=== PATIENT | male | born 1980 | race Two or more races ===

== ENCOUNTER 2021-09-04 07:37 | Outpatient (CLI) | payer OTHER, SELFPAY ==
--- NOTE | 2021-09-23 13:04 | WPDSLEEPSTUD ---
Sleep Study Date of Study: 09/04/21 <Radha Sparrow, DO - Last Filed: 09/23/21 13:40> Ordering Provider: Kieran Barth APRN <Radha Sparrow, DO - Last Filed: 09/23/21 13:40> Interpreting Physician: Radha Sparrow DO <Radha Sparrow, DO - Last Filed: 09/23/21 13:40> Sleep Study Type: Polysomnogram <Radha Sparrow DO - Last Filed: 09/23/21 13:40> Height: 1.78 m <Radha Sparrow DO - Last Filed: 09/23/21 13:40> Weight: 96.162 kg <Radha Sparrow DO - Last Filed: 09/23/21 13:40> Body Mass Index: 30.4 <Radha Sparrow DO - Last Filed: 09/23/21 13:40> Neck Circumference (inches): 16 <Radha Sparrow DO - Last Filed: 09/23/21 13:40> [place]: 22 <Radha Sparrow DO - Last Filed: 09/23/21 13:40> Reason for Sleep Study Hypersomnia, Unrefreshing sleep, <Radha Sparrow, DO - Last Filed: 09/23/21 13:40> Sleep History The patient is a 41-year-old male with anxiety/depression that had a PSG and MSLT he ordered by the pulmonology group for daytime hypersomnia. 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 He is currently on fluoxetine 20 mg daily. 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 The patient states that he occasionally awakens from sleep short of breath. He occasionally awakens at night with heartburn, belching or cough. He rarely snores and is never loud enough that others complain. He rarely has trouble sleeping when he has a cold. He denies waking up gasping for air throughout the night. He denies having breathing problems at night observed by others. He denies sweating excessively at night. He denies heart palpitation or irregular heartbeats throughout the night. He constantly falls asleep during the day and while driving. He denies sleep paralysis, cataplexy and hypnagogic/ hypnopompic hallucinations.. He constantly has trouble at work due to sleepiness. He denies having nightmares. He occasionally has thoughts racing through his mind. He denies feeling sad or depressed but occasionally has anxiety. He denies noticing parts of his body jerk. He denies kicking throughout the night. He rarely experiences crawling and aching feelings in his legs. He rarely has leg pain during the night. He rarely grinds his teeth during sleep and rarely awakens with jaw pain in the morning. He is rarely bothered by pain during the day and is rarely awakened by pain during the night. He occasionally wakes up feeling stiff in the morning with sore and achy muscles. When the patient is working the day shift, he will go to bed at midnight on both weekdays and weekends. 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 on both the weekdays and weekends. It takes him 20 minutes to fall asleep. He will wake up 4-5 times throughout the night. When he awakens, he will roll over and go back to sleep. When he is working on the day shift, he will awaken at 5:00 a.m. on the weekdays and weekends. 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 He typically gets 5 hours of sleep per night. He will stay in bed for 5 minutes after awakening in the morning. He currently lives with his and children. He denies consuming caffeinated beverages within 2 hours of bedtime. He does not engage in physical exercise before bedtime. He does not read or watch television before falling asleep. He will take naps in the afternoon or evening but they are not refreshing. <Radha Sparrow DO - Last Filed: 09/23/21 13:40> [facility] Past Medical History Medical History: Medical History Anxiety Depression <Radha Sparrow DO - Last Filed: 09/23/21 13:40> Family History Family Histor
[2021-09-23 13:20] VITALS: BMI 30.4
--- NOTE | 2021-09-23 13:44 | WPDSLEEPSTUD ---
Sleep Study Date of Study: 09/04/21 <Radha Sparrow, DO - Last Filed: 09/23/21 14:39> Ordering Provider: Kieran Barth APRN <Radha Sparrow DO - Last Filed: 09/23/21 14:39> Interpreting Physician: Radha Sparrow DO <Radha Sparrow DO - Last Filed: 09/23/21 14:39> Sleep Study Type: Polysomnogram <Radha Sparrow DO - Last Filed: 09/23/21 14:39> Height: 1.78 m <Radha Sparrow DO - Last Filed: 09/23/21 14:39> Weight: 96.162 kg <Radha Sparrow DO - Last Filed: 09/23/21 14:39> Body Mass Index: 30.4 <Radha Sparrow DO - Last Filed: 09/23/21 14:39> Neck Circumference (inches): 16 <Radha Sparrow DO - Last Filed: 09/23/21 14:39> [place]: 22 <Radha Sparrow DO - Last Filed: 09/23/21 14:39> Reason for Sleep Study Excessive daytime sleepiness without significant sleep disordered breathing <Radha Sparrow DO - Last Filed: 09/23/21 14:39> Sleep History The patient is a 41-year-old male with anxiety/depression that had a PSG and MSLT he ordered by the pulmonology group for daytime hypersomnia. 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 He is currently on fluoxetine 20 mg daily. 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 The patient states that he occasionally awakens from sleep short of breath. He occasionally awakens at night with heartburn, belching or cough. He rarely snores and is never loud enough that others complain. He rarely has trouble sleeping when he has a cold. He denies waking up gasping for air throughout the night. He denies having breathing problems at night observed by others. He denies sweating excessively at night. He denies heart palpitation or irregular heartbeats throughout the night. He constantly falls asleep during the day and while driving. He denies sleep paralysis, cataplexy and hypnagogic/ hypnopompic hallucinations.. He constantly has trouble at work due to sleepiness. He denies having nightmares. He occasionally has thoughts racing through his mind. He denies feeling sad or depressed but occasionally has anxiety. He denies noticing parts of his body jerk. He denies kicking throughout the night. He rarely experiences crawling and aching feelings in his legs. He rarely has leg pain during the night. He rarely grinds his teeth during sleep and rarely awakens with jaw pain in the morning. He is rarely bothered by pain during the day and is rarely awakened by pain during the night. He occasionally wakes up feeling stiff in the morning with sore and achy muscles. When the patient is working the day shift, he will go to bed at midnight on both weekdays and weekends. 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 on both the weekdays and weekends. It takes him 20 minutes to fall asleep. He will wake up 4-5 times throughout the night. When he awakens, he will roll over and go back to sleep. When he is working on the day shift, he will awaken at 5:00 a.m. on the weekdays and weekends. 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 He typically gets 5 hours of sleep per night. He will stay in bed for 5 minutes after awakening in the morning. He currently lives with his and children. He denies consuming caffeinated beverages within 2 hours of bedtime. He does not engage in physical exercise before bedtime. He does not read or watch television before falling asleep. He will take naps in the afternoon or evening but they are not refreshing. <Radha Sparrow DO - Last Filed: 09/23/21 14:39> [facility] Past Medical History Medical History: Medical History Anxiety Depression <Radha Sparrow DO - Last Filed:
[2021-09-23 13:48] VITALS: BMI 30.4
== END 2021-09-05 16:02 | disposition home or self-care (01) ==
PROVIDERS: PCP Family Medicine; Visit Provider Nurse Practitioner Family
DX: G47.10 Hypersomnia, unspecified (principal)
CPT/HCPCS: 95805; 95810

== ENCOUNTER 2021-09-27 13:39 | Outpatient (CLI) | payer OTHER, SELFPAY ==
[2021-09-27 14:07] LABS: Iron 81 ug/dL (49-181)
[2021-09-27 14:16] LABS: Percent Iron Saturation 24 % (20-50)
[2021-09-27 14:25] LABS: Free T4 Free Thyroxine 0.98 ng/mL (0.78-2.19)
[2021-09-27 15:14] LABS: Folic Acid 6.6 ng/mL (2.76->20)
== END 2021-09-27 13:40 | disposition home or self-care (01) ==
LOC: ANHLAB 13:41
PROVIDERS: PCP Family Medicine; Visit Provider Nurse Practitioner Family
DX: R53.83 Other fatigue (principal)
CPT/HCPCS: 36415; 82607; 82746; 83540; 83550; 84439; 84443

== ENCOUNTER 2022-03-14 15:25 | Emergency (ER) | payer OTHER, SELFPAY ==
--- NOTE | ~2022-03-14 | CT_ITS ---
EXAMINATION: CT abdomen pelvis w con DATE: 03/14/2022 16:51 INDICATION: Sudden onset of left lower quadrant abdominal pain TECHNIQUE: Computed tomography (CT) of the abdomen and pelvis was performed with 100 CC Omnipaque 300 intravenous contrast. Automated exposure control and iterative reconstruction technique were employe d. Exam dose: 662.63 mGy-cm total exam DLP. COMPARISON: None. FINDINGS: Bilateral gynecomastia. Minimal bilateral lower lobe dependent atelectasis or less likely s carring. No infiltrate or consolidation at the lung bases. Normal heart size. No pericardial or pleural effusion. There are multiple very small scattered hepatic hypodensities, likely small hepatic cysts and/or jeff ngiomas. The gallbladder is present. No gallbladder wall thickening or pericholecystic fluid or fat stranding. No bile duct or pancreatic duct dilatation. No pancreatic mass lesion or calcification. Normal splen ic size. Normal morphology of the adrenal glands. There is a 3 x 4.5 mm calculus at the left ureterovesical junction with mild left hydroureteronephros is. There is a punctate upper pole nonobstructing left renal calculus 2 mm 4 mm nonobstructing lower pole left renal calculi are noted. Pinpoint nonobstructing upper pole and approximately 2 1.7 mm mid nonobstructing right renal calculi. No right ureteral calculus or hydroureteronephrosis. Moderate diffuse thickening of the urinary bladder wall. Mild sigmoid colon diverticulosis; no CT evidence of diverticulitis. There is prominent of fecal mate rial within the colon but no bowel obstruction. No evidence of appendicitis. Normal caliber of the abdominal aorta. No intraperitoneal or retroperitoneal or pelvic mass lesion or adenopathy or ascites. No suspicious osteolytic or osteoblastic lesions. . IMPRESSION: 3 x 4.5 mm left ureterovesical junction calculus with mild left hydroureteronephrosis Mild bilateral nonobstructive nephrolithiasis Minimal sigmoid colon diverticulosis; no CT evidence of diverticulitis Hepatic small cysts and/or hemangiomas Reviewed, dictated and finalized at [facility] Reviewed, dictated and finalized at [facility]. RY
[2022-03-14 15:29] VITALS: BP 120/96; PULSE 66; RESP 16; TEMP 36.3; O2SAT 100
[2022-03-14 16:16] LABS: Basophils Percent Auto 0.8 % (0.2-1.2); Eosinophils Absolute Auto 0.2 K/mm3 (0-0.3); Eosinophils Percent Auto 3.8 % (0-4.4); Hematocrit 47.8 % (42.0-52.0); Hemoglobin 16.1 g/dL (14.0-18.0); Immature Granulocyte Absolute 0.01 K/mm3 (0.00-0.031); Immature Granulocyte Percent A 0.2 % (0-0.5); Lymphocytes Absolute Auto 1.48 K/mm3 (0.9-3.2); Lymphocytes Percent Auto 27.8 % (18.3-44.2); Mean Corpuscular HGB Conc 33.7 g/dl (32-36); Mean Corpuscular Hemoglobin 29.9 pg (26-34); Mean Corpuscular Volume 88.7 fl (80-100); Mean Platelet Volume 11.6 fl (7.4-10.4); Monocytes Absolute Auto 0.7 K/mm3 (0.1-0.6); Monocytes Percent Auto 12.2 % (2.6-8.5); Neutrophils Percent Auto 55.2 % (45.5-73.1); Platelet Count Result 211 k/mm3 (150-375); Red Blood Count 5.39 M/mm3 (4.6-6.20); Red Cell Distribution Width 14.4 % (11.5-14.5); White Blood Count 5.3 K/mm3 (4.5-10.0)
--- NOTE | 2022-03-14 16:21 | ED.ABDPAIN ---
HPI - Abdominal Pain General Chief Complaint: Abdominal Pain Stated Complaint: LUQ abdominal pain Time Seen by Provider: 03/14/22 15:53 Source: RN notes reviewed History of Present Illness HPI narrative: Patient presents emergency room from home for abdominal pain. Patient states symptoms began this morning pain developed on the left side of the abdomen described as sharp and stabbing with radiation to the back states he tried to have a bowel movement with minimal relief of the pain states he not taking pain medication the pain at home denies any fevers or chills, nausea vomiting diarrhea or any other symptoms Related Data Allergies Allergy/AdvReac Type Severity Reaction Status Date / Time No Known Allergies Allergy Unverified 03/14/22 16:21 Review of Systems Review of Systems: Gen.: Denies fevers or chills ENT: Denies congestion Respiratory: Denies shortness of breath or cough CV: Denies chest pain or palpitations GI: See HPI denies burning, urgency, frequency or hematuria Musculoskeletal: Denies back pain or muscle pain Neuro: Denies numbness, tingling, weakness or focal weakness Skin: Denies rash Except as documented, all other systems reviewed and negative [facility] Past Medical History Medical History Anxiety Depression Family History Family History Mother Diabetes mellitus Grandparent Cancer Grandparent Cancer Social History Social History Smoking end date: 11/09/12 Alcohol intake: current Drinks per week: 1 Alcohol use details: 1 deshawn a week Substance use: unknown Exam Narrative: APPEARANCE: No acute distress, nontoxic, resting in bed HEENT: Normocephalic, atraumatic, OMM RESPIRATORY: No respiratory distress, clear to auscultation bilaterally with no rhonchi wheezing or rales CARDIOVASCULAR: RRR s murmur ABDOMINAL: Soft nondistended tender palpation left lower quadrant left lower quadrant no tenderness right upper quadrant right lower quadrant no rebound or guarding MUSCULOSKELETAl: Moves all extremities. No clubbing, cyanosis or edema. NEURO: Awake and alert. Following commands, speech normal, no focal deficits SKIN:: Warm, dry. Normal Color PSYCHIATRIC: Normal affect/mood Course Course Emergency Course: Patient states that they are feeling much better at this time. States abdominal pain has improved. Repeat abdominal exam shows the patient's abdomen to be soft with no surgical abdomen present discussed with patient results of workup and diagnosis. Discussed need for follow-up with primary care physician, reasons to return to the emergency department in proper use of medication. Patient understands and agrees to current treatment plan Vital Signs Vital signs: Vital Signs Temperature 97.4 F L 03/14/22 15:29 Pulse Rate 66 03/14/22 15:29 Respiratory Rate 16 03/14/22 15:29 Blood Pressure 120/96 H 03/14/22 15:29 Pulse Oximetry 100 03/14/22 15:29 Temperature 97.4 F L 03/14/22 15:29 Pulse Rate 66 03/14/22 15:29 Respiratory Rate 16 03/14/22 15:29 Blood Pressure 120/96 H 03/14/22 15:29 Pulse Oximetry 100 03/14/22 15:29 MDM - Abdominal Pain MDM Narrative Medical decision making narrative: Patient's abdomen is soft without significant pain or signs of surgical abdomen on serial exams. Lab and x-ray evaluations are reviewed and patient is felt to be a reasonable candidate for outpatient management. Patient was instructed as to limitations of x-ray and laboratory evaluation and encouraged to return to ED or primary physician for repeat exam in 12 hours if continued or worsening pain Lab Data Result diagrams: 03/14/22 16:09 03/14/22 16:09 Labs: Lab Results 03/14/22 03/14/22 03/14/22 Range/Units 16:09 16:09 16:17 WBC 5.3 (4.5-10.0) K/mm3 RBC 5.3
[2022-03-14 16:27] LABS: Appearance Urine Slightly Cloudy (Clear); Bilirubin Urine Negative (Negative); Blood Urine 3+ (Negative); Glucose Urine UA Negative (Negative); Ketones Urine Negative (Negative); Leukocyte Esterase Ur Negative LEU/UL (Negative); Nitrate Urine Negative (Negative); Protein Urine 1+ mg/dL (Negative); Specific Grav Ur 1.015 (1.001-1.035)
[2022-03-14 16:28] LABS: Add Urine Microscopic? YES; Color Urine Dark Yellow (Yellow)
[2022-03-14 16:31] LABS: Alanine Aminotransferase 104 U/L (4-50); Albumin Level 4.3 g/dL (3.5-5.1); Alkaline Phosphatase 85 U/L (38-126); Anion Gap 5 mmol/L (8-16); Aspartate Amino Transferase 61 U/L (17-59); Blood Urea Nitrogen 11 mg/dL (9-20); Calcium 8.7 mg/dL (8.4-10.2); Carbon Dioxide 25 mmol/L (22-30); Chloride 106 mmol/L (98-107); Estimated CRCL calculation 101 ml/min; Estimated Glomerular Filt Rate > 60; Glucose 97 mg/dL (65-110); Lipase 105 U/L (23-300); Potassium 4.2 mmol/L (3.4-5.0); Sodium 136 mmol/L (137-145)
[2022-03-14 16:33] LABS: Mucus Urine Rare /lpf; RBC Urine >75 /hpf (0-2); WBC Urine 0-3 /hpf
[2022-03-14] MEDS: SODIUM CHLORIDE 0.9% IV 1,000 ML 999 ML IV CONT (16:37)
[2022-03-14] MEDS: KETOROLAC 30 MG/ML VIAL (*BKC) IV PUSH (16:38)
[2022-03-14] MEDS: TAMSULOSIN HCL 0.4 MG CAPSULE PO (17:24)
== END 2022-03-14 17:30 | disposition home or self-care (01) ==
PROVIDERS: Emergency Provider Emergency Medicine; PCP Family Medicine
DX: N13.2 Hydronephrosis with renal and ureteral calculous obstruction (principal); F41.9 Anxiety disorder, unspecified; F32.A Depression, unspecified
CPT/HCPCS: 36415; 74177; 80053; 81001; 83690; 85025; 96361; 96374; 99284; A9270; J1885; J7030; Q9967

== ENCOUNTER 2022-11-04 09:53 | Emergency (ER) | payer OTHER, SELFPAY ==
--- NOTE | ~2022-11-04 | XR_ITS ---
Lumbosacral Spine: AP, oblique, and lateral views Clinical History: Pain Findings: The normal lordotic curve is maintained. The vertebral bodies and posterior elements are i ntact. The intervertebral disc spaces are preserved. The sacroiliac joints are normally outlined. Impression: No significant abnormality. Reviewed, dictated and finalized at [facility]. FILER Impression: No significant abnormality.
[2022-11-04 10:14] VITALS: BP 125/79; PULSE 72; RESP 20; TEMP 36.6; O2SAT 98
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
[2022-11-04 11:19] VITALS: BP 122/83; PULSE 84; RESP 15; O2SAT 99
== END 2022-11-04 11:20 | disposition home or self-care (01) ==
LOC: ANHED 11:12
PROVIDERS: Emergency Provider Physician Assistant; PCP Nurse Practitioner
DX: S39.012A Strain of muscle, fascia and tendon of lower back, initial encounter (principal); V89.2XXA Person injured in unspecified motor-vehicle accident, traffic, initial encounter; F41.9 Anxiety disorder, unspecified; F32.9 Major depressive disorder, single episode, unspecified
CPT/HCPCS: 72110; 99283

== ENCOUNTER 2023-10-19 14:43 | Emergency (ER) | payer OTHER, SELFPAY ==
--- NOTE | ~2023-10-19 | XR_ITS ---
EXAMINATION: XR elbow LT min 3V DATE: 10/19/2023 15:05 INDICATION: Left elbow pain TECHNIQUE: Anteroposterior, two oblique and lateral views of the left elbow were obtained. COMPARISON: None. FINDINGS: Alignment is normal. No fracture or joint effusion. 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 Soft tissues are unremarkable. IMPRESSION: 1. No acute osseous abnormality. Reviewed, dictated and finalized at [facility]. [facility]
--- NOTE | ~2023-10-19 | CT_ITS ---
EXAMINATION: CT brain wo con INDICATION: Headache COMPARISON: None TECHNIQUE: Standard unenhanced head CT. The dose-length product (DLP) was 605.33 mGy-cm. The mA was a djusted according to patient size. Iterative reconstruction technique was employed. FINDINGS: No intracranial hemorrhage, acute infarction, or abnormal mass lesion. The ventricles are n ormal. No abnormal mass effect or midline shift. The worthy-white matter differentiation is normal. The basal cisterns are patent. The orbits are normal. There is mild mucosal thickening of the paranasal sinuses. IMPRESSION: 1. No acute intracranial abnormality. Reviewed, dictated and finalized at [facility]. REPORTER
[2023-10-19 14:54] VITALS: BP 136/90; PULSE 89; RESP 18; TEMP 36.6; O2SAT 100
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
== END 2023-10-19 16:34 | disposition home or self-care (01) ==
PROVIDERS: Emergency Provider Physician Assistant; PCP Internal Medicine Critical Care Medicine
DX: M25.522 Pain in left elbow (principal); S09.90XA Unspecified injury of head, initial encounter; Z87.891 Personal history of nicotine dependence; V89.2XXA Person injured in unspecified motor-vehicle accident, traffic, initial encounter; Y92.481 Parking lot as the place of occurrence of the external cause
CPT/HCPCS: 70450; 73080; 99284

== ENCOUNTER 2025-04-05 07:19 | Inpatient (IN) | payer BC, OTHER, SELFPAY ==
[2025-04-05] VITALS (23 sets, daily range): BP systolic 107–136; BP diastolic 74–98; PULSE 82–96; RESP 14–36; TEMP 36.8–36.9; O2SAT 96–99
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
--- OUTSIDE RECORDS SUMMARY | 2025-04-05 07:22 | XMS_ITS | Clinical Summary ---
Author Organization [facility] Address [address] [place] [address] Care Team Providers Care Planner Scheduler Name Role Phone Unavailable Primary Care Provider Unavailabl e Source Comments [facility],non-owned Affiliates and Associated Physician Practices is amultiple site organization consisting of ambulatory clinics and hospital sitesin [place], [place], [place] and [place]. This disclosure is being madepursuant to the Care Everywhere program and may not contain all information available regarding this patient. Last updated 18.[facility] Medications * Be aware that medications may not be up to date on this document. Alwaysverify current medications with the patient. ketoconazole (NIZORAL) 2 % shampoo 120 mL 5 04/27/2017 Active Active Problems Problem Noted Date Diagnosed Date Neoplasm of uncertain behavior of skin 7 Other seborrheic dermatitis 04/28/2017 Immunizations Immunization Administration Dates Next Due INFLUENZA VACCINE, QUADR. (F LUZONE; FLULAVAL; FLUARIX; AFLURIA QUADRIVALENT; 6MO+), 0.5 ML (IIV4) 09/23/2018 Family History Medical History Relation Name Comments CVA Neg Hx Cancer - Breast Neg Hx Cancer - Skin, Melanoma Neg Hx Cancer - Skin, Non Melanoma Neg Hx Eczema Neg Hx Hemophilia Neg Hx Psoriasis Neg Hx Social History Tobacco Use Types Packs/Day Years Used Date Smoking Tobacco: Never Smokeless Tobacco: Never Alcohol Use Standard Drinks/Week Comments No 0 (1 standard drink = 0.6 oz pur e alcohol) Sex and Gender Information Value Date Recorded Sex Assigned at Not on file Legal Sex Male 5:35 PM [employer] Gender Identity Not on file Sexual Orientation Not on file Plan of Treatment Health Maintenance Due Date Last Done Comments LIPID TESTING 1981 HIV SCREENING 1996 HEPATITIS C SCREENING 09/16/1999 DTAP/TDAP/TD VACCINES (1 - Tdap) 2000 HEPATITIS B VACCINE (1 of 3 - 19+ 3-dose series) 2000 COVID-19 VACCINE (1 - 2023- season) 2024 DEPRESSION SCREENING 11/09/2024 INFLUENZA VACCINE (Season Ended) 2025 09/23/2018, 09/01/2016, 07/28/2015, Additional history exists ZOSTER VACCINE (1 of 2) 2031 HIB VACCINE Aged Out No longer eligi ble based on patient's age to complete this topic HPV VACCINE Aged Out No longer eligi ble based on patient's age to complete this topic MENINGOCOCCAL (Group B) VACCINE SHARED DECISION-MAKING Aged Out No longer eligible based on patient's age to complete this topic MENINGOCOCCAL GROUPS A/C/Y/W VACCINE Aged Out No longer eligible based on patient's age to complete this topic PNEUMOCOCCAL VACCINE Aged Out No long er eligible based on patient's age to complete this topic Insurance AMBER
--- OUTSIDE RECORDS SUMMARY | 2025-04-05 07:22 | XMS_ITS | Encounter Summary ---
Author Name [facility] ([place]) Organization [facility] of [facility] ([place]) Address [address] [place] [address] Care Team Providers Care Reformatory Attendant Name Role Phone DOMINIQUE MCGUIRE Primary Care Provider Unavailabl e Selected Encounter This section includes the information on record at [place] for the Encounter. Date/Time Encounter Type Encounter Description Reason Provider Source March 29, 2025 02:00 PM OFFICE O/P EST MOD 30 MIN PRIMARY CARE/MEDICINE ICD-10-CM R06.00 Dyspnea, unspecified DOMINIQUE MCGUIRE IHE Encounter Template Text not used by [place] Assessments - Encounter Diagnoses This section includes the primary and secondary diagnoses documented for the Encounter. 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 This section includes future appointments and future orders which are active, pending or scheduled. Future Appointments This section includes appointments that were scheduled to occur 6 months from the date of the Encounter, up to a maximum of 20 appointments. The data comes from all [place] treatment facilities. Appointment Date/Time Appointment Type Appointme nt Facility Name April 07, 2025 01:30 PM AMBULATORY - MEDICINE [facility] Active, Pending, and Scheduled Orders This section includes a listing of several types of active, pending, and scheduled orders, including clinic medications orders, diagnostic test orders, procedure orders and consult orders; where the start date of the order is 45 days before the date of the Encounter or 45 days after the date of theEncounter. The data comes from all [facility]. Test Date/Time Test Type Test Details Facility Name March 30, 2025 09:08 AM Procedure Order CP TTE ECH OCARDIOGRAM ANTELMO CP TTE ECHOCARDIOGRAM STL Proc Compliance Technician's Choice [facility] Lab Results: +/- 30 days of the encounter This section includes the Chemistry and Hematology Lab Results on record with [place] for the patient. Radiology Reports and Pathology Reports are provided separately, in subsequent sections. Lab Results This section contains the Chemistry/Hematology Results that were resulted 30 days before or 30 daysafter the date of the Encounter. Date/Time Source Result Type Result - Unit Interpretation Reference Range Specimen Type Comment March 29, 2025 03:09 PM [facility] URINALYSIS (STL-PB) URINE Specimen Type: URINE No comment entered. Ordering Provider: DOMINIQUE MCGUIRE Report Released Date/Time: March 29, 2025 02:38 PM Reporting Lab: [facility] [phone] Performing Lab: [facility] [id number] URINE COLOR Yellow Yellow U.BILIRUBIN Negative mg/dL Negative U.PH 6.0 5.0-8.0 APPEARANCE Clear Clear U.NITRITE Negative mg/dL Negative URN.GLUCOSE 500 mg/dL H Negative URN.PROTEIN 10 mg/dL H URN.UROBILINOGEN Normal mg/dL Normal URN.BLOOD Negative mg/dL Negative-Trace URN.KETONES Negative mg/dL Negative-Trac e URN.LEUK.EST. Negative mg/dL Negative-Tr tom URN.SPECIFIC GRAVITY 1.018 March 29, 2025 03:09 PM [facility] URINE DRUG SCREEN (STL) URINE Specimen Type: URINE Comment: The cut-off value for Fentanyl was laboratory developed and its performance characteristics confirmed by the [facility] laboratory thru method comparison with reference laboratory and medication chart review. The laboratory is regulated under CLIA as qualified to perform high-complexity testing. Fentanyl is used for clinical purposes in conjunction with other laboratory tests. Ordering Provider: DOMINIQUE MCGUIRE Report Released Date/Time: March 29, 2025 02:38 PM Reporting Lab: [facility] [place] [address] Performing Lab: [facility] [place] [address] ETHANOL <10.0 mg/dL 0-9 AMPHET/METHAMPHETAMINE Negative ng/mL COCAINE METABOLITES Negative ng/mL BENZODIAZEPINES (STL) Negative ng/mL CANNABINOIDS Negative ng/mL METHADONE Negative ng/mL OPIATES Negative ng/mL CREATININE URINE/OTHERS 69.5 mg/dL 63.0- 166.0 OXYCODONE (GMWPC-RAI-DU) Negative ng/mL BUPRENORPHINE (STL-PB-MA) Negative ng/mL FENTANYL (STL) Negative ng/mL March 29, 2025 03:05 PM [facility] COMPREHENSIVE METABOLIC PANEL PLASMA Specimen Type: PLASMA Comment: No hemolysis noted. Ordering Provider: DOMINIQUE MCGUIRE Report Released Date/Time: March 29, 2025 02:38 PM Reporting Lab: [facility] [place] [address] Performing Lab: [facility] [place] [phone] CREATININE 1.31 mg/dL H 0.70-1.30 UREA NITROGEN 11.4 mg/dL 9.0-25.0 GLUCOSE 67 mg/dL L 72-99 SODIUM 138 meq/L 136-145 POTASSIUM 4.0 meq/L 3.5-5.0 CHLORIDE 104 meq/L 98-107 CARBON DIOXIDE 25 meq/L 22-31 CALCIUM 9.5 mg/dL 8.4-10.4 PROTEIN 7.7 g/dL 6.0-8.6 ALBUMIN 4.1 g/dL 3.4-5.0 TOTAL BILIRUBIN 2.3 mg/dL H 0.2-1.2 ALKALINE PHOSPHATASE 94 U/L 40-150 AST/SGOT 26 U/L 5-34 ALT/SGPT 32 U/L 8-40 EGFR (CKD-EPI 2020) 69.26 >60 March 29, 2025 03:05 PM [facility] LIPID PANEL (STL) PLASMA Specimen Type: PLASM A Comment: No hemolysis noted. Ordering Provider: DOMINIQUE MCGUIRE Report Released Date/Time: March 29, 2025 02:38 PM Reporting Lab: [facility] [place] [address] Performing Lab: [facility] [place] [address] CHOLESTEROL 152 mg/dL 0-200 TRIGLYCERIDE 48 mg/dL 0-150 CALCULATED LDL 82 mg/dL See Interp HDL(New) 60 mg/dL > 40 March 29, 2025 03:05 PM [facility] CBC BLOOD Specimen Type: BLOOD Comment: SCAN OF SLIDE AGREES WITH AUTOMATED DIFF. Ordering Provider: DOMINIQUE MCGUIRE Report Released Date/Time: March 29, 2025 02:38 PM Reporting Lab: [facility] [place] [phone] Performing Lab: [facility] [place] [phone] WBC 8.4 10*3/uL 3.6-11.2 RBC 5.32 10*6/uL 4.10-5.70 HGB 15.5 g/dL 13.1-16.8 HCT 45.6 38.2-48.4 MCV 85.7 fL 80.0-100.0 MCH 29.1 pg 27.0-34.0 MCHC 34.0 g/dL 33.0-36.0 PLT 219 10*3/uL 150-400 MPV 11.1 fL 7.5-11.2 PLT. (SMEAR EST.) ADEQUATE ADEQUATE RDW 13.9 11.8-15.1 LYMPHOCYTES, AUTO % 11 MONOCYTES, AUTO % 12 NEUTROPHILS, AUTO % 73 EOSINOPHILS, AUTO % 3 BASOPHILS, AUTO % 1 LYMPHOCYTES, ABSOLUTE 0.94 10*3/uL 0.77- 4.50 MONOCYTES, ABSOLUTE 1.02 10*3/uL H 0.19-0. 80 NEUTROPHILS, ABSOLUTE 6.08 10*3/uL 2.10- 8.00 EOSINOPHILS, ABSOLUTE 0.25 10*3/uL 0.00- 0.60 BASOPHILS, ABSOLUTE 0.05 10*3/uL 0.00-0. 20 IMMATURE PLT FRACTION 4.3 1.0-7.0 NRBC% 0 NORMRBC YES SCRNPERF YES March 29, 2025 03:05 PM [facility] HGA1C BLOOD Specimen Type: BLOOD No comment entered. Ordering Provider: DOMINIQUE MCGUIRE Report Released Date/Time: March 29, 2025 02:38 PM Reporting Lab: [facility] [phone] Performing Lab: [facility] [phone] HGA1C 5.1 4.0-6.0 March 29, 2025 03:05 PM [facility] HEP C Ab HCV Ab (STL) SERUM Specimen Type: SE RUM No comment entered. Ordering Provider: DOMINIQUE MCGUIRE Report Released Date/Time: March 29, 2025 02:38 PM Reporting Lab: [facility] [address] [facility] [phone] Performing Lab: [facility] [address] [place] [phone] HEP C Ab HCV Ab (STL) Nonreactive Nonrea ctive March 29, 2025 03:05 PM [facility] HEP B CORE IgM AB. ([id number]) SERUM Spe cimen Type: SERUM No comment entered. Ordering Provider: DOMINIQUE MCGUIRE Report Released Date/Time: March 29, 2025 02:38 PM Reporting Lab: [facility] [address] [place] [place] [address] Performing Lab: [facility] [address] [phone] HEP B CORE IgM AB. ([id number]) Nonreactive Nonreactive March 29, 2025 03:05 PM [facility] FREE T4 (STL) PLASMA Specimen Type: PLASM A No comment entered. Ordering Provider: DOMINIQUE MCGUIRE Report Released Date/Time: March 29, 2025 02:38 PM Reporting Lab: [facility] [place] [address] Performing Lab: [facility] [place] [address] FREE T4 (STL) 1.30 ng/mL 0.70-1.48 March 29, 2025 03:05 PM [facility] TSH W/ REFLEX FT4 (STL) PLASMA Specimen Type: PLASMA No comment entered. Ordering Provider: DOMINIQUE MCGUIRE Report Released Date/Time: March 29, 2025 02:38 PM Reporting Lab: [facility] [place] [address] Performing Lab: [facility] [place] [address] TSH 1.250 u[IU]/mL 0.470-5.000 March 29, 2025 03:05 PM [facility] VITAMIN D, 25-HYDROXY SERUM Specimen Type: SE RUM No comment entered. Ordering Provider: DOMINIQUE MCGUIRE Report Released Date/Time: March 29, 2025 02:38 PM Reporting Lab: [facility] [place] [address] Performing Lab: [facility] [facility] [phone] VITAMIN D, 25-HYDROXY 11.1 ng/mL L 30-96 Vital Signs: All taken on the encounter date This section contains inpatient and outpatient Vital Signs collected on the date of the Encounter. Date/Time Temperature Pulse Blood Pressure Respiratory Rate SP02 Pain Height Weight Body Mass Index Source March 29, 2025 02:19 PM 98.2 83 110/73 18 99 0 186.4 27 [facility] Social History: Smoking Status (Most current) and Tobacco Use (All prior to encounter date) This section includes the most current, and the historical, smoking and tobacco- related health factors from the [place] facility where the Encounter took place. Current Smoking Status This section includes the most current smoking, or tobacco-related health factor, from the [place] facility where the Encounter took place. Date/Time Current Smoking Status Comment Facil ity Jun 13, 2024 02:00 PM [facility] NEVER USED [facility] Radiology Reports: +/- 30 days of the encounter Radiology Reports For cases when an order for radiology services may have been completed prior to the date of the Encounter, the report list includes the Radiology Reports that were completed up to 30 days before dateof the Encounter. For cases when an order for radiology services may have been completed after the date of the Encounter, the report list also includes the Radiology Reports that were completed up to30 days after date of the Encounter. The data comes from all [place] treatment facilities. Date/Time Radiology Report Provider Source March 29, 2025 02:58 PM CHEST X-RAY, 2 VIE WS: JESÚS RIOS I [id number] [phone] [id number] Exm Date: MARCH 29, 2025@14:58 Req Phys: DOMINIQUE MCGUIRE Pat Loc: [facility] PCP (Meena'g Loc) Img Loc: [facility]OLOGY Service: [facility], [facility] [address] [place], [place] [id number] (Case [id number] COMPLETE) CHEST X-RAY, 2 VIEWS (RAD Detailed) CPT:80670 Reason for Study: dyspnea x 1.5 mths Clinical History: Report Status: Verified Date Reported: MARCH 30, 2025 Date Verified: MARCH 30, 2025 Manager Track E-Sig:/ES/JACKIE HYMAN Report: CASE #: [id number] EXAMINATION: CHEST X-RAY, 2 VIEWS HISTORY: dyspnea x 1.5 mths COMPARISON: No prior study is available for comparison. FINDINGS: There is no focal consolidation, pleural effusion, or pneumothorax. Linear atelectasis in the left lower lung. The cardiomediastinal silhouette is normal, although the heart size projects at the upper limits of normal. The bony thorax is intact. Impression: No acute pulmonary process. Borderline cardiac enlargement. Dictated by Naomy Kaufman MD I, Jackie Hyman, have reviewed the images and report and concur with these findings. Primary Interpreting Staff: JACKIE HYMAN, Diagnostic Radiologist (Manager Track) Primary Interpreting Resident: NAOMY KAUFMAN M.D., RESIDENT PHYSICIAN PGY 3 [facility] /JACKIE HAWKINS [facility] Encounter Notes: All associated encounter notes This section contains the clinical notes associated to the Encounter. Date/Time Encounter Note(s) Provider Source March 30, 2025 08:42 AM PHYSICIAN LETTERS: LOCAL TITLE: TEST RESULT GENERAL LETTER STL STANDARD TITLE: PHYSICIAN LETTERS DATE OF NOTE: MARCH 30, 2025@08:42 ENTRY DATE: MARCH 30, 2025@08:42:10 AUTHOR: DOMINIQUE MCGUIRE EXP COSIGNER: URGENCY: STATUS: COMPLETED [facility] [address] [place] [address] MARCH 30, 2025 JESÚS RIOS [address] [place], [place] [address] Dear Jesús Rios, I would like to update you on your recent test results. LIPID PROFILE - High cholesterol and triglycerides (lipids) are risk factors for heart disease. Your cholesterol should fall between 140 and 200, and your triglycerides levels should be less than or equal to 150. HDL is the good cholesterol and should ideally be greater than 40. LDL is the bad cholesterol and optimal levels should be less than 100 (near optimal is between 100 and 129). TRIGLYCERIDE 48 mg/dL 03/29/2025 15:05 CHOLESTEROL 152 mg/dL 03/29/2025 15:05 HDL(New) 60 mg/dL 03/29/2025 15:05 CALCULATED LDL 82 mg/dL 03/29/2025 15:05 No DIRECT LDL EO data found These readings are within normal limits. HEMOGLOBIN A1C - Gives us information about your diabetes (sugar or glucose) control over the past 3 months. Your target is to keep your A1C below 0 %. HGA1C 5.1 % 03/29/2025 15:05 These readings are within normal limits. CBC - A complete blood count (CBC) gives important information about the kinds and numbers of cells in the blood, especially red blood cells, white blood cells, and platelets. HGB 15.5 g/dL 03/29/2025 15:05 HEMATOCRIT 45.6 % (03/29/25 15:05) PLT 219 10*3/uL 03/29/2025 15:05 WHITE BLOOD COUNT 8.4 10*3/uL (03/29/25 15:05) These readings are within normal limits. CHEM 7 - This is important information about the current status of your kidneys, liver, and electrolyte and acid/base balance as well as of your blood sugar and blood proteins. SODIUM 138 mEq/L 03/29/2025 15:05 POTASSIUM 4.0 mEq/L 03/29/2025 15:05 CHLORIDE 104 mEq/L 03/29/2025 15:05 UREA NITROGEN 11.4 mg/dL 03/29/2025 15:05 CREATININE 1.31 H mg/dL 03/29/2025 15:05 CALCIUM 9.5 mg/dL 03/29/2025 15:05 CARBON DIOXIDE 25 mEq/L 03/29/2025 15:05 GLUCOSE 67 L mg/dL 03/29/2025 15:05 EGFR (CKD-EPI 2020) 69.26 03/29/2025 15:05 These readings are within normal limits. except has high creatanine levels ,would advise not to take ibuprofen or aleve ,keep yourself hydrated ,avoid taking creatine powder if doing it ,will darryl on next appt Hep C - This is important information about your exposure to infectious disease. Infection with hepatitis C can lead to liver damage. Hepatitis C has effective treatment. [place] [facility] Hep C tests in last five years. HEP C Ab HCV Ab ([facility]) Nonreactive S/CO (03/29/25 15:05) The reading for Hep C was negative . LIVER FUNCTION PANEL - These are tests for liver function: PROTEIN 7.7 g/dL 03/29/2025 15:05 ALBUMIN 4.1 g/dL 03/29/2025 15:05 TOTAL BILIRUBIN 2.3 H mg/dL 03/29/2025 15:05 ALKALINE PHOSPHATASE 94 U/L 03/29/2025 15:05 AST/SGOT 26 U/L 03/29/2025 15:05 ALT/SGPT 32 U/L 03/29/2025 15:05 These readings are within normal limits. except elevated total bilirubin will darryl on next appt TSH - Thyroid-stimulating hormone (also known as TSH or thyrotropin) is a peptide hormone synthesized and secreted by thyrotrope cells in the anterior pituitary gland, which regulates the endocrine function of the thyroid gland. TSH TSH 1.250 uIU/mL 03/29/2025 15:05 These readings are within normal limits. VITAMIN D - Helps promote the proper utilization of calcium and phosphorus, thereby producing proper bone maintenance. VITAMIN D, 25-HYDROXY 11.1 L ng/mL 03/29/2025 15:05 These results are abnormal. so will start on high dose of vitamin D2 calledergcalciferol 1250mcg once wkly and along with that start taking over the counter vitamin D3 50mcg daily and iwll darryl the levels on next appt URINALYSIS - A urinalysis (or UA) is an array of tests performed on urine and one of the most common methods of medical diagnosis. URINALYSIS URINE COLOR Yellow 03/29/2025 15:09 APPEARANCE Clear 03/29/2025 15:09 U.PH 6.0 03/29/2025 15:09 U.BILIRUBIN Negative mg/dL 03/29/2025 15:09 U.NITRITE Negative mg/dL 03/29/2025 15:09 These readings are within normal limits. except high levels of glucose in it so will darryl before the next appt Chest xrays showed FINDINGS: There is no focal consolidation, pleural effusion, or pneumothorax. Linear atelectasis in the left lower lung. The cardiomediastinal silhouette is normal, although the heart size projects at the upper limits of normal. The bony thorax is intact. Impression: No acute pulmonary process. Borderline cardiac enlargement. left lower lung is not fully expanding so would advise you to do breathing excercises ie take 10 deep breaths every hour while awake which will help in full expansion of the lungs . Have ordered for echocardiogram due to heart size on upper limit . if needed might have to refer to cardiology or lung specialist pls keep appt for venous dopplers ordered PLS HAVE YOUR LABS DONE FEW DAYS BEFORE YOUR NEXT APPT WITH ME IN 12/2025 FUTURE APPOINTMENTS: 01/03/2026 11:30 [facility] PCP Sincerely, Dominique Mcguire MD STAFF PHYSICIAN JESÚS RIOS III, [facility] March 29, 2025 02:27 PM PRIMARY CARE NOTE: LOCAL TITLE: PRIMARY CARE PROVIDER ESTABLISHED VISIT ST[facility] STANDARD TITLE: PRIMARY CARE NOTE DATE OF NOTE: MARCH 29, 2025@14:27 ENTRY DATE: MARCH 29, 2025@14:27:46 AUTHOR: DOMINIQUE MCGUIRE EXP COSIGNER: URGENCY: STATUS: COMPLETED Patient is 44 and BLACK OR Self Identified Gender - NONE FOUND Reason for visit:Scheduled follow-up Chief Complaint: for routine f/u and sob since 1.5 mths History of Present Illness: 44 yo aam with pmh of PTSD/depression/anxiety,hyper somnolence( with a documented mean sleep latency of a little over 5 minutes) ,seborrohic dermatitis ,kidney stone has come for routine f/u and sob since 1.5 mths . C/o sob/cant catch his breath since 1.5 mths ,has dry cough since 3 mths ,traveled to [place] in early 02/2024 ,denies cp,pain/edema of legs ,fc,recent uri, orthopnea /pnd ,nocturia ,dizziness,black/bloody stools ,excessive wt loss or appetite loss ,+palptiationss ,does not smoke ,used to smoke cigars x 6 mths quit [id number].+ FH of cad mother and father both Per pt was dx with ch ptsd in 2020,has not lost interest in the things he enjoys like playing [email or web address] game ,pickle ball ,concentration and energy level is good with adderall,libido is fine ,denies SI/HI,denies night ochoa/flash backs but has bad anger oubursts and the whole deal may last for more than a wk but better since been on adderall ,prior to it was on modafanil , trying to work on his anger and no outbursts .Has hypersomnolence for yrs ,denies guilt feeling ,excessive wt gain/loss Has had sleep study in [employer] and was dx with hypersomnolence without sleep apnea ,was on modafanil but switched to adderall getting from his sleep dr from [facility] in [place] . He works 6 am to 6 pm for 16 weeks, switches to 6 pm to 6 am for 16 weeks. 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 He tries to have a regular schedule as much as possible. Shift work contributes to his excessive sleepiness while he is working. as dw the pt his Excessive daytime sleepiness may improve also if he can get off rotating shifts and stay on a consistent schedule for day and night but he cannot get off rotating shifts due to his line of work. SOCILAL HISTORY Marital status:single living with his gf since 12/2023 . 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 Alcohol:2shots of whiskey daily Excercise: pickle ball 4-5x/wk Diet:regular Sexual History:active with his gf of 6 mths IMMUNIZATIONS/HEALTH MAINTENANCE Tetanus:in 2021 Influenza:09/2023 Pneumococcal: SARS-COV-2 (COVID-19) Pfizer July 25, 2021 SARS-COV-2 (COVID-19) Pfizer August 15, 2021 COLONSCOPY:never PAST MEDICAL HISTORY/SURGICAL HISTORY PTSD/depression/anxiety,hyper somnolence with a documented mean sleep latency of a little over 5 minutes ,seborrohic dermatitis ,kidney stone surgeries :vasectomy FAMILY HISTORY Father:alive 63 yo ,has cad Mother:alive 63,is healthy Siblings:2 sisters are healthy Children: 4 sons all healthy REVIEW OF SYSTEMS ON ROS General: No fevers/chills,no recent change in wt. HEENT: No ABAD, auditory changes; no rhinorrhea, no sore throat.no blurry vision. Cardiovascular:+SOB/palpitati ons , No chest pain . Respiratory:+SOB, dry cough GI: No diarrhea or constipation,no nausea and vomiting,no BRBPR.no gerd Muscle/Skeletal:denies myalgias/arthralgias Neuro: No TIA or stroke symptoms.no memory loss. :+h/o kidney stones No changes in urinary frequency/urgency; no dysuria or blood in urine Endocrine:no DM,no thyroid problem. Skin:+SD,no rashes,no skin other problems Psych:+PTSD/depression/anxiet y,hypersomnolence( with a documented mean sleep latency of a little over 5 minutes). Problem List: 1) Urethritis * (ICD-9-CM 597.80) 2) Posttraumatic stress disorder 3) Depression 4) Irritability and anger 5) Narcolepsy 6) Nephrolithiasis 7) Seborrhoeic dermatitis 8) Exposure to potentially hazardous substance ([facility] [id number]) Medication Review: The essential med list for review which includes the patient's active VA prescriptions and if applicable, remote VA prescriptions, non-VA prescriptions, and discontinued VA prescriptions within the last 90 days and known allergies including local and remote allergies have been reviewed. Allergies:Patient has answered NKA Active and Recently Outpatient Medications (excluding Supplies): Active Non-VA Medications Status 1) Non-VA AMPHETAMINE/DEXTROAMPH RESIN 25MG SA CAP 25MG BY ACTIVE MOUTH EVERY MORNING Indication: FOR NARCOLEPSY 2) Non-VA AMPHETAMINE/DEXTROAMPHETAMINE 10MG TAB 10MG BY MOUTH ACTIVE AT NOON Indication: FOR NARCOLEPSY Physical Exam VITALS (most recent, as listed in the electronic record): B/P: 110/73 (03/29/2025 14:19) Pulse: 83 (03/29/2025 14:19) Temperature: 98.2 F [36.8 C] (03/29/2025 14:19) Weight: 186.4 lb [84.55 kg] (03/29/2025 14:19) Height: 70 in [177.8 cm] (01/16/2025 14:41) BMI: 26.8 Pain: 0 (03/29/2025 14:19) (0-10 scale) PHYSICAL EXAM GENERAL:Healthy looking male found to be in no acute distress. SKIN:nml HEENT:ATNC,EOMI,PERRLA,Throat is clear NECK:no lymphadenopathy and thyroid not enlarged. CVS:S1/S2 NSR,with no murmur or gallop,JVD not elevated,no carotid bruit. RESP:CTA and percussion. ABDOMEN:soft ntnd,+ bowel sounds,no mass/organomegaly palpable. EXTREMITIES:no edema/clubbing/cyanosis no calf tenderness ,negative inga sign bl MUSCULOSKELETAL SYSTEM: NEURO:Alert ,orientated x 3,with no focal neurological deficet. ASSESSMENT AND PLAN 1.Dyspnea since 1.5 mths(since long drive) -exam was benign today -ck cxrays ,cbc ,venous dopplers -EKG today showed :NSR,non specific T wave ab,QTcB>480msedc -advised to go to the er if sxs get worse -cxrays showed upper nl limit cardiac size,will ck TTE -refer to cardiology after above eval -strong FH of cad (parents) 2. PTSD/depression/anxiety /anger outbursts: -stble and better ,not on lamictal anymore ,[facility] -pt declined MH referral ,was referred to [facility] but failed to schedule -denies SI/HI,aware of crisis line #s in case of emergency 3.narcolepsy/hypersomnolence/ excessive daytime sleeepiness (EDS) -on adderall xr 25 mg daily am and adderall 10 mg in the afternoon from his sleep doctor from [facility] in [place] tel # [phone], - pt again requested to bring in his sleep study and after will refer to pul - sleep hygiene dw the pt 4.tinnitus /hearing loss : -pt had hearing test yesterday on 03/28/2025 for C&P ,pt had the report with him stating pt has positions tinnitus ,high frequency condujctive component (rt 300-4000Hz,left 3000Hz)and hypercompliant tympanograms and they recommended to be referred to ent so will refer to ent /audiology 5.seborrhic dermatitis : -much better since got exemption of 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 -was using ketoconazole shampoo which helped 6.h/o kidney stones in 2021: -advised to drink plenty of water and cut back on salt intake 7.bl elbow pain : -stable on otc apap and f/u with PT 6.HM: -ck annual screening labs today including lipids and aic -crc screen at age 45 -AAA screen at age 65 -immunizations Tetanus:in 2021 Influenza:09/2023 Pneumococcal: SARS-COV-2 (COVID-19) Pfizer July 25, 2021 SARS-COV-2 (COVID-19) Pfizer August 15, 2021 .The plan of treatment were d/w including expected therapeutic benefits and potential side effects of prescribed medication and treatments.Medication reviewed and reconciled with the patient.Veteram verbalizes understaning and is in agreement with the plan of care.Pt instructed to keep all appointments and contact nurse coordinator for any additional problems.Discussed role of er,urgent care and walk in policies.Patient acknowledges understanding of these instructions. RTC:8 mths CLINICAL REMINDERS COMPLETED COVID-19 Immunization-L,N,P,PH,U: Refused Moderna Monovalent COVID-19 vaccine Immunization: COVID-19 (MODERNA), MRNA, LNP-S, PF, 50 MCG/0.5 ML (AGES 12+ YEARS) Refusal Reason: PATIENT DECISION Patient refuses all immunization(s) in the COVID-19 group Date Documented: 03/29/25 14:40 Influenza Immunization - L,N,P,PH,U: The patient has received the seasonal influenza vaccine for the current season at another location. Documented: INFLUENZA, UNSPECIFIED FORMULATION Historical Date Administered: Aug 2024 Exact date unknown Information Source: FROM PATIENT'S RECALL Tdap Immunization - L,N,P,PH,U: The patient declines to receive the recommended dose of Tdap vaccine. Immunization: TDAP Refusal Reason: PATIENT DECISION Patient refuses all immunization(s) in the TDAP group Comment: might have had in 2021 Date Documented: 03/29/25 14:52 /freddie/ Dominique Mcguire MD STAFF PHYSICIAN Signed: 03/30/2025 08:42 DOMINIQUE MCGUIRE [facility] March 29, 2025 02:22 PM NURSING NOTE: LOCAL TITLE: V15 PACT FACE TO FACE NOTE ST STANDARD TITLE: NURSING NOTE DATE OF NOTE: MARCH 29, 2025@14:22 ENTRY DATE: MARCH 29, 2025@14:22:33 AUTHOR: LUIS ASKEW EXP COSIGNER: URGENCY: STATUS: COMPLETED Provider Visit: Patient Identifiers : Full Name Date of Reason for visit: Established Follow-Up Mode of Arrival: Ambulatory Allergy Review: ALLERGIES/ADVERSE REACTIONS - NONE FOUND Allergy list reviewed and remains current. Recent Vital Signs: Temperature: 98.2 F [36.8 C] (03/29/2025 14:19) Pulse: 83 (03/29/2025 14:19) Respiration: 18 (03/29/2025 14:19) B/P: 110/73 (03/29/2025 14:19) Pain: 0 (03/29/2025 14:19) Wt: 186.4 lb [84.55 kg] (03/29/2025 14:19) Ht: 70 in [177.8 cm] (01/16/2025 14:41) BMI: 26.8 POX: 99% (03/29/2025 14:19) Would you like to discuss any personal problem, family problem, alcohol use, drug use, or a mental or emotional illness? No Contact provided Primary Care phone number and encouraged to call if any questions or concerns. Review that after hours nurse line [phone] and emergency room are available 01/06 for patient use. Contact verbalized good understanding. [facility] - PHP MAP: PERSONAL HEALTH PLAN INVENTORY & MAP 's Response: Megan /freddie/ LUIS ASKEW LICENSED PRACTICAL NURSE Signed: 03/29/2025 14:23 LUIS ASKEW [facility]
--- OUTSIDE RECORDS SUMMARY | 2025-04-05 07:23 | XMS_ITS | Clinical Summary ---
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
--- OUTSIDE RECORDS SUMMARY | 2025-04-05 07:23 | XMS_ITS | Continuity of Care Document ---
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 It does not include entries that were removed or entered in error. Problem Status Onset Date Problem Type Date of Resolution Comments Source Occupational disorder Active Condition 8320R-932D [facility] Prehypertension Active Condition 8320R 932D [facility] Conductive hearing loss Active Condition [facility] Depression Active Condition [facility] Exposure to potentially hazardous substance ([facility] [id number]) Active Condition Jun 15 4 Entered By: LOLI TOBIAS Comment: Entered automatically through ARGENIS Problem List documentation program LISA [facility] Irritability and anger Active Condition [facility] Narcolepsy Active Condition [facility] Nephrolithiasis Active Condition [facility] Posttraumatic stress disorder Active Condition [facility] Seborrhoeic dermatitis Active Condition [facility] Tinnitus Active Condition [facility] Urethritis * (ICD-9-CM 597.80) Active Condition [facility] ASSESSMENT OF PATIENT CONDITION WORK STATUS Active Condition DoD CELLULITIS Inactive Condition RT.NECK, OPEN WOUND, CONFIRMED MRSA. [facility] ASSESS PATIENT CONDITION WORK-RELATED OCCUPATIONAL DISEASE Active Condition [facility] Patient Education - Injury Prevention Active Condition [facility] visit for: ears / hearing exam Inactive Condition [facility] PREHYPERTENSION Active Condition [facility] visit for: services physical Inactive Condition [facility] Diagnosis: ICD-10-CM R06.00 Dyspnea, unspecified Active Diagnosis [facility] Diagnosis: ICD-10-CM Z77.29 Contact with and exposure to other hazardous substances Active Diagnosis [facility] Diagnosis: ICD-10-CM F43.10 Post-traumatic stress disorder, unspecified Active Diagnosis [facility] Medications Combined list of outpatient medications from Department of Defense and Veterans Affairs facilities.Medications provided include 1) outpatient medications from the last 15 months, and 2) patient-reported medications. Medication Details Route Status Patient Instructions Prescription Expires Prescription Number Last Dispense Date Ordering Provider Order Date Order Qty Source AMPHETAMINE /DEXTROAMPH ETAMINE 10MG TAB TAKE ONE TABLET BY MOUTH AT NOON ORAL ACTIVE MAYNOR,Micheal AHIDA [address] [facility] AMPHETAMINE /DEXTROAMPH ETAMINE RESIN COMPLEX 25MG CAP,SA TAKE 1 CAPSULE BY MOUTH EVERY MORNING ORAL ACTIVE MAYNOR,Z AHIDA [address] [facility] busPIRone 7.5 mg oral tablet 60 EA, 0 Refill(s ), TAKE 1 TABLET BY MOUTH TWICE DAILY, 0 total refill(s ), Soft Stop Ordered 2022 8320R-9 32D [facility] CHOLECALCIF DEVIN 50MCG (2,000UNIT) TAB TAKE ONE TABLET BY MOUTH ONCE A DAY ORAL ACTIVE MAYNOR,Micheal AHIDA [address] [facility] clonazePAM 0.5 mg oral tablet 30 EA, 0 Refill(s ), TAKE 1 TABLET BY MOUTH ONCE DAILY NEEDED FOR 30 DAYS, 0 total refill(s ), Soft Stop Ordered 2022 8320R-9 32D [facility] dextroamphe tamine-amph etamine 10 mg oral tablet 30 EA, 0 Refill(s ), TAKE 1 TABLET BY MOUTH ONCE DAILY, 0 total refill(s ), Soft Stop Ordered 2022 8320R-9 32D [facility] dextroamphe tamine-amph etamine 20 mg oral capsule, extended release 30 EA, 0 Refill(s ), TAKE 1 CAPSULE BY MOUTH ONCE DAILY IN THE MORNING, 0 total refill(s ), Soft Stop Ordered 2022 8320R-9 32D [facility] ERGOCALCIFE ROL 1,250MCG (50,000UNIT ) CAP TAKE ONE CAPSULE BY MOUTH EVERY WEEK FOR VITAMIN D DEFICIEN CY ORAL ACTIVE 06/28/2025 [id number] MAYNOR,Z AHIDA [address] [facility] lamoTRIgine 25 mg oral tablet 60 EA, 0 Refill(s ), TAKE 2 TABLETS BY MOUTH ONCE DAILY, 0 total refill(s ), Soft Stop Ordered 2022 8320R-9 32D [facility] modafinil 200 mg oral tablet 45 EA, 0 Refill(s ), TAKE 1 TABLET BY MOUTH IN THE MORNING AND TAKE 1/2 OF TABLET AT 2 PM, 0 total refill(s ), Soft Stop Ordered 2022 8320R-9 32D [facility] Allergies, Adverse Reactions, Alerts Combined list of allergies from Department of Defense and Veterans Affairs facilities. It does not include entries that were removed or entered in error. Substance Category Reaction Severity Reaction type Status Date Reported Comments Source No Known Allergies Drug allergy (disorder) active 04/04/2008 [facility] Immunizations Combined list of available immunizations from the Department of Defense and Veterans Affairs facilities. Immunization Series Date Given Administered By Site Reaction Lot Number CVX Code Drug Technician Helper Instrument Status Comments Source INFLUENZA, UNSPECIFIED FORMULATION 2023 88 complet ed HISTORICA L INFORMATI ON - FROM PATIENT'S RECALL, [facility] INFLUENZA, UNSPECIFIED FORMULATION 2022 88 complet ed HISTORICA L INFORMATI ON - FROM PATIENT'S RECALL, [facility] influenza, injectable, quadrivalent- pf 2021 [id number] 150 GlaxoSmithKli ne complet ed influenza , injectabl e, quadrival ent-pf 09/14/22 Given Ambulat ory Pharmac y influenza, injectable, quadrivalent- pf 2021 [id number] 150 GlaxoSmithKli ne complet ed influenza , injectabl e, quadrival ent-pf 09/14/22 Given Ambulat ory Pharmac y Influenza, injectable, quadrivalent, preservative free 0 2021 [id number] 150 SmithKline (SKB) complet ed Influenza , injectabl e, quadrival ent, preservat sierra free DoD influenza, injectable, quadrivalent- pf 2020 [id number] 150 GlaxoSmithKli ne complet ed influenza , injectabl e, quadrival ent-pf 09/14/21 Given Ambulat ory Pharmac y influenza, injectable, quadrivalent- pf 2020 [id number] 150 GlaxoSmithKli ne complet ed influenza , injectabl e, quadrival ent-pf 09/14/21 Given Ambulat ory Pharmac y Influenza, injectable, quadrivalent, preservative free 0 2020 [id number] 150 [facility] (SKB) complet ed Influenza , injectabl e, quadrival ent, preservat sierra free DoD COVID Vaccine Pfizer 2020 TRANSCR IBED 208 PFIZER complet ed COVID Vaccine Pfizer 08/15/21 Given Ambulat ory Pharmac y COVID Vaccine Pfizer 2020 TRANSCR IBED 208 PFIZER complet ed COVID Vaccine Pfizer 08/15/21 Given Ambulat ory Pharmac y SARS-COV-2 (COVID-19) vaccine, mRNA, spike protein, LNP, preservative free, 30 mcg/0.3mL dose 2 2020 208 Pfizer, Inc (PFR) complet ed SARS-COV- 2 (COVID-19 ) vaccine, mRNA, spike protein, LNP, preservat sierra free, 30 mcg/0.3mL dose DoD COVID Vaccine Pfizer 2020 TRANSCR IBED 208 PFIZER complet ed COVID Vaccine Pfizer 07/25/21 Given Ambulat ory Pharmac y COVID-19 (PFIZER), MRNA, LNP-S, PF, FABIAN-SUCROSE, 30 MCG/0.3 ML (AGES 12+ YEARS) 2020 309 complet ed HISTORICA L INFORMATI ON - FROM PATIENT'S WRITTEN RECORD, [facility] SARS-COV-2 (COVID-19) vaccine, mRNA, spike protein, LNP, preservative free, 30 mcg/0.3mL dose 1 2020 208 Pfizer, Inc (PFR) complet ed SARS-COV- 2 (COVID-19 ) vaccine, mRNA, spike protein, LNP, preservat sierra free, 30 mcg/0.3mL dose DoD influenza, injectable, quadrivalent- pf 2019 [id number] 150 Seqirus complet ed influenza , injectabl e, quadrival ent-pf 09/22/20 Given Ambulat ory Pharmac y influenza, injectable, quadrivalent- pf 2019 [id number] 082 150 Se[employer] complet ed influenza , injectabl e, quadrival ent-pf 09/22/20 Given Ambulat ory Pharmac y Influenza, injectable, quadrivalent, preservative free 0 2019 [id number] 082 150 Seqirus (SEQ) complet ed Influenza , injectabl e, quadrival ent, preservat sierra free DoD influenza, injectable, quadrivalent- pf 2018 [id number] 594 150 Se[employer] complet ed influenza , injectabl e, quadrival ent-pf 09/24/19 Given Ambulat ory Pharmac y influenza, injectable, quadrivalent- pf 2018 [id number] 594 150 [employer] complet ed influenza , injectabl e, quadrival ent-pf 09/24/19 Given Ambulat ory Pharmac y Influenza, injectable, quadrivalent, preservative free 0 2018 [id number] 594 150 Se[employer]irus (SEQ) complet ed Influenza , injectabl e, quadrival ent, preservat sierra free DoD influenza, injectable, quadrivalent- pf 2017 [id number] 150 Se[employer]irus complet ed influenza , injectabl e, quadrival ent-pf 08/21/18 Given Ambulat ory Pharmac y influenza, injectable, quadrivalent- pf 2017 [id number] 150 Se[employer]irus complet ed influenza , injectabl e, quadrival ent-pf 08/21/18 Given Ambulat ory Pharmac y Influenza, injectable, quadrivalent, preservative free 0 2017 [id number] 150 Seqirus (SEQ) comple t ed Influenza , injectabl e, quadrival ent, preservat sierra free DoD measles/mumps /rubella virus vaccine 2017 [id number] 03 Merck & Company Inc complet ed measles/m umps/rube lla virus vaccine 01/09/18 Given Ambulat ory Pharmac y measles/mumps /rubella virus vaccine 2017 [id number] 03 Merck & Company Inc complet ed measles/m umps/rube lla virus vaccine 01/09/18 Given Ambulat ory Pharmac y measles, mumps and rubella virus vaccine 2 2017 [id number] 03 Merck (MSD) complet ed measles, mumps and rubella virus vaccine DoD influenza, injectable, quadrivalent 2016 [id number] 158 GlaxoSmithKli ne complet ed influenza , injectabl e, quadrival ent 09/12/17 Given Ambulat ory Pharmac y influenza, injectable, quadrivalent 2016 [id number] 158 GlaxoSmithKli ne complet ed influenza , injectabl e, quadrival ent 09/12/17 Given Ambulat ory Pharmac y influenza, injectable, quadrivalent, contains preservative 0 2016 [id number] 158 SmithKline (SKB) complet ed influenza , injectabl e, quadrival ent, contains preservat sierra DoD hepatitis B vaccine, unspecified formulation 0 2016 45 () Not Given hepatitis B vaccine, unspecifi ed formulati on DoD influenza, injectable, quadrivalent 2015 zzRig ht Arm [id number] 158 GlaxoSmithKli ne complet ed influenza , injectabl e, quadrival ent 09/01/16 Given Ambulat ory Pharmac y influenza, injectable, quadrivalent 2015 [id number] 158 GlaxoSmithKli ne complet ed influenza , injectabl e, quadrival ent 09/01/16 Given Ambulat ory Pharmac y influenza, injectable, quadrivalent, contains preservative 1 2015 MARY DEO E [id number] 158 SmithKline (SKB) complet ed influenza , injectabl e, quadrival ent, contains preservat sierra DoD tuberculin purified protein derivative 2015 [id number] 96 sanofi pasteur complet ed tuberculi n purified protein derivativ e 06/14/16 Given Ambulat ory Pharmac y varicella virus vaccine 2015 [id number] 21 Merck & Company Inc complet ed varicella virus vaccine 11/17/15 Given Ambulat ory Pharmac y tuberculin purified protein derivative 2015 [id number] 96 sanofi pasteur complet ed tuberculi n purified protein derivativ e 11/17/15 Given Ambulat ory Pharmac y varicella virus vaccine 2015 [id number] 21 Merck & Company Inc complet ed varicella virus vaccine 11/17/15 Given Ambulat ory Pharmac y varicella virus vaccine 1 2015 [id number] 21 Merck (MSD) complet ed varicella virus vaccine DoD varicella virus vaccine 2014 [id number] 21 Merck & Company Inc complet ed varicella virus vaccine 10/13/15 Given Ambulat ory Pharmac y tuberculin purified protein derivative 2014 [id number] 96 sanofi pasteur complet ed tuberculi n purified protein derivativ e 10/13/15 Given Ambulat ory Pharmac y varicella virus vaccine 2014 [id number] 21 Merck & Company Inc complet ed varicella virus vaccine 10/13/15 Given Ambulat ory Pharmac y varicella virus vaccine 1 2014 [id number] 21 Merck (MSD) complet ed varicella virus vaccine DoD influenza, seasonal, injectable-pf 2014 [id number] 140 [employer] complet ed influenza , seasonal, injectabl e-pf 07/28/15 Given Ambulat ory Pharmac y influenza, seasonal, injectable-pf 2014 [id number] 140 [employer] complet ed influenza , seasonal, injectabl e-pf 07/28/15 Given Ambulat ory Pharmac y Influenza, seasonal, injectable, preservative free 1 2014 [id number] 140 [employer] ([facility]) complet ed Influenza , seasonal, injectabl e, preservat sierra free DoD influenza, seasonal, injectable-pf 2011 [id number] 140 [employer] complet ed influenza , seasonal, injectabl e-pf 08/29/12 Given Ambulat ory Pharmac y tetanus, diphtheria, acellular pertu is 2011 [id number] 115 sanofi pasteur complet ed tetanus, diphtheri a, acellular pertussis 08/29/12 Given Ambulat ory Pharmac y tetanus, diphtheria, acellular pertu is 2011 [id number] 115 sanofi pasteur complet ed tetanus, diphtheri a, acellular pertussis 08/29/12 Given Ambulat ory Pharmac y influenza, seasonal, injectable-pf 2011 [id number] 140 [employer] complet ed influenza , seasonal, injectabl e-pf 08/29/12 Given Ambulat ory Pharmac y tetanus toxoid, reduced diphtheria toxoid, and acellular pertu is vaccine, adsorbed 1 2011 [id number] 115 Sanofi Pasteur ([facility]) complet ed tetanus toxoid, reduced diphtheri a toxoid, and acellular pertussis vaccine, adsorbed DoD Influenza, seasonal, injectable, preservative free 1 2011 [id number] 140 [employer] ([facility]) complet ed Influenza , seasonal, injectabl e, preservat sierra free DoD influenza, seasonal, injectable-pf 2010 [id number] 140 sanofi pasteur complet ed influenza , seasonal, injectabl e-pf 08/31/11 Given Ambulat ory Pharmac y influenza, seasonal, injectable-pf 2010 [id number] 140 sanofi pasteur complet ed influenza , seasonal, injectabl e-pf 08/31/11 Given Ambulat ory Pharmac y Influenza, seasonal, injectable, preservative free 1 2010 [id number] 140 Sanofi Pasteur ([facility]) complet ed Influenza , seasonal, injectabl e, preservat sierra free DoD influenza virus vaccine,split 2010 [id number] 15 [employer] complet ed influenza virus vaccine,s plit 12/07/10 Given Ambulat ory Pharmac y influenza virus vaccine,split 2010 [id number] 15 [employer] complet ed influenza virus vaccine,s plit 12/07/10 Given Ambulat ory Pharmac y influenza virus vaccine, split virus (incl. purified surface antigen)-reti red CODE 1 2010 [id number] 15 [facility] [employer] ([facility]) complet ed influenza virus vaccine, split virus (incl. purified surface antigen)- retired CODE DoD influenza virus vaccine,split 2008 [id number] 15 [employer] complet ed influenza virus vaccine,s plit 07/28/09 Given Ambulat ory Pharmac y influenza virus vaccine,split 2008 [id number] 1A 15 [employer] complet ed influenza virus vaccine,s plit 07/28/09 Given Ambulat ory Pharmac y influenza virus vaccine, split virus (incl. purified surface antigen)-reti red CODE 1 2008 [id number] 15 CS [employer] ([facility]) complet ed influenza virus vaccine, split virus (incl. purified surface antigen)- retired CODE [facility] tuberculin purified protein derivative 2008 [id number] 96 sanofi pasteur complet ed tuberculi n purified protein derivativ e 01/23/09 Given Ambulat ory Pharmac y influenza virus vaccine,split 2007 [id number] 7A 15 Unknown complet ed influenza virus vaccine,s plit 09/09/08 Given Ambulat ory Pharmac y influenza virus vaccine,split 2007 [id number] 7A 15 Unknown complet ed influenza virus vaccine,s plit 09/09/08 Given Ambulat ory Pharmac y influenza virus vaccine, split virus (incl. purified surface antigen)-reti red CODE 1 2007 [id number] 7A 15 Unknown (UNK) complet ed influenza virus vaccine, split virus (incl. purified surface antigen)- retired CODE DoD anthrax vaccine 2007 UNK 24 DHAVAL complet ed anthrax vaccine 08/02/08 Given Ambulat ory Pharmac y anthrax vaccine 2007 UNK 24 [employer] complet ed anthrax vaccine 08/02/08 Given Ambulat ory Pharmac y anthrax vaccine 6 2007 UNK 24 [employer] (MIL) complet ed anthrax vaccine DoD typhoid Vi capsular polysaccharid e vac 2007 [id number] 101 sanofi pasteur complet ed typhoid Vi capsular polysacch aride vac 01/04/08 Given Ambulat ory Pharmac y anthrax vaccine 2007 UNK 24 [employer] complet ed anthrax vaccine 01/04/08 Given Ambulat ory Pharmac y meningococcal polysaccharid e (MPSV4) 2007 [id number] 32 sanofi pasteur complet ed meningoco ccal polysacch aride (MPSV4) 01/04/08 Given Ambulat ory Pharmac y influenza virus vaccine,split 2007 UNK 15 sanofi pasteur complet ed influenza virus vaccine,s plit 01/04/08 Given Ambulat ory Pharmac y anthrax vaccine 2007 UNK 24 [employer] complet ed anthrax vaccine 01/04/08 Given Ambulat ory Pharmac y tuberculin purified protein derivative 2007 [id number] [facility] complet ed tuberculi n purified protein derivativ e 01/04/08 Given Ambulat ory Pharmac y typhoid Vi capsular polysaccharid e vac 2007 [id number] 101 sanofi pasteur complet ed typhoid Vi capsular polysacch aride vac 01/04/08 Given Ambulat ory Pharmac y influenza virus vaccine,split 2007 UNK 15 sanofi pasteur complet ed influenza virus vaccine,s plit 01/04/08 Given Ambulat ory Pharmac y meningococcal polysaccharid e (MPSV4) 2007 [id number] 32 sanofi pasteur complet ed meningoco ccal polysacch aride (MPSV4) 01/04/08 Given Ambulat ory Pharmac y influenza virus vaccine, split virus (incl. purified surface antigen)-reti red CODE 1 2007 UNK 15 Sanofi Pasteur ([facility]) complet ed influenza virus vaccine, split virus (incl. purified surface antigen)- retired CODE DoD anthrax vaccine 5 2007 UNK 24 [facility] [employer] [facility] ([facility]) complet ed anthrax vaccine DoD meningococcal polysaccharid e vaccine (MPSV4) 1 2007 [id number] 32 Sanofi Pasteur ([facility]) complet ed meningoco ccal polysacch aride vaccine (MPSV4) DoD typhoid Vi capsular polysaccharid e vaccine 1 2007 [id number] 101 Sanofi Pasteur ([facility]) complet ed typhoid Vi capsular polysacch aride vaccine DoD hepatitis B adult vaccine 2006 [id number] 0CA 43 GlaxoSmithKli ne complet ed hepatitis B adult vaccine 11/15/06 Given Ambulat ory Pharmac y hepatitis B adult vaccine 2006 [id number] 0CA 43 GlaxoSmithKli ne complet ed hepatitis B adult vaccine 11/15/06 Given Ambulat ory Pharmac y hepatitis B vaccine, adult dosage 3 2006 [id number] 0CA 43 [employer]Kline (SKB) complet ed hepatitis B vaccine, adult dosage DoD typhoid Vi capsular polysaccharid e vac 2005 [id number] 101 sanofi pasteur complet ed typhoid Vi capsular polysacch aride vac 11/15/05 Given Ambulat ory Pharmac y yellow fever vaccine 2005 [id number] 37 sanofi pasteur complet ed yellow fever vaccine 11/15/05 Given Ambulat ory Pharmac y influenza virus vaccine,split 2005 [id number] 15 sanofi pasteur complet ed influenza virus vaccine,s plit 11/15/05 Given Ambulat ory Pharmac y typhoid Vi capsular polysaccharid e vac 2005 [id number] 101 sanofi pasteur complet ed typhoid Vi capsular polysacch aride vac 11/15/05 Given Ambulat ory Pharmac y influenza virus vaccine,split 2005 [id number] 15 sanofi pasteur complet ed influenza virus vaccine,s plit 11/15/05 Given Ambulat ory Pharmac y yellow fever vaccine 2005 [id number] 37 sanofi pasteur complet ed yellow fever vaccine 11/15/05 Given Ambulat ory Pharmac y influenza virus vaccine, split virus (incl. purified surface antigen)-reti red CODE 1 2005 [id number] 15 Sanofi Pasteur ([facility]) complet ed influenza virus vaccine, split virus (incl. purified surface antigen)- retired CODE DoD yellow fever vaccine 1 2005 [id number] 37 Sanofi Pasteur ([facility]) complet ed yellow fever vaccine DoD typhoid Vi capsular polysaccharid e vaccine 1 2005 [id number] 101 Sanofi Pasteur ([facility]) complet ed typhoid Vi capsular polysacch aride vaccine DoD anthrax vaccine 2002 UNK 24 [employer] complet ed anthrax vaccine 08/16/03 Given Ambulat ory Pharmac y anthrax vaccine 2002 UNK 24 [employer] complet ed anthrax vaccine 08/16/03 Given Ambulat ory Pharmac y anthrax vaccine 4 2002 UNK 24 [employer] [place] ([facility]) complet ed anthrax vaccine DoD anthrax vaccine 2002 [id number] 24 Unknown complet ed anthrax vaccine 03/16/03 Given Ambulat ory Pharmac y anthrax vaccine 2002 [id number] 24 Unknown complet ed anthrax vaccine 03/16/03 Given Ambulat ory Pharmac y anthrax vaccine 3 2002 [id number] 24 Unknown (UNK) comple t ed anthrax vaccine DoD anthrax vaccine 2002 [id number] 24 Unknown complet ed anthrax vaccine 02/24/03 Given Ambulat ory Pharmac y anthrax vaccine 2 2002 [id number] 24 Unknown (UNK) comple t ed anthrax vaccine DoD anthrax vaccine 2002 [id number] 24 Unknown complet ed anthrax vaccine 02/03/03 Given Ambulat ory Pharmac y vaccinia (smallpox) vaccine 2002 [id number] 75 Unknown complet ed vaccinia (smallpox ) vaccine 02/03/03 Given Ambulat ory Pharmac y hepatitis B adult vaccine 2002 UNK 43 GlaxoSmithKli ne complet ed hepatitis B adult vaccine 02/03/03 Given Ambulat ory Pharmac y hepatitis B adult vaccine 2002 UNK 43 GlaxoSmithKli ne complet ed hepatitis B adult vaccine 02/03/03 Given Ambulat ory Pharmac y vaccinia (smallpox) vaccine 2002 [id number] 75 Unknown complet ed vaccinia (smallpox ) vaccine 02/03/03 Given Ambulat ory Pharmac y anthrax vaccine 2002 [id number] 24 Unknown complet ed anthrax vaccine 02/03/03 Given Ambulat ory Pharmac y anthrax vaccine 1 2002 [id number] 24 Unknown (UNK) comple t ed anthrax vaccine DoD hepatitis B vaccine, adult dosage 2 2002 UNK 43 [employer] (SKB) complet ed hepatitis B vaccine, adult dosage DoD vaccinia (smallpox) vaccine 0 2002 [id number] 75 Unknown (UNK) comple t ed vaccinia (smallpox ) vaccine DoD typhoid Vi capsular polysaccharid e vac 2002 UNK 101 sanofi pasteur complet ed typhoid Vi capsular polysacch aride vac 01/16/03 Given Ambulat ory Pharmac y influenza virus vaccine,split 2002 UNK 15 sanofi pasteur complet ed influenza virus vaccine,s plit 01/16/03 Given Ambulat ory Pharmac y tetanus-dipht h toxoids (Td) adult/adol 2002 [id number] 09 sanofi pasteur complet ed tetanus-d iphth toxoids (Td) adult/ado l 01/16/03 Given Ambulat ory Pharmac y hepatitis A adult vaccine 2002 [id number] 6 52 GlaxoSmithKli ne complet ed hepatitis A adult vaccine 01/16/03 Given Ambulat ory Pharmac y hepatitis A adult vaccine 2002 [id number] 6 52 GlaxoSmithKli ne complet ed hepatitis A adult vaccine 01/16/03 Given Ambulat ory Pharmac y tetanus-dipht h toxoids (Td) adult/adol 2002 [id number] 09 sanofi pasteur complet ed tetanus-d iphth toxoids (Td) adult/ado l 01/16/03 Given Ambulat ory Pharmac y typhoid Vi capsular polysaccharid e vac 2002 UNK 101 sanofi pasteur complet ed typhoid Vi capsular polysacch aride vac 01/16/03 Given Ambulat ory Pharmac y influenza virus vaccine,split 2002 UNK 15 sanofi pasteur complet ed influenza virus vaccine,s plit 01/16/03 Given Ambulat ory Pharmac y tetanus and diphtheria toxoids, adsorbed, preservative free, for adult use (2 Lf of tetanus toxoid and 2 Lf of diphtheria toxoid) 0 2002 [id number] 09 Sanofi Pasteur ([facility]) complet ed tetanus and diphtheri a toxoids, adsorbed, preservat sierra free, for adult use (2 Lf of tetanus toxoid and 2 Lf of diphtheri a toxoid) DoD influenza virus vaccine, split virus (incl. purified surface antigen)-reti red CODE 0 2002 UNK 15 Sanofi Pasteur ([facility]) complet ed influenza virus vaccine, split virus (incl. purified surface antigen)- retired CODE DoD hepatitis A vaccine, adult dosage 1 2002 [id number] 52 [employer] (SKB) complet ed hepatitis A vaccine, adult dosage DoD typhoid Vi capsular polysaccharid e vaccine 1 2002 UNK 101 Sanofi Pasteur ([facility]) complet ed typhoid Vi capsular polysacch aride vaccine DoD hepatitis A adult vaccine 2000 UNK 52 GlaxoSmithKli ne complet ed hepatitis A adult vaccine 04/15/01 Given Ambulat ory Pharmac y hepatitis B adult vaccine 2000 [id number] 43 Unknown complet ed hepatitis B adult vaccine 04/15/01 Given Ambulat ory Pharmac y meningococcal polysaccharid e (MPSV4) 2000 UNK 32 sanofi pasteur complet ed meningoco ccal polysacch aride (MPSV4) 04/15/01 Given Ambulat ory Pharmac y poliovirus vaccine, inactivated 2000 UNK 10 sanofi pasteur complet ed polioviru s vaccine, inactivat ed 04/15/01 Given Ambulat ory Pharmac y measles/mumps /rubella virus vaccine 2000 UNK 03 Merck & Company Inc complet ed measles/m umps/rube lla virus vaccine 04/15/01 Given Ambulat ory Pharmac y poliovirus vaccine, inactivated 2000 UNK 10 sanofi pasteur complet ed polioviru s vaccine, inactivat ed 04/15/01 Given Ambulat ory Pharmac y hepatitis A adult vaccine 2000 UNK 52 GlaxoSmithKli ne complet ed hepatitis A adult vaccine 04/15/01 Given Ambulat ory Pharmac y measles/mumps /rubella virus vaccine 2000 UNK 03 Merck [employer] Inc complet ed measles/m umps/rube lla virus vaccine 04/15/01 Given Ambulat ory Pharmac y measles, mumps and rubella virus vaccine 0 2000 UNK 03 Merck (MSD) complet ed measles, mumps and rubella virus vaccine DoD poliovirus vaccine, inactivated 0 2000 UNK 10 Sanofi Pasteur (PMC) complet ed polioviru s vaccine, inactivat ed DoD meningococcal polysaccharid e vaccine (MPSV4) 0 2000 UNK 32 Sanofi Pasteur (PMC) complet ed meningoco ccal polysacch aride vaccine (MPSV4) DoD hepatitis B vaccine, adult dosage 1 2000 [id number] Unknown (UNK) complet ed hepatitis B vaccine, adult dosage DoD hepatitis A vaccine, adult dosage 1 2000 UNK 52 SmithKline (SKB) complet ed hepatitis A vaccine, adult dosage DoD Results Combined list of recent chemistry, hematology and other laboratory results from [employer] and [facility] [employer], ranging from 15 months to all on record, depending upon the facility. Order Name Results Value Reference Range Date Interpretation Specimen Comments Source URINALYS IS (STL-PB) COLOR OF URINE Yellow 03/29 Specimen Type: URINE No comment entered. Ordering Provider: BRANDI MCGUIRE Report Released Date/Time: March 29, 2025 02:38 PM Reporting Lab: [facility] [id number] Performing Lab: [facility] [id number] [facility] URINALYS IS (STL-PB) BILIRUBIN. TOTAL [PRESENCE] IN URINE BY TEST STRIP Negative mg/dL 03/29 Specimen Type: URINE No comment entered. Ordering Provider: BRANDI MCGUIRE Report Released Date/Time: March 29, 2025 02:38 PM Reporting Lab: [facility] [place] [address] Performing Lab: [facility] DIV[facility] URINALYS IS (STL-PB) PH OF URINE BY TEST STRIP 6.0 5.0 - 8.0 03/29 Specimen Type: URINE No comment entered. Ordering Provider: BRANDI MCGUIRE Report Released Date/Time: March 29, 2025 02:38 PM Reporting Lab: [facility] [place] [address] Performing Lab: [facility] DIVISION URINALYS IS (STL-PB) APPEARANCE OF URINE Clear 03/29 Specimen Type: URINE No comment entered. Ordering Provider: BRANDI MCGUIRE Report Released Date/Time: March 29, 2025 02:38 PM Reporting Lab: [facility] [place] [address] Performing Lab: [facility] DIVISION URINALYS IS (STL-PB) NITRITE [PRESENCE] IN URINE BY TEST STRIP Negative mg/dL 03/29 Specimen Type: URINE No comment entered. Ordering Provider: BRANDI MCGUIRE Report Released Date/Time: March 29, 2025 02:38 PM Reporting Lab: [facility] [place] [address] Performing Lab: [facility] DIVISION URINALYS IS (STL-PB) GLUCOSE [MASS/VOLU ME] IN URINE BY TEST STRIP 500 mg/dL 03/29 H Specimen Type: URINE No comment entered. Ordering Provider: BRANDI MCGUIRE Report Released Date/Time: March 29, 2025 02:38 PM Reporting Lab: [facility] [place] [address] Performing Lab: [facility] DIVISION URINALYS IS (STL-PB) PROTEIN [MASS/VOLU ME] IN URINE BY TEST STRIP 10 mg/dL 03/29 H Specimen Type: URINE No comment entered. Ordering Provider: BRANDI MCGUIRE Report Released Date/Time: March 29, 2025 02:38 PM Reporting Lab: [facility] [place] [address] Performing Lab: [facility] DIVISION URINALYS IS (STL-PB) URN.UROBIL INOGEN Normalmg /dL 03/29 Specimen Type: URINE No comment entered. Ordering Provider: BRANDI MCGUIRE Report Released Date/Time: March 29, 2025 02:38 PM Reporting Lab: [facility] [place] [address] Performing Lab: [facility] DIVISION URINALYS IS (STL-PB) HEMOGLOBIN [MASS/VOLU ME] IN URINE BY TEST STRIP Negative mg/dL 03/29 Specimen Type: URINE No comment entered. Ordering Provider: BRANDI MCGUIRE Report Released Date/Time: March 29, 2025 02:38 PM Reporting Lab: [facility] [place] [address] Performing Lab: [facility] DIVISION URINALYS IS (STL-PB) KETONES [MASS/VOLU ME] IN URINE BY TEST STRIP Negative mg/dL 03/29 Specimen Type: URINE No comment entered. Ordering Provider: BRANDI MCGUIRE Report Released Date/Time: March 29, 2025 02:38 PM Reporting Lab: [facility] [place] [address] Performing Lab: [facility] [address] URINALYS IS (STL-PB) URN.LEUK.E ST. Negative mg/dL 03/29 Specimen Type: URINE No comment entered. Ordering Provider: BRANDI MCGUIRE Report Released Date/Time: March 29, 2025 02:38 PM Reporting Lab: [place] [address] Performing Lab: [facility] [address] URINALYS IS (STL-PB) SPECIFIC GRAVITY OF URINE 1.018 03/29 Specimen Type: URINE No comment entered. Ordering Provider: BRANDI MCGUIRE Report Released Date/Time: March 29, 2025 02:38 PM Reporting Lab: [place] [address] Performing Lab: [address] URINE DRUG SCREEN (STL) ETHANOL [MASS/VOLU ME] IN URINE <10.0mg/ dL 0 - 9 03/29 Specimen Type: URINE Comment: The cut-off value for Fentanyl was laboratory developed and its performance characteris tics confirmed by the [facility] laboratory thru method comparison with reference laboratory and medication chart review. The laboratory is regulated under CLIA as qualified to perform high-comple xity testing. Fentanyl is used for clinical purposes in conjunction with other laboratory tests. Ordering Provider: BRANDI MCGUIRE Report Released Date/Time: March 29, 2025 02:38 PM Reporting Lab: [facility] [place] [address] Performing Lab: [facility] URINE DRUG SCREEN (STL) AMPHETAMIN E [PRESENCE] IN URINE BY SCREEN METHOD Negative ng/mL 03/29 Specimen Type: URINE Comment: The cut-off value for Fentanyl was laboratory developed and its performance characteris tics confirmed by the [facility] laboratory thru method comparison with reference laboratory and medication chart review. The laboratory is regulated under CLIA as qualified to perform high-comple xity testing. Fentanyl is used for clinical purposes in conjunction with other laboratory tests. Ordering Provider: BRANDI MCGUIRE Report Released Date/Time: March 29, 2025 02:38 PM Reporting Lab: [facility] [place] [address] Performing Lab: [facility] URINE DRUG SCREEN (STL) BENZOYLECG ONINE [PRESENCE] IN URINE Negative ng/mL 03/29 Specimen Type: URINE Comment: The cut-off value for Fentanyl was laboratory developed and its performance characteris tics confirmed by the [facility] laboratory thru method comparison with reference laboratory and medication chart review. The laboratory is regulated under CLIA as qualified to perform high-comple xity testing. Fentanyl is used for clinical purposes in conjunction with other laboratory tests. Ordering Provider: BRANDI MCGUIRE Report Released Date/Time: March 29, 2025 02:38 PM Reporting Lab: [facility] [place] [address] Performing Lab: [facility] URINE DRUG SCREEN (STL) BENZODIAZE PINES [PRESENCE] IN URINE BY SCREEN METHOD Negative ng/mL 03/29 Specimen Type: URINE Comment: The cut-off value for Fentanyl was laboratory developed and its performance characteris tics confirmed by the [facility] laboratory thru method comparison with reference laboratory and medication chart review. The laboratory is regulated under CLIA as qualified to perform high-comple xity testing. Fentanyl is used for clinical purposes in conjunction with other laboratory tests. Ordering Provider: BRANDI MCGUIRE Report Released Date/Time: March 29, 2025 02:38 PM Reporting Lab: [facility] [place] [address] Performing Lab: [facility] URINE DRUG SCREEN (STL) CANNABINOI DS [PRESENCE] IN URINE BY SCREEN METHOD Negative ng/mL 03/29 Specimen Type: URINE Comment: The cut-off value for Fentanyl was laboratory developed and its performance characteris tics confirmed by the [facility] laboratory thru method comparison with reference laboratory and medication chart review. The laboratory is regulated under CLIA as qualified to perform high-comple xity testing. Fentanyl is used for clinical purposes in conjunction with other laboratory tests. Ordering Provider: BRANDI MCGUIRE Report Released Date/Time: March 29, 2025 02:38 PM Reporting Lab: [facility] [place] [address] Performing Lab: [facility] URINE DRUG SCREEN (STL) METHADONE [PRESENCE] IN URINE Negative ng/mL 03/29 Specimen Type: URINE Comment: The cut-off value for Fentanyl was laboratory developed and its performance characteris tics confirmed by the [facility] laboratory thru method comparison with reference laboratory and medication chart review. The laboratory is regulated under CLIA as qualified to perform high-comple xity testing. Fentanyl is used for clinical purposes in conjunction with other laboratory tests. Ordering Provider: BRANDI MCGUIRE Report Released Date/Time: March 29, 2025 02:38 PM Reporting Lab: [facility] [place] [address] Performing Lab: [facility] [id number] [place] [address] URINE DRUG SCREEN (STL) OPIATES [PRESENCE] IN URINE BY SCREEN METHOD Negative ng/mL 03/29 Specimen Type: URINE Comment: The cut-off value for Fentanyl was laboratory developed and its performance characteris tics confirmed by the [facility] laboratory thru method comparison with reference laboratory and medication chart review. The laboratory is regulated under CLIA as qualified to perform high-comple xity testing. Fentanyl is used for clinical purposes in conjunction with other laboratory tests. Ordering Provider: BRANDI MCGUIRE Report Released Date/Time: March 29, 2025 02:38 PM Reporting Lab: [facility] [place] [address] Performing Lab: [facility] URINE DRUG SCREEN (STL) CREATININE [MASS/VOLU ME] IN URINE 69.5 mg/dL 63.0 - 166.0 03/29 Specimen Type: URINE Comment: The cut-off value for Fentanyl was laboratory developed and its performance characteris tics confirmed by the [facility] laboratory thru method comparison with reference laboratory and medication chart review. The laboratory is regulated under CLIA as qualified to perform high-comple xity testing. Fentanyl is used for clinical purposes in conjunction with other laboratory tests. Ordering Provider: BRANDI MCGUIRE Report Released Date/Time: March 29, 2025 02:38 PM Reporting Lab: [facility] [place] [address] Performing Lab: [facility] URINE DRUG SCREEN (STL) OXYCODONE CUTOFF [MASS/VOLU ME] IN URINE FOR SCREEN METHOD Negative ng/mL 03/29 Specimen Type: URINE Comment: The cut-off value for Fentanyl was laboratory developed and its performance characteris tics confirmed by the [facility] laboratory thru method comparison with reference laboratory and medication chart review. The laboratory is regulated under CLIA as qualified to perform high-comple xity testing. Fentanyl is used for clinical purposes in conjunction with other laboratory tests. Ordering Provider: BRANDI MCGUIRE Report Released Date/Time: March 29, 2025 02:38 PM Reporting Lab: [facility] [place] [phone] Performing Lab: [facility] [place] [phone] [place] [address] URINE DRUG SCREEN (STL) BUPRENORPH INE [PRESENCE] IN URINE Negative ng/mL 03/29 Specimen Type: URINE Comment: The cut-off value for Fentanyl was laboratory developed and its performance characteris tics confirmed by the [facility] laboratory thru method comparison with reference laboratory and medication chart review. The laboratory is regulated under CLIA as qualified to perform high-comple xity testing. Fentanyl is used for clinical purposes in conjunction with other laboratory tests. Ordering Provider: BRANDI MCGUIRE Report Released Date/Time: March 29, 2025 02:38 PM Reporting Lab: [facility] [place] [address] Performing Lab: [facility] URINE DRUG SCREEN (STL) FENTANYL [PRESENCE] IN URINE Negative ng/mL 03/29 Specimen Type: URINE Comment: The cut-off value for Fentanyl was laboratory developed and its performance characteris tics confirmed by the [facility] laboratory thru method comparison with reference laboratory and medication chart review. The laboratory is regulated under CLIA as qualified to perform high-comple xity testing. Fentanyl is used for clinical purposes in conjunction with other laboratory tests. Ordering Provider: BRANDI MCGUIRE Report Released Date/Time: March 29, 2025 02:38 PM Reporting Lab: [facility] [place] [address] Performing Lab: [facility] [place] [phone] [place] [address] COMPREHE NSIVE METABOLI C PANEL CREATININE [MASS/VOLU ME] IN SERUM OR PLASMA 1.31 mg/dL 0.70 - 1.30 03/29 H Specimen Type: PLASMA Comment: No hemolysis noted. Ordering Provider: BRANDI MCGUIRE Report Released Date/Time: March 29, 2025 02:38 PM Reporting Lab: [facility] [place] [address] Performing Lab: [facility] DIVISION COMPREHE NSIVE METABOLI C PANEL UREA NITROGEN [MASS/VOLU ME] IN SERUM OR PLASMA 11.4 mg/dL 9.0 - 25.0 03/29 Specimen Type: PLASMA Comment: No hemolysis noted. Ordering Provider: BRANDI MCGUIRE Report Released Date/Time: March 29, 2025 02:38 PM Reporting Lab: [facility] [place] [address] Performing Lab: [facility] DIVISION COMPREHE NSIVE METABOLI C PANEL GLUCOSE [MASS/VOLU ME] IN SERUM OR PLASMA 67 mg/dL 72 - 99 03/29 L Specimen Type: PLASMA Comment: No hemolysis noted. Ordering Provider: BRANDI MCGUIRE Report Released Date/Time: March 29, 2025 02:38 PM Reporting Lab: [facility] [place] [address] Performing Lab: [facility] DIVISION COMPREHE NSIVE METABOLI C PANEL SODIUM [MOLES/VOL UME] IN SERUM OR PLASMA 138 meq/L 136 - 145 03/29 Specimen Type: PLASMA Comment: No hemolysis noted. Ordering Provider: BRANDI MCGIURE Report Released Date/Time: March 29, 2025 02:38 PM Reporting Lab: [facility] [place] [address] Performing Lab: [facility] [id number] DIVISION COMPREHE NSIVE METABOLI C PANEL POTASSIUM [MOLES/VOL UME] IN SERUM OR PLASMA 4.0 meq/L 3.5 - 5.0 03/29 Specimen Type: PLASMA Comment: No hemolysis noted. Ordering Provider: BRANDI MCGUIRE Report Released Date/Time: March 29, 2025 02:38 PM Reporting Lab: [facility] [place] [address] Performing Lab: [facility] DIVISION COMPREHE NSIVE METABOLI C PANEL CHLORIDE [MOLES/VOL UME] IN SERUM OR PLASMA 104 meq/L 98 - 107 03/29 Specimen Type: PLASMA Comment: No hemolysis noted. Ordering Provider: BRANDI MCGUIRE Report Released Date/Time: March 29, 2025 02:38 PM Reporting Lab: [facility] [place] [address] Performing Lab: [facility] DIVISION COMPREHE NSIVE METABOLI C PANEL CARBON DIOXIDE, TOTAL [MOLES/VOL UME] IN SERUM OR PLASMA 25 meq/L 22 - 31 03/29 Specimen Type: PLASMA Comment: No hemolysis noted. Ordering Provider: BRANDI MCGUIRE Report Released Date/Time: March 29, 2025 02:38 PM Reporting Lab: [facility] [place] [address] Performing Lab: [facility] DIVISION COMPREHE NSIVE METABOLI C PANEL CALCIUM [MASS/VOLU ME] IN SERUM OR PLASMA 9.5 mg/dL 8.4 - 10.4 03/29 Specimen Type: PLASMA Comment: No hemolysis noted. Ordering Provider: BRANDI MCGUIRE Report Released Date/Time: March 29, 2025 02:38 PM Reporting Lab: [facility] [place] [address] Performing Lab: [facility] DIVISION COMPREHE NSIVE METABOLI C PANEL PROTEIN [MASS/VOLU ME] IN SERUM OR PLASMA 7.7 g/dL 6.0 - 8.6 03/29 Specimen Type: PLASMA Comment: No hemolysis noted. Ordering Provider: BRANDI MCGUIRE Report Released Date/Time: March 29, 2025 02:38 PM Reporting Lab: [facility] [place] [address] Performing Lab: [facility] DIVISION COMPREHE NSIVE METABOLI C PANEL ALBUMIN [MASS/VOLU ME] IN SERUM OR PLASMA 4.1 g/dL 3.4 - 5.0 03/29 Specimen Type: PLASMA Comment: No hemolysis noted. Ordering Provider: BRANDI MCGUIRE Report Released Date/Time: March 29, 2025 02:38 PM Reporting Lab: [facility] [place] [address] Performing Lab: [facility] DIVISION COMPREHE NSIVE METABOLI C PANEL BILIRUBIN. TOTAL [MASS/VOLU ME] IN SERUM OR PLASMA 2.3 mg/dL 0.2 - 1.2 03/29 H Specimen Type: PLASMA Comment: No hemolysis noted. Ordering Provider: BRANDI MCGUIRE Report Released Date/Time: March 29, 2025 02:38 PM Reporting Lab: [facility] [place] [address] Performing Lab: [facility] DIVISION COMPREHE NSIVE METABOLI C PANEL ALKALINE PHOSPHATAS E [ENZYMATIC ACTIVITY/V OLUME] IN SERUM OR PLASMA 94 U/L 40 - 150 03/29 Specimen Type: PLASMA Comment: No hemolysis noted. Ordering Provider: BRANDI MCGUIRE Report Released Date/Time: March 29, 2025 02:38 PM Reporting Lab: [facility] [place] [address] Performing Lab: [facility] [address] DIVISION COMPREHE NSIVE METABOLI C PANEL ASPARTATE AMINOTRANS FERASE [ENZYMATIC ACTIVITY/V OLUME] IN SERUM OR PLASMA 26 U/L 5 - 34 03/29 Specimen Type: PLASMA Comment: No hemolysis noted. Ordering Provider: BRANDI MCGUIRE Report Released Date/Time: March 29, 2025 02:38 PM Reporting Lab: [facility] [place] [address] Performing Lab: [facility] [address] DIVISION COMPREHE NSIVE METABOLI C PANEL ALANINE AMINOTRANS FERASE [ENZYMATIC ACTIVITY/V OLUME] IN SERUM OR PLASMA 32 U/L 8 - 40 03/29 Specimen Type: PLASMA Comment: No hemolysis noted. Ordering Provider: BRANDI MCGUIRE Report Released Date/Time: March 29, 2025 02:38 PM Reporting Lab: [facility] [place] [address] Performing Lab: [facility] DIVISION COMPREHE NSIVE METABOLI C PANEL GLOMERULAR FILTRATION RATE/1.73 SQ M.PREDICTE D [VOLUME RATE/AREA] IN SERUM, PLASMA OR BLOOD BY CREATININE -BASED FORMULA (CKD-EPI 2020) 69.26 60 03/29 Specimen Type: PLASMA Comment: No hemolysis noted. Ordering Provider: BRANDI MCGUIRE Report Released Date/Time: March 29, 2025 02:38 PM Reporting Lab: [facility] [place] [phone] Performing Lab: [facility] LIPID PANEL (STL) CHOLESTERO L [MASS/VOLU ME] IN SERUM OR PLASMA 152 mg/dL 0 - 200 03/29 Specimen Type: PLASMA Comment: No hemolysis noted. Ordering Provider: BRANDI MCGUIRE Report Released Date/Time: March 29, 2025 02:38 PM Reporting Lab: [facility] [place] [address] Performing Lab: [facility] LIPID PANEL (STL) TRIGLYCERI DE [MASS/VOLU ME] IN SERUM OR PLASMA 48 mg/dL 0 - 150 03/29 Specimen Type: PLASMA Comment: No hemolysis noted. Ordering Provider: BRANDI MCGUIER Report Released Date/Time: March 29, 2025 02:38 PM Reporting Lab: [facility] [place] [address] Performing Lab: [facility] LIPID PANEL (STL) CHOLESTERO L IN LDL [MASS/VOLU ME] IN SERUM OR PLASMA BY CALCSHERITAO N 82 mg/dL 03/29 Specimen Type: PLASMA Comment: No hemolysis noted. Ordering Provider: BRANDI MCGUIRE Report Released Date/Time: March 29, 2025 02:38 PM Reporting Lab: [facility] [place] [address] Performing Lab: [facility] LIPID PANEL (STL) CHOLESTERO L IN HDL [MASS/VOLU ME] IN SERUM OR PLASMA 60 mg/dL 40 03/29 Specimen Type: PLASMA Comment: No hemolysis noted. Ordering Provider: BRANDI MCGUIRE Report Released Date/Time: March 29, 2025 02:38 PM Reporting Lab: [facility] [place] [address] Performing Lab: [facility] DIVISION CBC LEUKOCYTES [#/VOLUME] IN BLOOD BY AUTOMATED COUNT 8.4 10*3/uL 3.6 - 11.2 03/29 Specimen Type: BLOOD Comment: SCAN OF SLIDE AGREES WITH AUTOMATED DIFF. Ordering Provider: BRANDI MCGUIRE Report Released Date/Time: March 29, 2025 02:38 PM Reporting Lab: [facility] [place] [address] Performing Lab: [facility] DIVISION CBC ERYTHROCYT ES [#/VOLUME] IN BLOOD BY AUTOMATED COUNT 5.32 10*6/uL 4.10 - 5.70 03/29 Specimen Type: BLOOD Comment: SCAN OF SLIDE AGREES WITH AUTOMATED DIFF. Ordering Provider: BRANDI MCGUIRE Report Released Date/Time: March 29, 2025 02:38 PM Reporting Lab: [facility] [place] [address] Performing Lab: [facility] DIVISION CBC HEMOGLOBIN [MASS/VOLU ME] IN BLOOD 15.5 g/dL 13.1 - 16.8 03/29 Specimen Type: BLOOD Comment: SCAN OF SLIDE AGREES WITH AUTOMATED DIFF. Ordering Provider: BRANDI MCGUIRE Report Released Date/Time: March 29, 2025 02:38 PM Reporting Lab: [facility] [place] [address] Performing Lab: [facility] DIVISION CBC HEMATOCRIT [VOLUME FRACTION] OF BLOOD 45.6 38.2 - 48.4 03/29 Specimen Type: BLOOD Comment: SCAN OF SLIDE AGREES WITH AUTOMATED DIFF. Ordering Provider: BRANDI MCGUIRE Report Released Date/Time: March 29, 2025 02:38 PM Reporting Lab: [facility] [place] [address] Performing Lab: [facility] DIVISION CBC MCV [ENTITIC VOLUME] BY AUTOMATED COUNT 85.7 fL 80.0 - 100.0 03/29 Specimen Type: BLOOD Comment: SCAN OF SLIDE AGREES WITH AUTOMATED DIFF. Ordering Provider: BRANDI MCGUIRE Report Released Date/Time: March 29, 2025 02:38 PM Reporting Lab: [facility] [place] [address] Performing Lab: [facility] DIVISION CBC MCH [ENTITIC MASS] BY AUTOMATED COUNT 29.1 pg 27.0 - 34.0 03/29 Specimen Type: BLOOD Comment: SCAN OF SLIDE AGREES WITH AUTOMATED DIFF. Ordering Provider: BRANDI MCGUIRE Report Released Date/Time: March 29, 2025 02:38 PM Reporting Lab: [facility] [place] [address] Performing Lab: [facility] DIVISION CBC MCHC [MASS/VOLU ME] BY AUTOMATED COUNT 34.0 g/dL 33.0 - 36.0 03/29 Specimen Type: BLOOD Comment: SCAN OF SLIDE AGREES WITH AUTOMATED DIFF. Ordering Provider: BRANDI MCGUIRE Report Released Date/Time: March 29, 2025 02:38 PM Reporting Lab: [facility] [place] [address] Performing Lab: [facility] [address] CBC PLATELETS [#/VOLUME] IN BLOOD BY AUTOMATED COUNT 219 10*3/uL 150 - 400 03/29 Specimen Type: BLOOD Comment: SCAN OF SLIDE AGREES WITH AUTOMATED DIFF. Ordering Provider: BRANDI MCGUIRE Report Released Date/Time: March 29, 2025 02:38 PM Reporting Lab: [facility] [place] [address] Performing Lab: [facility] CBC PLATELET MEAN VOLUME [ENTITIC VOLUME] IN BLOOD BY AUTOMATED COUNT 11.1 fL 7.5 - 11.2 03/29 Specimen Type: BLOOD Comment: SCAN OF SLIDE AGREES WITH AUTOMATED DIFF. Ordering Provider: BRANDI MCGUIRE Report Released Date/Time: March 29, 2025 02:38 PM Reporting Lab: [facility] [place] [address] Performing Lab: [facility] CBC PLATELET ADEQUACY [PRESENCE] IN BLOOD BY LIGHT MICROSCOPY ADEQUATE 03/29 Specimen Type: BLOOD Comment: SCAN OF SLIDE AGREES WITH AUTOMATED DIFF. Ordering Provider: BRANDI MCGUIRE Report Released Date/Time: March 29, 2025 02:38 PM Reporting Lab: [facility] [place] [address] Performing Lab: [facility] DIVISION CBC ERYTHROCYT E DISTRIBUTI ON WIDTH [RATIO] BY AUTOMATED COUNT 13.9 11.8 - 15.1 03/29 Specimen Type: BLOOD Comment: SCAN OF SLIDE AGREES WITH AUTOMATED DIFF. Ordering Provider: BRANDI MCGUIRE Report Released Date/Time: March 29, 2025 02:38 PM Reporting Lab: [facility] [place] [address] Performing Lab: [facility] [address] [facility] CBC LYMPHOCYTE S/100 LEUKOCYTES IN BLOOD BY AUTOMATED COUNT 11 03/29 Specimen Type: BLOOD Comment: SCAN OF SLIDE AGREES WITH AUTOMATED DIFF. Ordering Provider: BRANDI MCGUIRE Report Released Date/Time: March 29, 2025 02:38 PM Reporting Lab: [facility] [address] Performing Lab: [facility] [phone] [place] [address] DIVISION CBC MONOCYTES/ 100 LEUKOCYTES IN BLOOD BY AUTOMATED COUNT 12 03/29 Specimen Type: BLOOD Comment: SCAN OF SLIDE AGREES WITH AUTOMATED DIFF. Ordering Provider: BRANDI MCGUIRE Report Released Date/Time: March 29, 2025 02:38 PM Reporting Lab: [facility] [address] Performing Lab: [facility] [address] DIVISION CBC NEUTROPHIL S/100 LEUKOCYTES IN BLOOD BY AUTOMATED COUNT 73 03/29 Specimen Type: BLOOD Comment: SCAN OF SLIDE AGREES WITH AUTOMATED DIFF. Ordering Provider: BRANDI MCGUIRE Report Released Date/Time: March 29, 2025 02:38 PM Reporting Lab: [facility] [address] Performing Lab: [facility] [address] [place] [address] DIVISION CBC EOSINOPHIL S/100 LEUKOCYTES IN BLOOD BY AUTOMATED COUNT 3 03/29 Specimen Type: BLOOD Comment: SCAN OF SLIDE AGREES WITH AUTOMATED DIFF. Ordering Provider: BRANDI MCGUIRE Report Released Date/Time: March 29, 2025 02:38 PM Reporting Lab: [facility] [address] Performing Lab: [facility] DIVISION CBC BASOPHILS/ 100 LEUKOCYTES IN BLOOD BY AUTOMATED COUNT 1 03/29 Specimen Type: BLOOD Comment: SCAN OF SLIDE AGREES WITH AUTOMATED DIFF. Ordering Provider: BRANDI MCGUIRE Report Released Date/Time: March 29, 2025 02:38 PM Reporting Lab: [facility] [place] [address] Performing Lab: [facility] DIVISION CBC LYMPHOCYTE S [#/VOLUME] IN BLOOD BY AUTOMATED COUNT 0.94 10*3/uL 0.77 - 4.50 03/29 Specimen Type: BLOOD Comment: SCAN OF SLIDE AGREES WITH AUTOMATED DIFF. Ordering Provider: BRANDI MCGUIRE Report Released Date/Time: March 29, 2025 02:38 PM Reporting Lab: [facility] [place] [address] Performing Lab: [facility] DIVISION CBC MONOCYTES [#/VOLUME] IN BLOOD BY AUTOMATED COUNT 1.02 10*3/uL 0.19 - 0.80 03/29 H Specimen Type: BLOOD Comment: SCAN OF SLIDE AGREES WITH AUTOMATED DIFF. Ordering Provider: BRANDI MCGUIRE Report Released Date/Time: March 29, 2025 02:38 PM Reporting Lab: [facility] [place] [address] Performing Lab: [facility] DIVISION CBC NEUTROPHIL S [#/VOLUME] IN BLOOD BY AUTOMATED COUNT 6.08 10*3/uL 2.10 - 8.00 03/29 Specimen Type: BLOOD Comment: SCAN OF SLIDE AGREES WITH AUTOMATED DIFF. Ordering Provider: BRANDI MCGUIRE Report Released Date/Time: March 29, 2025 02:38 PM Reporting Lab: [facility] [place] [address] Performing Lab: [facility] DIVISION CBC EOSINOPHIL S [#/VOLUME] IN BLOOD BY AUTOMATED COUNT 0.25 10*3/uL 0.00 - 0.60 03/29 Specimen Type: BLOOD Comment: SCAN OF SLIDE AGREES WITH AUTOMATED DIFF. Ordering Provider: BRANDI MCGUIRE Report Released Date/Time: March 29, 2025 02:38 PM Reporting Lab: [facility] [place] [address] Performing Lab: [facility] CBC BASOPHILS [#/VOLUME] IN BLOOD BY AUTOMATED COUNT 0.05 10*3/uL 0.00 - 0.20 03/29 Specimen Type: BLOOD Comment: SCAN OF SLIDE AGREES WITH AUTOMATED DIFF. Ordering Provider: BRANDI MCGUIRE Report Released Date/Time: March 29, 2025 02:38 PM Reporting Lab: [facility] [place] [address] Performing Lab: [facility] DIVISION CBC PLATELETS RETICULATE D/100 PLATELETS IN BLOOD BY AUTOMATED COUNT 4.3 1.0 - 7.0 03/29 Specimen Type: BLOOD Comment: SCAN OF SLIDE AGREES WITH AUTOMATED DIFF. Ordering Provider: BRANDI MCGUIRE Report Released Date/Time: March 29, 2025 02:38 PM Reporting Lab: [facility] [place] [address] Performing Lab: [facility] DIVISION CBC NUCLEATED ERYTHROCYT ES/100 LEUKOCYTES [RATIO] IN BLOOD BY AUTOMATED COUNT 0 03/29 Specimen Type: BLOOD Comment: SCAN OF SLIDE AGREES WITH AUTOMATED DIFF. Ordering Provider: BRANDI MCGUIRE Report Released Date/Time: March 29, 2025 02:38 PM Reporting Lab: [facility] [place] [address] Performing Lab: [facility] DIVISION CBC MANUAL DIFFERENTI AL COMMENT [INTERPRET ATION] IN BLOOD NARRATIVE YES 03/29 Specimen Type: BLOOD Comment: SCAN OF SLIDE AGREES WITH AUTOMATED DIFF. Ordering Provider: BRANDI MCGUIRE Report Released Date/Time: March 29, 2025 02:38 PM Reporting Lab: [facility] [place] [address] Performing Lab: [facility] DIVISION CBC MANUAL DIFFERENTI AL PERFORMED [PRESENCE] IN BLOOD YES 03/29 Specimen Type: BLOOD Comment: SCAN OF SLIDE AGREES WITH AUTOMATED DIFF. Ordering Provider: BRANDI MCGUIRE Report Released Date/Time: March 29, 2025 02:38 PM Reporting Lab: [facility] [place] [address] Performing Lab: [facility] DIVISION HGA1C HEMOGLOBIN A1C/HEMOGL OBIN.TOTAL IN BLOOD 5.1 4.0 - 6.0 03/29 Specimen Type: BLOOD No comment entered. Ordering Provider: BRANDI MCGUIRE Report Released Date/Time: March 29, 2025 02:38 PM Reporting Lab: [facility] [place] [address] Performing Lab: [facility] DIVISION HEP C Ab HCV Ab (STL) HEPATITIS C VIRUS AB [PRESENCE] IN SERUM Nonreact sierra 03/29 Specimen Type: SERUM No comment entered. Ordering Provider: BRANDI MCGUIRE Report Released Date/Time: March 29, 2025 02:38 PM Reporting Lab: [facility] [address] [facility] [address] Performing Lab: [place] [address] [facility] [phone] [place] [address] HEP B CORE IgM AB. (STL-MA- [facility]) HEPATITIS B VIRUS CORE IGM AB [PRESENCE] IN SERUM OR PLASMA BY IMMUNOASSA Y Nonreact sierra 03/29 Specimen Type: SERUM No comment entered. Ordering Provider: BRANDI MCGUIRE Report Released Date/Time: March 29, 2025 02:38 PM Reporting Lab: [place] [address] [facility] [address] Performing Lab: [place] [address] [address] [facility] [phone] [place] [address] FREE T4 (STL) THYROXINE (T4) FREE [MASS/VOLU ME] IN SERUM OR PLASMA 1.30 ng/mL 0.70 - 1.48 03/29 Specimen Type: PLASMA No comment entered. Ordering Provider: BRANDI MCGUIRE Report Released Date/Time: March 29, 2025 02:38 PM Reporting Lab: [facility] [address] Performing Lab: [facility] [address] [place] [address] DIVISION TSH W/ REFLEX FT4 (STL) THYROTROPI N [UNITS/VOL UME] IN SERUM OR PLASMA 1.250 u[IU]/mL 0.470 - 5.000 03/29 Specimen Type: PLASMA No comment entered. Ordering Provider: BRANDI MCGUIRE Report Released Date/Time: March 29, 2025 02:38 PM Reporting Lab: [facility] [address] Performing Lab: [facility] [phone] [place] [address] Infectio us Disease HIV-1/O/2 NON REACTIVE 04/12 Interpretiv e Data: INTERPRETAT ION: This method is a screening procedure for the detection of HIV p24 Antigen and Antibodies to HIV-1, including Group O, and/or HIV-2. NON-REACTIV E: HIV-1 antigen and HIV-1 / HIV-2 antibodies were not detected. No laboratory evidence of HIV infection. A negative test result does not exclude the possibility of exposure to or infection with HIV. HIV antibodies and/or p24 antigen may be undetectabl e in some stages of the infection and in some clinical conditions. If acute HIV infection is suspected, consider submitting another specimen to a reference laboratory for HIV-1 RNA. SCREEN REACTIVE - CONFIRMATIO N TO FOLLOW: Possible presence of HIV-1antibo dies, HIV-2 antibodies and/or HIV-1 p24 antigen. Specimen will reflex to the confirmatio n testing that fulfills the Center for Disease Control and Prevention' s HIV diagnostic algorithm. Refer to [facility] Lab Guide for additional information : [email or web address]/ [email or web address] [email or web address] x Testing performed by Sebastian reinoso ce. [employer] Miscella neous Sendouts Repository Sample Received (04/12/23 9:30 AM) 04/12 N [employer] [facility] Vital Signs Combined list of inpatient and outpatient Vital Signs from Department of Defense and Veterans Affairs, ranging from 12 months to all on record, depending upon the facility. Vital Sign Value Date Comments Source SYSTOLIC BLOOD PRESSURE 110 03/29/2025 14:19:[address] [facility] DIASTOLIC BLOOD PRESSURE 73 03/29/2025 14:19:[address] [facility] PULSE OXIMETRY 99 03/29/2025 14:19:28 [facility] WEIGHT 186.4 03/29/2025 14:19:28 [facility] BMI 27 kg/m2 03/29/2025 14:19:28 [facility] PAIN 0 03/29/2025 14:19:28 [facility] TEMPERATURE 98.2 03/29/2025 14:19:[address] [facility] PULSE 83 03/29/2025 14:19:28 [facility] RESPIRATION 18 03/29/2025 14:19:[address] [facility] SYSTOLIC BLOOD PRESSURE 129 01/16/2025 14:41:[address] [facility] DIASTOLIC BLOOD PRESSURE 83 01/16/2025 14:41:[address] [facility] PULSE OXIMETRY 99 01/16/2025 14:41:59 [facility] WEIGHT 185.8 01/16/2025 14:41:59 [facility] BMI 27 kg/m2 01/16/2025 14:41:59 [facility] HEIGHT 70 01/16/2025 14:41:59 [facility] TEMPERATURE 97.7 01/16/2025 14:41:[address] [facility] PULSE 92 01/16/2025 14:41:59 [facility] SYSTOLIC BLOOD PRESSURE 109 06/13/2024 14:12:[address] [facility] DIASTOLIC BLOOD PRESSURE 72 06/13/2024 14:12:[address] [facility] PULSE OXIMETRY 97 06/13/2024 14:12:37 [facility] WEIGHT 192 06/13/2024 14:12:37 [facility] BMI 28 kg/m2 06/13/2024 14:12:37 [facility] PAIN 0 06/13/2024 14:12:37 [facility] HEIGHT 70 06/13/2024 14:12:37 [facility] TEMPERATURE 98.7 06/13/2024 14:12:[address] [facility] PULSE 78 06/13/2024 14:12:37 [facility] RESPIRATION 20 06/13/2024 14:12:[address] [facility] Encounters Combined list of: 1) Encounters from Department of Veterans Affairs facilities going backup to the last 18 months, not all VA inpatient encounters are included; 2) Encounters from the Department of Defense facilities going backup to 280 months. Location Location Details Encounter Type Encounter Number Reason For Visit Attending Provider ADM Date DC Date Status Disposition Source [facility] OUTPATIENT [id number] IMR, DA 7349, TBI BRITTANY GAMEZ O 01/04 [facility] [place] [place] [facility]) OUTPATIENT [id number] PRE-DEP YMENT / EN BN TIBURCIO MOHR 01/04 [facility] w[facility] Limitations [facility] [place] [place], [place]([facility]) TELE CONSULT [id number] CELLULI MEAGAN MCGINNIS 03/27 [facility] [place]([employer] [facility]) [facility] [place] [facility]) OUTPATIENT [id number] DRESSIN G CHANGE Y, CHINEDU H 03/28 Released w/o Limitations [facility] [place] [employer] [facility]) [facility] [place] [facility] OUTPATIENT [id number] YHN, CHINEDU H 03/29 Released w/o Limitations [facility] [place] [facility]) [facility] [place] [facility]) OUTPATIENT [id number] YHN, CHINEDU H 03/30 Released w/o Limitations [facility] [place] [employer] [facility]) [facility] OUTPATIENT [id number] 12/30 Released w/o Limitations [facility](Opt ometry Clinic) OUTPATIENT [id number] Notes Entered by: EMY CAPELLAN 22 Oct 2016 1353 ------- ------- ------- ------- -- LASER EYE EXAM ANIYA MARROQUIN 12/14 /2016 Released w/o Limitations [employer](O ptometr y Clinic) [employer] Merlin KING ([facility] [facility] [address] [facility]) TELE CONSULT [id number] Notes Entered by: MANUELA RAZA 27 Feb 2023 1219 ------- ------- ------- ------- -- Conditi on Update MANUELA RAZA 02/27 [facility] Merlin KING ([facility] [facility]) [facility] Outpatient Encounter [id number] 01/04 [facility] OFFICE O/P NEW MOD 45 MIN [id number] Diagnos is: ICD-10- CM F43.10 Post-tr aumatic stress disorde r, unspeci fied ROGER MCGUIRE 06/13 [facility] Outpatient Encounter [id number] 06/13 [facility] Outpatient Encounter [id number] 06/14 [facility] Outpatient Encounter [id number] PARUL MATOS 06/14 [facility] Outpatient Encounter [id number] PARUL MATOS 06/14 [facility] Outpatient Encounter [id number] 06/17 [facility] Outpatient Encounter [id number] 08/09 [facility] Outpatient Encounter [id number] 01/13 [facility] OFFICE O/P EST HI 40 MIN [id number] Diagnos is: ICD-10- CM Z77.29 Contact with and exposur e to other hazardo us substan irma MORENOEJOVANI HIA I 01/16 [facility] Outpatient Encounter [id number] 01/16 [facility] Outpatient Encounter [id number] 01/17 [facility] Outpatient Encounter [id number] RICHIE COHN 02/06 [facility] Outpatient Encounter [id number] 02/16 [facility] Outpatient Encounter [id number] 02/19 [facility] Outpatient Encounter [id number] 03/20 [facility] Outpatient Encounter [id number] RICHIE COHN 03/22 [facility] OFFICE O/P EST MOD 30 MIN [id number] Diagnos is: ICD-10- CM R06.00 Dyspnea , unspeci fied MAYNORROGER HIDA 03/29 [facility] Encounter [id number] 03/29 [facility] Out[facility] Encounter [id number] GLENN LAZARO 03/31 [facility] Procedures Combined list of: 1) Procedures from Department of [facility] Affairs facilities going back up to thelast 18 months, not all [place] non-surgical procedures are included; 2) All procedures from the Department of Defense facilities. Procedure Procedure Type Code Date Perfomer Comments Sourc e No data available for this section Ambulato ry Pharmacy VIS FUNCT SCREEN,AUTOMAT/MONA I-AUTOMAT BILAT QUANT DETERM VISUAL ACUITY,OCULAR ALIGN,COLOR VISION,PSEUDOISOCH ROMAT PLATES,& FIELD VIS (MAY INC ALL/SOME SCRN DETERM FOR CONTRAST SENSITIV,VIS UND GLARE) 6 [facility] AUDIOMETRIC TESTING OF GROUPS 8 [facility] ANTHRAX VACCINE, FOR SUBCUTANEOUS OR INTRAMUSCULAR USE 4 [facility] EDUCATIONAL SUPPLIES, SUCH BOOKS, TAPES, AND PAMPHLETS, FOR THE PATIENT'S EDUCATION AT COST TO PHYSICIAN OR OTHER QUALIFIED HEALTH SALES COORDINATOR 4 DoD SKIN TEST; TUBERCULOSIS, INTRADERMAL 4 [facility] EDUCATIONAL SUPPLIES, SUCH BOOKS, TAPES, AND PAMPHLETS, FOR THE PATIENT'S EDUCATION AT COST TO PHYSICIAN OR OTHER QUALIFIED HEALTH SALES COORDINATOR 3 [facility] MEASLES AND RUBELLA VIRUS VACCINE, LIVE, FOR SUBCUTANEOUS USE 3 [facility] ANTHRAX VACCINE, FOR SUBCUTANEOUS OR INTRAMUSCULAR USE 3 [facility] EDUCATIONAL SUPPLIES, SUCH BOOKS, TAPES, AND PAMPHLETS, FOR THE PATIENT'S EDUCATION AT COST TO PHYSICIAN OR OTHER QUALIFIED HEALTH SALES COORDINATOR 3 [facility] EDUCATIONAL SUPPLIES, SUCH BOOKS, TAPES, AND PAMPHLETS, FOR THE PATIENT'S EDUCATION AT COST TO PHYSICIAN OR OTHER QUALIFIED HEALTH SALES COORDINATOR 3 [facility] COLLECTION OF VENOUS BLOOD BY VENIPUNCTURE 1 [facility] MEASLES AND RUBELLA VIRUS VACCINE, LIVE, FOR SUBCUTANEOUS USE 1 DoD SKIN TEST; TUBERCULOSIS, INTRADERMAL 9 [facility] PURE TONE AUDIOMETRY (THRESHOLD); AIR ONLY 9 [facility] INDIVIDUAL PSYCHOTHERAPY, INSIGHT ORIENTED, BEHAVIOR MODIFYING AND/OR SUPPORTIVE, IN AN OFFICE OR OUTPATIENT FACILITY, APPROXIMATELY 20 TO 30 MINUTES [id number] WITH THE PATIENT 9 [facility] Visual Function Screening Visual Function Screening [id number] ANIYA MARROQUIN [facility] Social Work Individual Outpatient Counseling 20-30 Minutes Social Work Individual Outpatient Counseling 20-30 Minutes [id number] АЛЕКСАНДР DENSON [facility] Audiometry Group Testing Audiometry Group Testing [id number] TIBURCIO MOHR [facility] Social History Combined list of available smoking, tobacco, and other social history from Department of Defense and Veterans Affairs facilities. Social History Type Response Date Comment Sour e Tobacco smoking status [facility] NEVER USED 06/13/2024 [facility] This section is an empty social history section. [facility] Assessment and Plan Combined list of future care activities from Department of Defense and Veterans Affairs facilities (e.g., assessment and plan notes, appointments, orders, and referrals). Additional future care activities may be listed in the Plan of Care section. Result Assessment and Plan Date Source Assessment and Plan No data available for this section 04/05/2025 Ambulatory Pharmacy Plan of Care List of future care activities from Department of Veterans Affairs facilities. Additional future care activities may be listed in the Assessment and Plan section. Date/Time Care Activity Care Activity Detail Facili ty 04/07/2025 AMBULATORY - MEDICINE AMBULATORY - MEDICI NE [facility] Functional Status Combined list of recent functional and cognitive assessments recorded at Department of Defense and Veterans Affairs ([place]).AR Functional Point Baker Measurement (FIM) Scale: 1 = Total Assistance (Subject = 0% +), 2 = Maximal Assistance (Subject = 25% +), 3 = Moderate Assistance (Subject = 50% +), 4 = Minimal Assistance (Subject = 75% +), 5 = Supervision, 6 = Modified Point Baker (Device), 7 = Complete Point Baker (Timely, Safely). Assessment Date/Time Source Assessment Type Assessment Skill Assessment Score Assessment Details No data available for this section
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
--- OUTSIDE RECORDS SUMMARY | 2025-04-05 07:23 | XMS_ITS | Encounter Summary ---
Author Name [facility] Organization [facility] Address [address] [place] [address] Care Team Providers Care Financial Officer Name Role Phone FLORENCE MCGUIRE Primary Care Provider Unavailabl e Selected Encounter This section includes the information on record at [place] for the Encounter. Date/Time Encounter Type Encounter Description Reason Pro vider Source Jan 13, 2025 12:08 PM Outpatient Encounter ADMIN PAT ACTIVTIES (MASNONCT) IHE Encounter Template Text not used by [place] Plan of Treatment: Future Appointments (+ 6 months) and Future Tests (+/- 45 days) The Plan of Treatment section includes future care activities for the patient from all [place] treatmentfacilities. This section includes future appointments and future orders which are active, pending or scheduled. Future Appointments This section includes appointments that were scheduled to occur 6 months from the date of the Encounter, up to a maximum of 20 appointments. The data comes from all [place] treatment facilities. Appointment Date/Time Appointment Type Appointme nt Facility Name Jan 16, 2025 02:30 PM AMBULATORY - MEDICINE [facility] March 29, 2025 02:00 PM [facility] April 07, 2025 01:30 PM [facility] Encounter Notes: All associated encounter notes This section contains the clinical notes associated to the Encounter. Date/Time Encounter Note(s) Provider Source Jan 13, 2025 12:08 PM ADMINISTRATIVE NOT E: LOCAL TITLE: ADMINISTRATIVE STL STANDARD TITLE: ADMINISTRATIVE NOTE DATE OF NOTE: JAN 13, 2025@12:08 ENTRY DATE: JAN 13, 2025@12:09:11 AUTHOR: BONG MAN EXP COSIGNER: URGENCY: STATUS: COMPLETED 01/13/25 Spoke with scheduled exam 01/16@1430 [facility] [place] has new address: [address] [place], [place] [address] 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
--- OUTSIDE RECORDS SUMMARY | 2025-04-05 07:23 | XMS_ITS | Encounter Summary ---
Author Organization [employer] Address [address] [place] [address] Care Team Providers Care Junior Brand Manager Name Role Phone Unavailable Primary Care Provider Unavailabl e Encounter Details Date Type Department Care Team (Late st Contact Info) Description 10/28/2017 Lab Requisition [employer] [facility] [address] [place] [address] Garo Reddy MD [address] [address] Encounter for pre-employment examination Social History Tobacco Use Types Packs/Day Years Used Date Smoking Tobacco: Never Assessed Sex and Gender Information Value Date Recorded Sex Assigned at Not on file Legal Sex Male 8:29 AM COSMETIC CHEMIST Gender Identity Not on file Sexual Orientation Not on file documented as of this encounter Plan of Treatment Not on file documented as of this encounter Procedures Procedure Name Priority Date/Time Associated Diagnosis Comments RUBEOLA IGG Routine 10/28/2017 10:50 AM COSMETIC CHEMIST Encounter for pre-employment examination RUBELLA IGG Routine 10/28/2017 10:50 AM COSMETIC CHEMIST Encounter for pre-employment examination MUMPS IGG ANTIBODY Routine 10/28/2017 10 :50 AM COSMETIC CHEMIST Encounter for pre-employment examination documented in this encounter Results * RUBELLA IGG (10/28/2017 10:50 AM COSMETIC CHEMIST) RUBELLA IGG IMMUNE Immune - Positive 10/28/2017 6:55 PM COSMETIC CHEMIST [facility] Athlete Builder [facility] Blood Collection / Unknown 10/28/2017 10:50 AM COSMETIC CHEMIST 10/28/2017 4:23 PM COSMETIC CHEMIST Narrative [facility] - 10/28/2017 6:55 PM COSMETIC CHEMIST A positive result suggests response to immunization or prior exposure to the virus. Garo Reddy MD CHEMISTRY ORDERABLES Final Result Performing Organization Address [facility]/ZIP Co de Phone Number [facility] CLIA# [id number] [address] [place] [address] * MUMPS IGG ANTIBODY (10/28/2017 10:50 AM COSMETIC CHEMIST) Pathologist [facility] MUMPS IGG AB Negative 10/29/2017 1:37 PM COSMETIC CHEMIST [facility] Comment: REFERENCE VALUE Vaccinated: Positive (>=1.1 AI) Unvaccinated: Negative (<=0.8 AI) MUMPS IGG INDEX 0.6 7 1:37 PM COSMETIC CHEMIST [facility] Comment: Test Performed by: [facility] [address] [place] [id number] Blood Collection / Unknown 10/28/2017 10:50 AM COSMETIC CHEMIST 10/28/2017 4:23 PM COSMETIC CHEMIST Garo Reddy MD CHEMISTRY ORDERABLES Final Result Performing Organization Address [facility] Co de Phone Number [facility] * RUBEOLA IGG (10/28/2017 10:50 AM COSMETIC CHEMIST) RUBEOLA IGG Positive 10/29/2017 1:37 PM COSMETIC CHEMIST [facility] Comment: Results suggest response to immunization or prior exposure to the virus. REFERENCE VALUE Vaccinated: Positive (>=1.1 AI) Unvaccinated: Negative (<=0.8 AI) RUBEOLA IGG INDEX 2.3 10/29/2017 1:37 PM COSMETIC CHEMIST [facility] Comment: Test Performed by: [facility] [address] [place] [address] Blood Collection / Unknown 10/28/2017 10:50 AM COSMETIC CHEMIST 10/28/2017 4:23 PM COSMETIC CHEMIST us Garo Reddy MD CHEMISTRY ORDERABLES Final Result [facility] documented in this encounter Visit Diagnoses Diagnosis Encounter for pre-employment examination Health examination of defined subpopulation documented in this encounter
--- NOTE | 2025-04-05 07:24 | ECG_ITS ---
Test Date: 2025-04-05 07:29:22 Measurements Intervals [place] Rate: 95 P: 49 NM: 136 QRS: 63 QRSD: 90 T: 88 QT: 362 QTc: 456 Interpretive Statements SINUS RHYTHM LEFT ATRIAL ENLARGEMENT [-0.15mV P-WAVE IN V1/V2] NONSPECIFIC T-WAVE ABNORMALITY No previous ECG available for comparison Electronically Signed On 04-05-2025 16:40:07 CDT by Willy Collins M.D.
[2025-04-05 07:49] LABS: Basophils Percent Auto 0.5 % (0.2-1.2); Eosinophils Absolute Auto 0.1 K/mm3 (0-0.3); Eosinophils Percent Auto 0.9 % (0-4.4); Hematocrit 45.5 % (42.0-52.0); Hemoglobin 15.4 g/dL (14.0-18.0); Immature Granulocyte Absolute 0.03 K/mm3 (0.00-0.031); Immature Granulocyte Percent A 0.4 % (0-0.5); Lymphocytes Absolute Auto 0.57 K/mm3 (0.9-3.2); Lymphocytes Percent Auto 7.3 % (18.3-44.2); Mean Corpuscular HGB Conc 33.8 g/dl (32-36); Mean Corpuscular Hemoglobin 28.8 pg (26-34); Mean Platelet Volume 10.7 fl (7.4-10.4); Monocytes Absolute Auto 0.6 K/mm3 (0.1-0.6); Monocytes Percent Auto 7.5 % (2.6-8.5); Neutrophils Absolute Auto 6.5 K/mm3 (1.3-6.7); Neutrophils Percent Auto 83.4 % (45.5-73.1); Platelet Count Result 230 k/mm3 (150-375); Red Blood Count 5.35 M/mm3 (4.6-6.20); Red Cell Distribution Width 13.8 % (11.5-14.5); White Blood Count 7.8 K/mm3 (4.5-10.0)
[2025-04-05 07:59] LABS: Alanine Aminotransferase 27 U/L (6-50); Alkaline Phosphatase 87 U/L (38-126); Anion Gap 7 mmol/L (4-12); Aspartate Amino Transferase 32 U/L (17-59); Bilirubin,Total 1.6 mg/dL (0.2-1.3); Blood Urea Nitrogen 11 mg/dL (9-20); Calcium 8.8 mg/dL (8.4-10.2); Carbon Dioxide 26 mmol/L (22-30); Chloride 104 mmol/L (98-107); Estimated CRCL calculation 82 ml/min; Estimated Glomerular Filt Rate > 60; Glucose 110 mg/dL (65-110); Potassium 4.5 mmol/L (3.4-5.0); Sodium 137 mmol/L (137-145)
[2025-04-05] MEDS: IPRATROPIUM 0.5 MG/ALBUTEROL SULFATE 2.5 MG AMPUL.NEB 3 ML INHALATION ×3 (08:03→21:20)
[2025-04-05 08:14] LABS: Lipase 49 U/L (23-300); Magnesium 1.8 mg/dL (1.6-2.3)
[2025-04-05 08:28] LABS: Lactic Acid Reflex 0.8 mmol/L (0.7-2.0)
[2025-04-05 08:29] LABS: INR 1.2
[2025-04-05 08:30] LABS: Partial Thromboplastin Time 34.6 Seconds (22.3-36.8)
[2025-04-05 08:32] LABS: NT Pro B Type Natriuretic Pept 822 pg/mL (19.9-100); Prothrombin Time 15.2 Seconds (11.1-14.7); Troponin I 0.018 ng/mL (0.000-0.034)
[2025-04-05 08:46] LABS: Procalcitonin 0.2 ng/mL
[2025-04-05 08:58] LABS: Influenza A QL RT-PCR Negative (Negative); Influenza B QL RT-PCR Negative (Negative); RSV RNA, RT-PCR Negative (Negative); SARS-CoV-2 RNA PCR Negative (Negative)
--- OUTSIDE RECORDS SUMMARY | 2025-04-05 09:02 | XMS_ITS | Clinical Summary ---
Author Organization [facility] Address [address] [place] [address] Care Team Providers Care Stripper Black And White Name Role Phone Unavailable Primary Care Provider Unavailabl e Source Comments [facility] Connotate,non-owned Affiliates and Associated Physician Practices is amultiple site organization consisting of ambulatory clinics and hospital sitesin [place], [place], [place] and [place]. This disclosure is being madepursuant to the Care Everywhere program and may not contain all information available regarding this patient. 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
--- OUTSIDE RECORDS SUMMARY | 2025-04-05 09:02 | XMS_ITS | Encounter Summary ---
Author Organization [employer] Address [address] [place] [address] Care Team Providers Care Powerhouse Laborer Name Role Phone Unavailable Primary Care Provider Unavailabl e Encounter Details Date Type Department Care Team (Late st Contact Info) Description 10/28/2017 Lab Requisition [employer] Laboratory Services [facility] [address] [place] [address] Garo Reddy MD [address] [id number] Encounter for pre-employment examination Social History Tobacco Use Types Packs/Day Years Used Date Smoking Tobacco: Never Assessed Sex and Gender Information Value Date Recorded Sex Assigned at Not on file Legal Sex Male 8:29 AM ANESTHESIOLOGIST/PHYSICIAN Gender Identity Not on file Sexual Orientation Not on file documented as of this encounter Plan of Treatment Not on file documented as of this encounter Procedures Procedure Name Priority Date/Time Associated Diagnosis Comments RUBEOLA IGG Routine 10/28/2017 10:50 AM ANESTHESIOLOGIST/PHYSICIAN Encounter for pre-employment examination RUBELLA IGG Routine 10/28/2017 10:50 AM ANESTHESIOLOGIST/PHYSICIAN Encounter for pre-employment examination MUMPS IGG ANTIBODY Routine 10/28/2017 10 :50 AM ANESTHESIOLOGIST/PHYSICIAN Encounter for pre-employment examination documented in this encounter Results * RUBELLA IGG (10/28/2017 10:50 AM ANESTHESIOLOGIST/PHYSICIAN) RUBELLA IGG IMMUNE Immune - Positive 10/28/2017 6:55 PM ANESTHESIOLOGIST/PHYSICIAN [facility] Blood Collection / Unknown 10/28/2017 10:50 AM ANESTHESIOLOGIST/PHYSICIAN 10/28/2017 4:23 PM ANESTHESIOLOGIST/PHYSICIAN Narrative [facility] - 10/28/2017 6:55 PM ANESTHESIOLOGIST/PHYSICIAN A positive result suggests response to immunization or prior exposure to the virus. Garo Reddy MD CHEMISTRY ORDERABLES Final Result Performing Organization Address [facility]/ZIP Co de Phone Number [facility] CLIA# [id number] [address] [place] [address] * MUMPS IGG ANTIBODY (10/28/2017 10:50 AM ANESTHESIOLOGIST/PHYSICIAN) Pathologist [facility] MUMPS IGG AB Negative 10/29/2017 1:37 PM ANESTHESIOLOGIST/PHYSICIAN [facility] Comment: REFERENCE VALUE Vaccinated: Positive (>=1.1 AI) Unvaccinated: Negative (<=0.8 AI) MUMPS IGG INDEX 0.6 7 1:37 PM ANESTHESIOLOGIST/PHYSICIAN [facility] Comment: Test Performed by: [facility] [address] [place] [id number] Blood Collection / Unknown 10/28/2017 10:50 AM ANESTHESIOLOGIST/PHYSICIAN 10/28/2017 4:23 PM ANESTHESIOLOGIST/PHYSICIAN Garo Reddy MD CHEMISTRY ORDERABLES Final Result Performing Organization Address [facility] Co de Phone Number [facility] * RUBEOLA IGG (10/28/2017 10:50 AM ANESTHESIOLOGIST/PHYSICIAN) RUBEOLA IGG Positive 10/29/2017 1:37 PM ANESTHESIOLOGIST/PHYSICIAN [facility] Comment: Results suggest response to immunization or prior exposure to the virus. REFERENCE VALUE Vaccinated: Positive (>=1.1 AI) Unvaccinated: Negative (<=0.8 AI) RUBEOLA IGG INDEX 2.3 10/29/2017 1:37 PM ANESTHESIOLOGIST/PHYSICIAN [facility] Comment: Test Performed by: [facility] [address] [place] [address] Blood Collection / Unknown 10/28/2017 10:50 AM ANESTHESIOLOGIST/PHYSICIAN 10/28/2017 4:23 PM ANESTHESIOLOGIST/PHYSICIAN us Garo Reddy MD CHEMISTRY ORDERABLES Final Result [facility] documented in this encounter Visit Diagnoses Diagnosis Encounter for pre-employment examination Health examination of defined subpopulation documented in this encounter
--- OUTSIDE RECORDS SUMMARY | 2025-04-05 09:02 | XMS_ITS | Clinical Summary ---
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
--- NOTE | 2025-04-05 09:10 | ED.GENADULT ---
HPI - General Adult General Chief complaint: Shortness of Breath/Dyspnea Stated complaint: SOB Time Seen by Provider: 04/05/25 07:44 History of Present Illness HPI narrative: Patient 44-year-old gentleman presents emergency department chief complaint of shortness of breath and cough for the last 5 days the patient reports he has had a temperature of a 100.1? at home and reports today he had some cough that was associated with blood in the phlegm. Patient states he also has been seen by his provider at the [place] and told that he had a prolonged QT and reports that he is to have a further workup by Cardiology in the near future as they were concerned that his heart may be enlarged. Related Data Allergies Allergy/AdvReac Type Severity Reaction Status Date / Time latex Allergy Hives Verified 04/05/25 14:39 Review of Systems Review of Systems: A 10 system review of systems was completed on the patient and is negative except for what is stated in the HPI. Nursing and ancillary documentation was reviewed. PMFSH Past Medical History Medical History Idiopathic hypersomnia Anxiety Depression Family History Family History Mother Diabetes mellitus Grandparent Cancer Grandparent Cancer Social History Social History Smoking status: Former smoker Tobacco type: cigars Smoking end date: 11/09/12 Additional smoking assessment comments: 2003 Alcohol intake: current Drinks per week: 1 Alcohol use details: 1 deshawn a week Substance use: unknown Do You Feel Safe in your Home?: Yes Lack of Transportation: No Lack of Food: Never True Current Housing: I Have Housing Concerned About Future Housing: No Difficulty Paying Gas/Electric Bills: No Difficulty Paying for Meds: No Currently Unemployed: No Education: Bachelor's Degree Difficulty w/ Childcare or Family Care: No Spiritual care concerns: No Exam Narrative: GENERAL: Well-appearing, well-nourished, and in no acute distress. HEAD: Normocephalic, atraumatic. EYES: PERRLA and EOMI. ENT: Nares clear, no rhinorrhea or epistaxis. Mucous membranes moist. NECK: Supple. CHEST: Clear to auscultation. No respiratory distress. HEART: Regular rate and rhythm. No murmur heard. Normal peripheral pulses. ABDOMEN: Soft, nontender, nondistended, normal active bowel sounds. EXTREMITIES: Normal range of motion. No edema. SKIN: Warm, dry, no rash. NEURO: No focal deficits. Alert and oriented x3. PSYCH: Normal mood and affect. Course Vital Signs Vital signs: Vital Signs Temperature 36.8 C 04/05/25 07:30 Pulse Rate 82 04/05/25 07:30 Respiratory Rate 34 H 04/05/25 07:30 Blood Pressure 136/90 04/05/25 07:30 Pulse Oximetry 98 04/05/25 07:30 Oxygen Delivery Room Air 04/05/25 07:30 Temperature 36.8 C 04/05/25 07:30 Pulse Rate 87 04/05/25 14:35 Respiratory Rate 22 H 04/05/25 14:35 Blood Pressure 108/81 04/05/25 13:13 Pulse Oximetry 98 04/05/25 13:13 Oxygen Delivery Room Air 04/05/25 07:48 Medical Decision Making [facility] Narrative Medical decision making narrative: Differential diagnosis includes pneumonia, pulmonary embolism, CHF EKG did show a slightly prolonged QTc of 456 Chest x-ray showed evidence of pneumonia CTA chest showed no evidence of pulmonary embolism but did show cardiomegaly and multifocal pneumonia. Patient's vital signs are currently stable patient did have a elevated BNP of 822 and troponin of 0.018 Blood cultures were obtained and the patient was started on Rocephin and doxycycline Vital Signs Vital Signs: Vital Signs Temperature 36.8 C 04/05/25 07:30 Pulse Rate 82 04/05/25 07:30 Respiratory Rate 34 H 04/05/25 07:30 Blood Pressure 136/90 04/05/25 07:30 Pulse Oximetry 98 04/05/25 07:30 Oxygen Delivery Room Air 04/05/25 07:30 Temperature 36.8 C 04/05/25 07:30 Pulse Rate 87 04/05/25 14:35 Respiratory Rate 22 H 04/05/25 14:35 Blood Pressure 108/81 04/05/25 13:13 Pulse Oximetry 98 04/05/25 13:13 Oxygen Delivery Room Air 04/05/25 07:48 Lab Data 04/05/25 07:43 04/05/25 07:43 Labs: Lab Results 04/05/25 04/05/25 Range/Units 07:43 08:07 WBC 7.8 (4.5-10.0) K/mm3 RBC 5.35 (4.6-6.20) M/mm3 Hgb 15.4 (14.0-18.0) g/dL Hct 45.5 (42.0-52.0) % MCV 85.0 (80-100) fl MCH 28.8 (26-34) pg MCHC 33.8 (32-36) g/dl RDW 13.8 (11.5-14.5) % Plt Count 230 (150-375) k/mm3 MPV 10.7 H (7.4-10.4) fl Immature Gran % (Auto) 0.4 (0-0.5) % Neut % (Auto) 83.4 H (45.5-73.1) % Lymph % (Auto) 7.3 L (18.3-44.2) % [place] % (Auto) 7.5 (2.6-8.5) % Eos % (Auto) 0.9 (0-4.4) % Baso % (Auto) 0.5 (0.2-1.2) % Lymph # (Auto) 0.57 L (0.9-3.2) K/mm3 [place] # (Auto) 0.6 (0.1-0.6) K/mm3 Eos # (Auto) 0.1 (0-0.3) K/mm3 Baso # (Auto) 0.0 (0.0-0.1) K/mm3 Abs Immat Gran (auto) 0.03 (0.00-0.031) K/mm3 Absolute Neuts (auto) 6.5 (1.3-6.7) K/mm3 Absolute Nucleated RBC 0.000 (0.0-0.012) K/mm3 Nucleated RBC % 0.0 (0.0-0.2) % PT 15.2 H (11.1-14.7) Seconds INR 1.2 APTT 34.6 (22.3-36.8) Seconds Sodium 137 (137-145) mmol/L Potassium 4.5 (3.4-5.0) mmol/L Chloride 104 (98-107) mmol/L Carbon Dioxide 26 (22-30) mmol/L Anion Gap 7 (4-12) mmol/L BUN 11 (9-20) mg/dL Creatinine 1.06 (0.7-1.3) mg/dL Estim Creat Clear Calc 82 ml/min Estimated GFR > 60 (59 - ) Glucose 110 (65-110) mg/dL Lactic Acid 0.8 (0.7-2.0) mmol/L Calcium 8.8 (8.4-10.2) mg/dL Magnesium 1.8 (1.6-2.3) mg/dL Total Bilirubin 1.6 H (0.2-1.3) mg/dL AST 32 (17-59) U/L ALT 27 (6-50) U/L Alkaline Phosphatase 87 (38-126) U/L Troponin I 0.018 (0.000-0.034) ng/mL NT-Pro-B Natriuret Pep 822 H (19.9-100) pg/mL Total Protein 8.0 (6.3-8.2) g/dL Albumin 4.0 (3.5-5.1) g/dL Lipase 49 (23-300) U/L Procalcitonin 0.2 ng/mL Influenza A (RT-PCR) Negative (Negative) Influenza B (RT-PCR) Negative (Negative) RSV (RT-PCR) Negative (Negative) SARS-CoV-2 RNA (RT-PCR) Negative (Negative) Discharge Plan Discharge Clinical Impression: Multifocal pneumonia, Prolonged QT interval Patient Disposition: Still a Patient Condition: Stable Time of Disposition: 10:08
--- NOTE | 2025-04-05 10:52 | PC.NURSE ---
per CARMEN Ayala, gave patient a cup of ice water and ordered a lunch tray.
--- NOTE | 2025-04-05 10:58 | ECG_ITS ---
Test Date: 2025-04-05 11:09:49 Measurements Intervals [place] Rate: 84 P: 54 MT: 141 QRS: 59 QRSD: 89 T: 73 QT: 393 QTc: 467 Interpretive Statements SINUS RHYTHM POSSIBLE LEFT ATRIAL ENLARGEMENT [-0.1mV P-WAVE IN V1/V2] NONSPECIFIC T-WAVE ABNORMALITY Compared to ECG 04/05/2025 07:29:22 No significant changes Electronically Signed On 04-06-2025 15:03:27 CDT by Kenan Helton M.D.
[2025-04-05] MEDS: DOXYCYCLINE 100 MG/NS 100 ML 100 MG/100 ML BAG IVPB ×2 (11:03→21:16)
[2025-04-05 11:07] LABS: Troponin I 0.021 ng/mL (0.000-0.034)
[2025-04-05 11:22] LABS: Add Urine Microscopic? YES; Appearance Urine Clear (Clear); Bacteria Urine None Seen /hpf; Bilirubin Urine Negative (Negative); Blood Urine Trace (Negative); Color Urine Yellow (Yellow); Glucose Urine UA Negative (Negative); Ketones Urine 3+ mg/dL (Negative); Leukocyte Esterase Ur Negative LEU/UL (Negative); Nitrate Urine Negative (Negative); Non Pathogenic Casts 0-2; Protein Urine 1+ mg/dL (Negative); Specific Grav Ur > 1.045 (1.001-1.035); Squamous Epithelial Cell Urine None Seen /hpf (Few); WBC Urine 0-5 /hpf (0-3)
--- NOTE | 2025-04-05 14:30 | ADMGEN ---
This patient, Connor Rios III, was admitted to [facility] IMU-[facility]. Patient/family oriented to hospital policies and general routines including ID bracelet, bed and alarms, visiting hours, pain management, procedures, bathroom and other care routines, personal items, smoking policy, room service/diet, and visiting hours. Information on how to activate the Rapid Response Team has been discussed. Patient/Family are encouraged to report perceived risks to care and to ask questions if they do not understand what they are told or what they should do.
--- NOTE | 2025-04-05 15:37 | PM.IMHP ---
H&P: HPI History of Present Illness Date/Time: 04/05/25 15:37 Chief Complaint: Shortness of breath. Narrative: 44-year-old male with its past medical history of PTSD hypersomnolence tinnitus presented to [facility] Worsening shortness of breadth. Upper extremity shortness of breath since Thursday associated with vomiting which has worsened in the last 24 was causing him to present to the ER for proper evaluation and care. Denies abdominal pain diarrhea dysuria leg tenderness full consciousness no weakness. Also reported more shortness of breath has been going on about a month ago followed up with his primary care physician who obtained a chest x-ray and he was told his heart is enlarged and echo was recommended. ER evaluation notable for respiratory 34, saturation 98% on room air. Labs notable for BNP 822, CT chest showed multifocal pneumonia. Review of Systems Review of Systems: All other systems reviewed and negative except the history above. [facility] Past Medical History Medical History Idiopathic hypersomnia Anxiety Depression Family History Family History Mother Diabetes mellitus Grandparent Cancer Grandparent Cancer Social History Social History Smoking status: Former smoker Tobacco type: cigars Smoking end date: 11/09/12 Additional smoking assessment comments: 2003 Alcohol intake: current Drinks per week: 1 Alcohol use details: 1 deshawn a week Substance use: unknown Do You Feel Safe in your Home?: Yes Lack of Transportation: No Lack of Food: Never True Current Housing: I Have Housing Concerned About Future Housing: No Difficulty Paying Gas/Electric Bills: No Difficulty Paying for Meds: No Currently Unemployed: No Education: Bachelor's Degree Difficulty w/ Childcare or Family Care: No Spiritual care concerns: No Meds Home Medications and Allergies Home Medications ?Medication ?Instructions ?Recorded ?Confirmed ?Type ibuprofen 600 mg tablet (IBU) 600 mg PO Q6H PRN pain #20 tabs 03/14/22 04/05/25 Rx dextroamphetamine-amphetamine 10 10 mg PO DAILY 1 month #30 tabs 03/21/25 04/05/25 Rx mg tablet (Adderall) dextroamphetamine-amphetamine ER 25 mg PO DAILY 1 month #30 caps 03/21/25 04/05/25 Rx 25 mg 24hr capsule,extend release (Adderall XR) Allergies Allergy/AdvReac Type Severity Reaction Status Date / Time latex Allergy Hives Verified 04/05/25 14:39 Vital Signs Vital Signs - 24 hr 04/05/25 07:30 04/05/25 07:45 04/05/25 07:46 Temperature 98.2 F Pulse Rate 82 93 Respiratory Rate 34 H 23 H Blood Pressure 136/90 132/98 H Pulse Oximetry 98 97 98 Oxygen Delivery Room Air Room Air 04/05/25 07:47 04/05/25 07:48 04/05/25 08:00 Temperature Pulse Rate 95 92 Respiratory Rate 26 H Blood Pressure 131/94 H Pulse Oximetry 98 97 Oxygen Delivery Room Air 04/05/25 08:06 04/05/25 08:14 04/05/25 08:46 Temperature Pulse Rate 90 96 93 Respiratory Rate 16 14 21 H Blood Pressure 129/81 Pulse Oximetry 97 Oxygen Delivery 04/05/25 09:00 04/05/25 09:30 04/05/25 10:07 Temperature Pulse Rate 92 92 96 Respiratory Rate 30 H 27 H 36 H Blood Pressure 123/85 121/84 126/87 Pulse Oximetry 96 96 98 Oxygen Delivery 04/05/25 10:30 04/05/25 11:00 04/05/25 13:13 Temperature Pulse Rate 87 89 90 Respiratory Rate 31 H 25 H 18 Blood Pressure 132/98 H 125/89 108/81 Pulse Oximetry 98 98 98 Oxygen Delivery 04/05/25 14:24 04/05/25 14:35 Temperature Pulse Rate 90 87 Respiratory Rate 16 22 H Blood Pressure Pulse Oximetry Oxygen Delivery Exam Narrative: General: alert and comfortable Eyes: EOMI, PERRLA ENNT External ears normal, Neck is supple, no masses, Respiratory systems: Clear to auscultation Cardiovascular S1, S2, normal rhythm, no murmur, rub, or gallop; no thrill or palpable murmurs on palpation. Gastrointestinal: soft, non-tender, and non-distended abdomen with no masses; BS present Skin: no rash, lesions, ulcerations, subcutaneous nodules or induration Musculoskeletal: no abnormality and no tenderness, normal ROM Neurologic: Alert and oriented x3, non focal Mental Status Exam: normal affect H&P: Results Labs Labs: Short CBC 04/05/25 Range/Units 07:43 WBC 7.8 (4.5-10.0) K/mm3 Hgb 15.4 (14.0-18.0) g/dL Hct 45.5 (42.0-52.0) % Plt Count 230 (150-375) k/mm3 BMP 04/05/25 07:43 Sodium 137 Potassium 4.5 Chloride 104 Carbon Dioxide 26 BUN 11 Creatinine 1.06 Glucose 110 Calcium 8.8 Cardiac Enzymes 04/05/25 04/05/25 Range/Units 07:43 10:36 Troponin I 0.018 0.021 (0.000-0.034) ng/mL Liver Function 04/05/25 Range/Units 07:43 Total Bilirubin 1.6 H (0.2-1.3) mg/dL AST 32 (17-59) U/L ALT 27 (6-50) U/L Alkaline Phosphatase 87 (38-126) U/L Albumin 4.0 (3.5-5.1) g/dL Urine 04/05/25 Range/Units 11:04 Urine Color Yellow (Yellow) Urine Appearance Clear (Clear) Urine pH 6.0 (5.0-9.0) Ur Specific [place] > 1.045 H (1.001-1.035) Urine Protein 1+ H (Negative) mg/dL Urine Glucose (UA) Negative (Negative) mg/dL Assessment and Plan Assessment and plan (1) Multifocal pneumonia: Code(s): J18.9 - Pneumonia, unspecified organism Status: Acute Plan Community-acquired pneumonia CT chest reviewed Blood cultures, start Levaquin. Monitor. Cardiomegaly with elevated BNP Rule out cardiomyopathy Echo ordered Monitor Hypersomnolence Continue Adderall Patient follows Neurology outpatient. DVT prophylaxis subQ Lovenox Full code Surrogate decision maker is Yemi Brunson Hospitalist MIPS Advance Care Plan I have confirmed that the patient's Advanced Care Plan is present, code status is documented, or surrogate decision maker is listed in patient medical record.: Yes Medication Reconciliation I have utilized all available resources to obtain, update and review the patients current medications (includes all prescriptions, OTC, herbals, cannabis, and nutritional supplements).: Yes
[2025-04-05] MEDS: levoFLOXacin 750 MG/D5W 150 ML 750 MG/150 ML BAG 100 MG IVPB (16:55)
--- NOTE | 2025-04-05 18:16 | PC.NURSE ---
pt called out due to episode of emesis. this RN left a message for the hospitalist for an order of zofran for pt, no response at this time
--- NOTE | 2025-04-05 18:31 | PC.NURSE ---
per hospitalist, Reglan can be given off schedule at this time due to pt condition
[2025-04-05] MEDS: CALCIUM CARBONATE (TUMS) 500 MG (200 MG ELEMENTAL) PO (18:41)
[2025-04-05] MEDS: METOCLOPRAMIDE HCL INJ 10 MG/2 ML VIAL IV PUSH (18:42)
--- NOTE | 2025-04-05 23:35 | ADMGEN ---
This patient, Connor Rios III, was admitted to IMU Room 209-01. Patient/family oriented to hospital policies and general routines including ID bracelet, bed and alarms, visiting hours, pain management, procedures, bathroom and other care routines, personal items, smoking policy, room service/diet, and visiting hours. Information on how to activate the Rapid Response Team has been discussed. Patient/Family are encouraged to report perceived risks to care and to ask questions if they do not understand what they are told or what they should do.
[2025-04-06] VITALS (19 sets, daily range): BP systolic 122–133; BP diastolic 82–90; PULSE 87–105; RESP 16–22; TEMP 36.6–37.5; O2SAT 95–98; BMI 22.6
[2025-04-06] MEDS: LEVALBUTEROL NEB 1.25 MG/3 ML INHALATION ×3 (02:33→20:19)
[2025-04-06] MEDS: IPRATROPIUM BR 0.02% INH SOLN 0.5 MG/2.5 ML VIAL INHALATION ×3 (02:33→20:19)
[2025-04-06 04:46] LABS: Basophils Percent Auto 0.3 % (0.2-1.2); Eosinophils Percent Auto 0.1 % (0-4.4); Hematocrit 43.1 % (42.0-52.0); Hemoglobin 14.4 g/dL (14.0-18.0); Immature Granulocyte Absolute 0.03 K/mm3 (0.00-0.031); Immature Granulocyte Percent A 0.4 % (0-0.5); Lymphocytes Absolute Auto 0.66 K/mm3 (0.9-3.2); Lymphocytes Percent Auto 9.3 % (18.3-44.2); Mean Corpuscular HGB Conc 33.4 g/dl (32-36); Mean Corpuscular Hemoglobin 28.5 pg (26-34); Mean Corpuscular Volume 85.2 fl (80-100); Mean Platelet Volume 11.3 fl (7.4-10.4); Monocytes Absolute Auto 0.6 K/mm3 (0.1-0.6); Monocytes Percent Auto 8.6 % (2.6-8.5); Neutrophils Absolute Auto 5.8 K/mm3 (1.3-6.7); Neutrophils Percent Auto 81.3 % (45.5-73.1); Platelet Count Result 224 k/mm3 (150-375); Red Blood Count 5.06 M/mm3 (4.6-6.20); Red Cell Distribution Width 13.7 % (11.5-14.5); White Blood Count 7.1 K/mm3 (4.5-10.0)
[2025-04-06 04:59] LABS: Alanine Aminotransferase 23 U/L (6-50); Albumin Level 3.8 g/dL (3.5-5.1); Alkaline Phosphatase 81 U/L (38-126); Anion Gap 11 mmol/L (4-12); Aspartate Amino Transferase 37 U/L (17-59); Bilirubin,Total 1.5 mg/dL (0.2-1.3); Blood Urea Nitrogen 11 mg/dL (9-20); Calcium 8.5 mg/dL (8.4-10.2); Carbon Dioxide 21 mmol/L (22-30); Chloride 103 mmol/L (98-107); Estimated CRCL calculation 89 ml/min; Estimated Glomerular Filt Rate > 60; Glucose 108 mg/dL (65-110); Magnesium 1.6 mg/dL (1.6-2.3); Potassium 4.3 mmol/L (3.4-5.0); Sodium 135 mmol/L (137-145)
--- NOTE | 2025-04-06 06:00 | ECHO_ITS ---
Patient Info Name: Connor Rios Age: 44 years : 1980 Gender: Male Ht: 70 in Wt: 180 lbs BSA: 2.02 m2 HR: 96 bpm BP: 128 / 87 mmHg Technical Quality: Good Exam Date: 04/06/2025 2:42 PM Patient Status: I Admit Date: 04/05/2025 Exam Type: CA echo dop color flow w con Complete two-dimensional, color flow and Doppler transthoracic echocardiogram is performed with contrast to opacify the left ventricle and to improve the deliniation of the left ventricle endocardial borders. Staff Referring Physician: Abhilash Doshi MD Food And Nutrition Professor: Neva Bonilla Attending Provider: Mona Keith Contrast/Agitated Saline Contrast/Ag. Saline: Definity Amount: 3.00 ml Existing IV Access: Yes IV Access Condition: patent with no signs of infiltration Summary 1. The left ventricle is mildly dilated with severely reduced systolic function. The left ventricular ejection fraction is visually estimated to be 20-25%. 2. There is no mitral stenosis. There is tethering of the mitral valve leaflets resulting in moderate eccentric mitral regurgitation. The eccentric nature of the mitral regurgitant jet may underestimate severity. Left Ventricle The left ventricle is mildly dilated with severely reduced systolic function. The left ventricular ejection fraction is visually estimated to be 20-25%. Right Ventricle The right ventricle is normal in size and systolic function. Left Atria The left atrium is severely dilated. Right Atria The right atrium is normal size. Atrial Septum The atrial septum is normal. Aortic Valve The aortic valve is trileaflet and opens well. There is no aortic regurgitation. Pulmonic Valve The pulmonic valve is grossly normal. There is no pulmonic valve regurgitation by color Doppler. Mitral Valve There is no mitral stenosis. There is tethering of the mitral valve leaflets resulting in moderate eccentric mitral regurgitation. The eccentric nature of the mitral regurgitant jet may underestimate severity. Tricuspid Valve The tricuspid valve is normal. There is no tricuspid regurgitation. Pericardium/Pleural Pericardium is normal in appearance with no evidence for significant pericardial effusion. Inferior Vena Cava Normal inferior vena cava with >50% collapse upon inspiration consistent with normal right atrial pressure, 3 mmHg. Aorta The aortic root at the level of the sinus of Valsalva measures 2.9 cm in diameter. Left Ventricular Outflow Tract Name Value Normal LVOT 2D LVOT Diameter 2.1 cm LVOT Doppler LVOT Peak Velocity 99 cm/s LVOT Peak Gradient 4 mmHg LVOT Mean Gradient 3 mmHg LVOT VTI 17 cm LVOT VTI/AV VTI Ratio 0.8 LVOT Stroke Volume 56 ml LVOT CO 15.5 l/min LVOT CI 7.7 l/min/m2 Pulmonic Valve Name Value Normal PV Doppler PV Peak Velocity 75 cm/s PV Peak Gradient 2 mmHg Mitral Valve Name Value Normal MV Diastolic Function MV E Peak Velocity 93 cm/s MV A Peak Velocity 5 cm/s MV E/A 17.1 MV Decel Time (PW) 212 ms MV Annular TDI MV E/e' (Septal) 10.9 MV E/e' (Lateral) 7.1 MV E/e' (Average) 9.0 Tricuspid Valve Name Value Normal TV Regurgitation Doppler TR Peak Velocity 354 cm/s TR Peak Gradient 49 mmHg Estimated PAP/RSVP RA Pressure 3 mmHg <=5 PA Systolic Pressure 53 mmHg <36 RV Systolic Pressure 53 mmHg <36 TV Annular TDI TV Lateral Mary [place]' Velocity 12.2 cm/s >=9.5 Aorta Name Value Normal Ascending Aorta Ao Root Diameter (MM) 3.1 cm Ao Root Diam Index (MM) 1.5 cm/m2 Aortic Valve Name Value Normal AV Doppler AV Peak Velocity 121 cm/s AV Peak Gradient 6 mmHg AV Mean Gradient 4 mmHg AV VTI 21 cm AV Area (Cont Eq VTI) 2.7 cm2 >=3.0 AV Area (Cont Eq Herber) 2.7 cm2 AV DI (Herber) 0.82 AV Regurgitation 2D LVOT Area 3.3 cm2 Ventricles Name Value Normal LV Dimensions 2D/MM IVS Diastolic Thickness (2D) 0.8 cm 0.6-1.0 LVID Diastole (2D) 6.2 cm 4.2-5.8 LVIW Diastolic Thickness (2D) 0.9 cm 0.6-1.0 LVID Systole (2D) 5.8 cm 2.5-4.0 LVOT Diameter 2.1 cm LV Mass (2D Cubed) 212.93 g 88.00-224.00 LV Mass Index (2D Cubed) 105 g/m2 49-115 Relative Wall Thickness (2D) 0.28 <=0.42 LV Fractional Shortening/Ejection Fraction 2D/MM LV Fractional Shortening (2D) 7 % 25-43 LV EF (2D Teichyuliaz) 15 % LV Diastolic Volume (4C MOD) 220 ml LV EF (4C MOD) 35 % LV Diastolic Volume (2C MOD) 222 ml LV EF (2C MOD) 26 % LV Diastolic Volume (BP MOD) 206 ml 62-150 LV Diastolic Volume Index (BP MOD) 102 ml/m2 34-74 LV Systolic Volume (BP MOD) 150 ml 21-61 LV Systolic Volume Index (BP MOD) 74 ml/m2 11-31 LV EF (BP MOD) 27 % 52-72 LV Diastolic Length (4C) 9.7 cm LV Systolic Length (4C) 9.0 cm LV Stroke Volume (4C MOD) 76 ml RV Dimensions 2D/MM RVID Diastole (2D) 4.0 cm 2.1-3.5 Atria Name Value Normal LA Dimensions LA Dimension (MM) 4.6 cm 3.0-4.0 LA Volume (4C A-L) 137 ml LA Volume (BP A-L) 126 ml RA Dimensions RA Systolic Major [place] Length (4C) 5.2 cm 2.1-2.7 RA Area (4C) 16.2 cm2 <=18.0 Report Signatures
[2025-04-06] MEDS: DOXYCYCLINE 100 MG/NS 100 ML 100 MG/100 ML BAG IVPB ×2 (09:28→20:42)
[2025-04-06] MEDS: METOCLOPRAMIDE HCL INJ 10 MG/2 ML VIAL IV PUSH (13:10)
[2025-04-06] MEDS: PERFLUTREN LIPID MICROSPHERES 1.5 ML VIAL DILUTED TO 10 ML TOTAL VOLUME IV PUSH (15:00)
--- NOTE | 2025-04-06 15:23 | IVDEFINITY ---
Prior to administration of IV Definity the patient was educated on the risks and benefits of the imaging enhancing agent including potential adverse side effects. The patient verbalized understanding. Allergies were verified. No exclusion criteria were identified and at least one of the following inclusion criteria were met: 1) physician request, 2) patient technically difficult to image (per the [place] [employer]chocardi[employer] guidelines of two or more segments not discernable within the apical view), or 3) questionable left ventricular function. ?
--- NOTE | 2025-04-06 15:55 | PM.IMPN ---
Progress Note: A&P Assessment and Plan (1) Multifocal pneumonia: Code(s): J18.9 - Pneumonia, unspecified organism Status: Acute Plan Community-acquired pneumonia CT chest reviewed Blood cultures, start Levaquin. Monitor. Cardiomegaly ECHO EF 25% Cardiology consulted CT Chest no pleural effusion or edema Monitor Hypersomnolence Continue Adderall Patient follows Neurology outpatient. DVT prophylaxis subQ Lovenox Full code Subjective Date/time seen: 04/06/25 15:55 Interval history: COmfortable at bedisde ECHo today showed Ef 25%, cardiology consulted Review of Systems Review of Systems: All other systems reviewed and negative except the history above. Exam Narrative: General: alert and comfortable Eyes: EOMI, PERRLA ENNT External ears normal, Neck is supple, no masses, Respiratory systems: Clear to auscultation Cardiovascular S1, S2, normal rhythm, no murmur, rub, or gallop; no thrill or palpable murmurs on palpation. Gastrointestinal: soft, non-tender, and non-distended abdomen with no masses; BS present Skin: no rash, lesions, ulcerations, subcutaneous nodules or induration Musculoskeletal: no abnormality and no tenderness, normal ROM Neurologic: Alert and oriented x3, non focal Mental Status Exam: normal affect Objective Data Vital Signs Vital Signs: Vital Signs - 24 hr 04/05/25 17:01 04/05/25 18:00 04/05/25 22:00 Temperature Pulse Rate 91 94 92 Respiratory Rate 32 H 30 H 18 Blood Pressure 107/74 124/86 Pulse Oximetry 98 99 Oxygen Delivery 04/05/25 22:01 04/05/25 23:19 04/05/25 23:32 Temperature 98.5 F Pulse Rate 95 94 93 Respiratory Rate 16 15 17 Blood Pressure 128/91 H 126/85 Pulse Oximetry 96 98 Oxygen Delivery 04/05/25 23:58 04/06/25 00:00 04/06/25 00:08 Temperature Pulse Rate 90 Respiratory Rate Blood Pressure Pulse Oximetry Oxygen Delivery Room Air Room Air 04/06/25 00:31 04/06/25 02:00 04/06/25 02:33 Temperature 97.9 F Pulse Rate 92 104 H 93 Respiratory Rate 17 22 H Blood Pressure 131/82 Pulse Oximetry 97 Oxygen Delivery 04/06/25 03:33 04/06/25 03:44 04/06/25 04:00 Temperature 98.7 F Pulse Rate 96 92 Respiratory Rate 17 Blood Pressure 128/87 Pulse Oximetry 95 Oxygen Delivery Room Air 04/06/25 05:54 04/06/25 07:58 04/06/25 08:00 Temperature 99.5 F Pulse Rate 95 93 Respiratory Rate 20 Blood Pressure 129/90 Pulse Oximetry 98 Oxygen Delivery Room Air 04/06/25 08:00 04/06/25 08:18 04/06/25 10:00 Temperature Pulse Rate 93 91 95 Respiratory Rate 20 Blood Pressure Pulse Oximetry Oxygen Delivery 04/06/25 12:00 04/06/25 12:00 04/06/25 12:00 Temperature 98.5 F Pulse Rate 92 94 Respiratory Rate 20 Blood Pressure 123/84 Pulse Oximetry 98 Oxygen Delivery Room Air 04/06/25 14:00 Temperature Pulse Rate 95 Respiratory Rate Blood Pressure Pulse Oximetry Oxygen Delivery Intake/Output Intake/Output: Intake & Output 04/03/25 04/04/25 04/05/25 04/06/25 23:59 23:59 23:59 23:59 Intake Total 400 360 Balance 400 360 Meds/Results Medications: Active Medications Generic Name Dose Route Start Last Admin Trade Name Freq PRN Reason Stop Dose Admin Acetaminophen 650 mg 04/05/25 09:54 Acetaminophen 325 Mg Tablet PO Q4H PRN Mild Pain (1-3) or Fever Calcium Carbonate 200 mg 04/05/25 18:19 04/05/25 18:41 Calcium Carbonate (Tums) 500 Mg (200 Mg Elemental) PO 200 mg Q6H PRN Administration Indigestion Ceftriaxone Sodium 1 gm in 50 mls @ 100 mls/hr 04/06/25 09:00 04/06/25 09:00 Rocephin 1 Gm/Ns 50 Ml IVPB 100 mls/hr Q24H GABY Administration Doxycycline Hyclate 100 mg in 100 mls @ 100 mls/hr 04/05/25 21:00 04/06/25 09:28 Vibramycin 100 Mg/Ns 100 Ml IVPB 100 mls/hr Q12H GABY Administration Levofloxacin/Dextrose 750 mg in 150 mls @ 100 mls/hr 04/05/25 16:00 04/05/25 18:25 Levaquin 750 Mg/D5w 150 Ml IVPB Infused Q24H GABY Infusion Ipratropium [place] 0.5 mg 04/06/25 02:00 04/06/25 14:50 Ipratropium Br 0.02% Inh Soln 0.5 Mg/2.5 Ml Vial INHALATION Not Given Q6HRT GABY Levalbuterol HCl 1.25 mg 04/06/25 02:00 04/06/25 14:50 Levalbuterol Neb 1.25 Mg/3 Ml INHALATION Not Given Q6HRT GABY Metoclopramide HCl 10 mg 04/05/25 18:35 04/06/25 13:10 Metoclopramide Hcl Inj 10 Mg/2 Ml Vial IV PUSH 10 mg Q6HR GABY Administration Radiology Results: ITS Impressions Chest X-Ray 04/05/25 08:27 IMPRESSION: Early infiltrate suspected within the right upper lobe. Chest CTA 04/05/25 08:36 IMPRESSION: No pulmonary embolus. No thoracic aortic dissection. Multifocal infiltrates versus pulmonary edema affecting the right upper middle and lower lobes and left lower lobe. Mediastinal, hilar and upper abdominal lymphadenopathy is also detected, most likely reactive, but a systemic abnormality cannot be excluded based on the CT appearance. The lack of axillary lymphadenopathy makes the possibility of a systemic abnormality less likely. Labs Labs: Laboratory Results - last 24 hr 04/06/25 04:18 WBC 7.1 RBC 5.06 Hgb 14.4 Hct 43.1 MCV 85.2 MCH 28.5 MCHC 33.4 RDW 13.7 Plt Count 224 MPV 11.3 H Immature Gran % (Auto) 0.4 Neut % (Auto) 81.3 H Lymph % (Auto) 9.3 L [place] % (Auto) 8.6 H Eos % (Auto) 0.1 Baso % (Auto) 0.3 Lymph # (Auto) 0.66 L [place] # (Auto) 0.6 Eos # (Auto) 0.0 Baso # (Auto) 0.0 Abs Immat Gran (auto) 0.03 Absolute Neuts (auto) 5.8 Absolute Nucleated RBC 0.000 Nucleated RBC % 0.0 Sodium 135 L Potassium 4.3 Chloride 103 Carbon Dioxide 21 L Anion Gap 11 BUN 11 Creatinine 0.97 Estim Creat Clear Calc 89 Estimated GFR > 60 Glucose 108 Calcium 8.5 Magnesium 1.6 Total Bilirubin 1.5 H AST 37 ALT 23 Alkaline Phosphatase 81 Total Protein 7.0 Albumin 3.8
[2025-04-06] MEDS: levoFLOXacin 750 MG/D5W 150 ML 750 MG/150 ML BAG 100 MG IVPB (16:04)
[2025-04-06] MEDS: CALCIUM CARBONATE (TUMS) 500 MG (200 MG ELEMENTAL) PO (16:06)
[2025-04-07] VITALS (23 sets, daily range): BP systolic 104–132; BP diastolic 71–87; PULSE 70–102; RESP 14–20; TEMP 36.6–37; O2SAT 92–100
[2025-04-07] MEDS: IPRATROPIUM BR 0.02% INH SOLN 0.5 MG/2.5 ML VIAL INHALATION ×4 (02:25→20:50)
[2025-04-07] MEDS: LEVALBUTEROL NEB 1.25 MG/3 ML INHALATION ×4 (02:25→20:50)
[2025-04-07 04:22] LABS: Basophils Percent Auto 0.4 % (0.2-1.2); Eosinophils Percent Auto 0.4 % (0-4.4); Hematocrit 45.3 % (42.0-52.0); Immature Granulocyte Absolute 0.02 K/mm3 (0.00-0.031); Immature Granulocyte Percent A 0.4 % (0-0.5); Lymphocytes Absolute Auto 1.07 K/mm3 (0.9-3.2); Lymphocytes Percent Auto 19.9 % (18.3-44.2); Mean Corpuscular HGB Conc 33.1 g/dl (32-36); Mean Corpuscular Hemoglobin 28.3 pg (26-34); Mean Corpuscular Volume 85.5 fl (80-100); Mean Platelet Volume 10.9 fl (7.4-10.4); Monocytes Absolute Auto 0.6 K/mm3 (0.1-0.6); Monocytes Percent Auto 10.4 % (2.6-8.5); Neutrophils Absolute Auto 3.7 K/mm3 (1.3-6.7); Neutrophils Percent Auto 68.5 % (45.5-73.1); Platelet Count Result 225 k/mm3 (150-375); Red Cell Distribution Width 13.4 % (11.5-14.5); White Blood Count 5.4 K/mm3 (4.5-10.0)
[2025-04-07 06:28] LABS: Alanine Aminotransferase 22 U/L (6-50); Albumin Level 3.8 g/dL (3.5-5.1); Alkaline Phosphatase 68 U/L (38-126); Anion Gap 10 mmol/L (4-12); Aspartate Amino Transferase 42 U/L (17-59); Bilirubin,Total 1.5 mg/dL (0.2-1.3); Blood Urea Nitrogen 10 mg/dL (9-20); Calcium 8.8 mg/dL (8.4-10.2); Carbon Dioxide 21 mmol/L (22-30); Chloride 102 mmol/L (98-107); Estimated CRCL calculation 99 ml/min; Estimated Glomerular Filt Rate > 60; Glucose 100 mg/dL (65-110); Magnesium 1.8 mg/dL (1.6-2.3); Potassium 4.2 mmol/L (3.4-5.0); Sodium 133 mmol/L (137-145)
[2025-04-07] MEDS: DOXYCYCLINE 100 MG/NS 100 ML 100 MG/100 ML BAG IVPB ×2 (09:00→20:42)
--- NOTE | 2025-04-07 09:15 | P.CONCA_ITS ---
Assessment and Plan Assessment and plan (1) Cardiomyopathy: Code(s): I42.9 - Cardiomyopathy, unspecified Status: Acute Assessment and Plan: New diagnosis of dilated cardiomyopathy, EF 20-25%. Currently does not have any clinical symptoms of CHF. * He does have moderate MR with tethering of the leaflets, which could be the etiology of his dilated CMY. Other etiologies include but are not limited to coronary artery disease (not likely), post viral CMY, substance abuse (prior history of anabolic steroid use in 2013), or idiopathic. * Will initiate GDMT with Entresto 24-26mg b.i.d. * If blood pressure tolerates, will add Coreg and spironolactone, and jardiance. Does not require diuresis at this point. * Closely monitor BP and kidney function * Ischemic evaluation with [facility] which can be done as outpatient * LifeVest has been ordered * CHF counseling * Cardiac rehab * Anticipate discharge within the next 24-48 hours (2) Mitral regurgitation: Code(s): I34.0 - Nonrheumatic mitral (valve) insufficiency Status: Acute Assessment and Plan: At least moderate MR. Unclear if this is primary or functional MR. No clinical CHF. * Will plan for outpatient WANDA to better define valve anatomy and severity of MR. (3) Multifocal pneumonia: Code(s): J18.9 - Pneumonia, unspecified organism Status: Acute Assessment and Plan: Abx and other management per hospitalist service. History of Present Illness History of Present Illness Consult date/time: 04/07/25 09:15 Requesting physician: Mona Keith MD Consult reason: congestive heart failure Reason For Visit: Multifocal pneumonia, cardiomegaly, prolonged QT Narrative: Connor Rios is a 44-year-old male with anxiety, depression, and PTSD. This is a patient who presented to the hospital with a chief complaint of shortness of breath. He has been found to have multifocal pneumonia and was admitted for treatment and management of this. Cardiology is consulted because of congestive heart failure new finding of cardiomyopathy with EF of 05-25%. Patient denies any cardiac history, however he does have a family history of cardiovascular disease in his mother who has hypertrophic cardiomyopathy and his father with coronary artery disease. He denies any chest pain, swelling, palpitations. He does endorse shortness of breath at rest which has been ongoing since at least December of this year. He also had a dry cough that was not associated with any other symptoms. He reports improvement in his shortness of breath since beginning treatment for his pneumonia. Currently, he feels well and does not have any active complaints. Review of Systems 2 Review of Systems: All systems reviewed & are unremarkable except as noted in HPI and below PMFSH Past Medical History Medical History Idiopathic hypersomnia Anxiety Depression Family History Family History Mother Diabetes mellitus Grandparent Cancer Grandparent Cancer Social History Social History Smoking status: Former smoker Tobacco type: cigars Smoking end date: 11/09/12 Additional smoking assessment comments: 2003 Alcohol intake: current Drinks per week: 1 Alcohol use details: 1 deshawn a week Substance use: unknown Do You Feel Safe in your Home?: Yes Lack of Transportation: No Lack of Food: Never True Current Housing: I Have Housing Concerned About Future Housing: No Difficulty Paying Gas/Electric Bills: No Difficulty Paying for Meds: No Currently Unemployed: No Education: Bachelor's Degree Difficulty w/ Childcare or Family Care: No Spiritual care concerns: No Meds Home Medications and Allergies Home Medications ?Medication ?Instructions ?Recorded ?Confirmed ?Type ibuprofen 600 mg tablet (IBU) 600 mg PO Q6H PRN pain #20 tabs 03/14/22 04/05/25 Rx dextroamphetamine-amphetamine 10 10 mg PO DAILY 1 month #30 tabs 03/21/25 04/05/25 Rx mg tablet (Adderall) dextroamphetamine-amphetamine ER 25 mg PO DAILY 1 month #30 caps 03/21/25 04/05/25 Rx 25 mg 24hr capsule,extend release (Adderall XR) Allergies Allergy/AdvReac Type Severity Reaction Status Date / Time latex Allergy Hives Verified 04/05/25 14:39 Vital Signs Vital Signs - 24 hr 04/06/25 10:00 04/06/25 12:00 04/06/25 12:00 Temperature 36.9 C Pulse Rate 95 92 94 Respiratory Rate 20 Blood Pressure 123/84 Pulse Oximetry 98 Oxygen Delivery 04/06/25 12:00 04/06/25 14:00 04/06/25 16:00 Temperature 37.4 C Pulse Rate 95 100 Respiratory Rate 18 Blood Pressure 122/88 Pulse Oximetry 97 Oxygen Delivery Room Air 04/06/25 16:00 04/06/25 16:00 04/06/25 19:25 Temperature 36.8 C Pulse Rate 105 H 95 Respiratory Rate 16 Blood Pressure 133/87 Pulse Oximetry 96 Oxygen Delivery Room Air 04/06/25 20:00 04/06/25 20:00 04/06/25 20:19 Temperature Pulse Rate 102 H 87 Respiratory Rate 20 Blood Pressure Pulse Oximetry Oxygen Delivery Room Air 04/06/25 20:26 04/06/25 22:00 04/06/25 23:21 Temperature Pulse Rate 90 90 Respiratory Rate 20 Blood Pressure Pulse Oximetry Oxygen Delivery Room Air 04/07/25 00:00 04/07/25 00:00 04/07/25 02:00 Temperature 36.6 C Pulse Rate 70 86 94 Respiratory Rate 17 Blood Pressure 132/87 Pulse Oximetry 92 Oxygen Delivery 04/07/25 02:27 04/07/25 02:36 04/07/25 03:20 Temperature Pulse Rate 83 91 Respiratory Rate 20 20 Blood Pressure Pulse Oximetry Oxygen Delivery Room Air 04/07/25 03:22 04/07/25 04:00 04/07/25 06:00 Temperature 36.7 C Pulse Rate 88 102 H 87 Respiratory Rate 16 Blood Pressure 118/78 Pulse Oximetry 92 Oxygen Delivery 04/07/25 07:46 04/07/25 07:59 04/07/25 08:00 Temperature 37.0 C Pulse Rate 86 88 83 Respiratory Rate 14 16 20 Blood Pressure 119/84 Pulse Oximetry 100 Oxygen Delivery Exam 2 Const: General: comfortable, no acute distress, alert and awake O rientation/consciousness: patient oriented x3 HENMT: Head: normal to inspection Eyes: General: appearance normal, both eyes and all related structures P upils: Equal, round and reactive pupils present Neck: Neck: normal visual inspection, supple and no JVD Resp: Effort & Inspection: normal respiratory effort Auscultation: crackles and wheezes expiratory wheezes, left lower and posterior Cardio: Rate: regular rate Rhythm: regular rhythm Heart sounds: S1 normal heart sound present, S2 normal heart sound present and no murmurs Skin: General skin exam: normal color Neuro: General: patient oriented x3 Cranial nerves: Yes Equal, round and reactive pupils present Extrem: General: normal to inspection Psych: Appearance: grossly normal Mental Status: mental status grossly normal Results Labs and Meds 04/07/25 04:00 04/07/25 04:00 Lab results: Cardiac Enzymes 04/07/25 Range/Units 04:00 AST 42 (17-59) U/L CBC 04/07/25 Range/Units 04:00 WBC 5.4 (4.5-10.0) K/mm3 RBC 5.30 (4.6-6.20) M/mm3 Hgb 15.0 (14.0-18.0) g/dL Hct 45.3 (42.0-52.0) % Plt Count 225 (150-375) k/mm3 Lymph # (Auto) 1.07 (0.9-3.2) K/mm3 [place] # (Auto) 0.6 (0.1-0.6) K/mm3 Eos # (Auto) 0.0 (0-0.3) K/mm3 Baso # (Auto) 0.0 (0.0-0.1) K/mm3 Comprehensive Metabolic Panel 04/07/25 Range/Units 04:00 Sodium 133 L (137-145) mmol/L Potassium 4.2 (3.4-5.0) mmol/L Chloride 102 (98-107) mmol/L Carbon Dioxide 21 L (22-30) mmol/L BUN 10 (9-20) mg/dL Creatinine 0.83 (0.7-1.3) mg/dL Glucose 100 (65-110) mg/dL Calcium 8.8 (8.4-10.2) mg/dL AST 42 (17-59) U/L ALT 22 (6-50) U/L Alkaline Phosphatase 68 (38-126) U/L Total Protein 7.0 (6.3-8.2) g/dL Albumin 3.8 (3.5-5.1) g/dL Intake and Output 04/06/25 04/07/25 04/07/25 23:59 07:59 15:59 Intake Total 100 Balance 100 Intake: IV 100 Doxycycline 100 mg/Ns 100 ml 100 100 mg In 100 ml @ 100 mls/hr IVPB Q12H [facility] Rx#:[id number] Other: # Unmeasured Voids 3 2 Number of Bowel Movements Today 2 Patient Weight 04/07/25 23:59 Weight 70.1 kg
--- NOTE | 2025-04-07 12:26 | P.PNIM_ITS ---
Progress Note: A&P Assessment and Plan (1) Multifocal pneumonia: Code(s): J18.9 - Pneumonia, unspecified organism Status: Acute Plan Community-acquired pneumonia CT chest reviewed Blood cultures, on Levaquin. Monitor. Cardiomegaly and MR ECHO EF 25% CT Chest no pleural effusion or edema COntinue cardiac meds titration by cardiology WANDA and ischemic workup planned outpatient by cards Monitor Hypersomnolence Continue Adderall Patient follows Neurology outpatient. DVT prophylaxis subQ Lovenox Full code Subjective Date/time seen: 04/07/25 12:26 Interval history: COmfortable at bedisde cardiology eval noted Review of Systems Review of Systems: All other systems reviewed and negative except the history above. Exam Narrative: General: alert and comfortable Eyes: EOMI, PERRLA ENNT External ears normal, Neck is supple, no masses, Respiratory systems: Clear to auscultation Cardiovascular S1, S2, normal rhythm, no murmur, rub, or gallop; no thrill or palpable murmurs on palpation. Gastrointestinal: soft, non-tender, and non-distended abdomen with no masses; BS present Skin: no rash, lesions, ulcerations, subcutaneous nodules or induration Musculoskeletal: no abnormality and no tenderness, normal ROM Neurologic: Alert and oriented x3, non focal Mental Status Exam: normal affect Objective Data Vital Signs Vital Signs: Vital Signs - 24 hr 04/06/25 14:00 04/06/25 16:00 04/06/25 16:00 Temperature 99.3 F Pulse Rate 95 100 Respiratory Rate 18 Blood Pressure 122/88 Pulse Oximetry 97 Oxygen Delivery Room Air 04/06/25 16:00 04/06/25 19:25 04/06/25 20:00 Temperature 98.3 F Pulse Rate 105 H 95 Respiratory Rate 16 Blood Pressure 133/87 Pulse Oximetry 96 Oxygen Delivery Room Air 04/06/25 20:00 04/06/25 20:19 04/06/25 20:26 Temperature Pulse Rate 102 H 87 90 Respiratory Rate 20 20 Blood Pressure Pulse Oximetry Oxygen Delivery 04/06/25 22:00 04/06/25 23:21 04/07/25 00:00 Temperature 97.9 F Pulse Rate 90 70 Respiratory Rate 17 Blood Pressure 132/87 Pulse Oximetry 92 Oxygen Delivery Room Air 04/07/25 00:00 04/07/25 02:00 04/07/25 02:27 Temperature Pulse Rate 86 94 83 Respiratory Rate 20 Blood Pressure Pulse Oximetry Oxygen Delivery 04/07/25 02:36 04/07/25 03:20 04/07/25 03:22 Temperature 98.0 F Pulse Rate 91 88 Respiratory Rate 20 16 Blood Pressure 118/78 Pulse Oximetry 92 Oxygen Delivery Room Air 04/07/25 04:00 04/07/25 06:00 04/07/25 07:46 Temperature Pulse Rate 102 H 87 86 Respiratory Rate 14 Blood Pressure Pulse Oximetry Oxygen Delivery 04/07/25 07:59 04/07/25 08:00 Temperature 98.6 F Pulse Rate 88 83 Respiratory Rate 16 20 Blood Pressure 119/84 Pulse Oximetry 100 Oxygen Delivery Intake/Output Intake/Output: Intake & Output 04/04/25 04/05/25 04/06/25 04/07/25 23:59 23:59 23:59 23:59 Intake Total 400 610 Balance 400 610 Meds/Results Medications: Active Medications Generic Name Dose Route Start Last Admin Trade Name Freq PRN Reason Stop Dose Admin Acetaminophen 650 mg 04/05/25 09:54 Acetaminophen 325 Mg Tablet PO Q4H PRN Mild Pain (1-3) or Fever Calcium Carbonate 200 mg 04/05/25 18:19 04/06/25 16:06 Calcium Carbonate (Tums) 500 Mg (200 Mg Elemental) PO 200 mg Q6H PRN Administration Indigestion Ceftriaxone Sodium 1 gm in 50 mls @ 100 mls/hr 04/06/25 09:00 04/07/25 08:59 Rocephin 1 Gm/Ns 50 Ml IVPB 100 mls/hr Q24H GABY Administration Doxycycline Hyclate 100 mg in 100 mls @ 100 mls/hr 04/05/25 21:00 04/07/25 09:00 Vibramycin 100 Mg/Ns 100 Ml IVPB 100 mls/hr Q12H GABY Administration Levofloxacin/Dextrose 750 mg in 150 mls @ 100 mls/hr 04/05/25 16:00 04/06/25 16:04 Levaquin 750 Mg/D5w 150 Ml IVPB 100 mls/hr Q24H GABY Administration Ipratropium [place] 0.5 mg 04/06/25 02:00 04/07/25 07:46 Ipratropium Br 0.02% Inh Soln 0.5 Mg/2.5 Ml Vial INHALATION 0.5 mg Q6HRT GABY Administration Levalbuterol HCl 1.25 mg 04/06/25 02:00 04/07/25 07:46 Levalbuterol Neb 1.25 Mg/3 Ml INHALATION 1.25 mg Q6HRT GABY Administration Metoclopramide HCl 10 mg 04/05/25 18:35 04/07/25 11:34 Metoclopramide Hcl Inj 10 Mg/2 Ml Vial IV PUSH Not Given Q6HR GABY Sacubitril/Valsartan 1 tab 04/07/25 21:00 Sacubitril/Valsartan 24-26 Mg Tablet PO Q12HR GABY Radiology Results: ITS Impressions Chest X-Ray 04/05/25 08:27 IMPRESSION: Early infiltrate suspected within the right upper lobe. Chest CTA 04/05/25 08:36 IMPRESSION: No pulmonary embolus. No thoracic aortic dissection. Multifocal infiltrates versus pulmonary edema affecting the right upper middle and lower lobes and left lower lobe. Mediastinal, hilar and upper abdominal lymphadenopathy is also detected, most likely reactive, but a systemic abnormality cannot be excluded based on the CT appearance. The lack of axillary lymphadenopathy makes the possibility of a systemic abnormality less likely. Labs Labs: Laboratory Results - last 24 hr 04/07/25 04:00 WBC 5.4 RBC 5.30 Hgb 15.0 Hct 45.3 MCV 85.5 MCH 28.3 MCHC 33.1 RDW 13.4 Plt Count 225 MPV 10.9 H Immature Gran % (Auto) 0.4 Neut % (Auto) 68.5 Lymph % (Auto) 19.9 [place] % (Auto) 10.4 H Eos % (Auto) 0.4 Baso % (Auto) 0.4 Lymph # (Auto) 1.07 [place] # (Auto) 0.6 Eos # (Auto) 0.0 Baso # (Auto) 0.0 Abs Immat Gran (auto) 0.02 Absolute Neuts (auto) 3.7 Absolute Nucleated RBC 0.000 Nucleated RBC % 0.0 Sodium 133 L Potassium 4.2 Chloride 102 Carbon Dioxide 21 L Anion Gap 10 BUN 10 Creatinine 0.83 Estim Creat Clear Calc 99 Estimated GFR > 60 Glucose 100 Calcium 8.8 Magnesium 1.8 Total Bilirubin 1.5 H AST 42 ALT 22 Alkaline Phosphatase 68 Total Protein 7.0 Albumin 3.8
[2025-04-07] MEDS: levoFLOXacin 750 MG/D5W 150 ML 750 MG/150 ML BAG 100 MG IVPB (18:01)
[2025-04-07] MEDS: ALPRAZolam (*CRX) 0.5 MG TABLET PO (20:43)
[2025-04-07] MEDS: SACUBITRIL/VALSARTAN 24-26 MG TABLET 1 TAB PO (20:43)
[2025-04-07] MEDS: guaiFENesin 12 HR 600 MG TABCR 1200 MG PO (20:43)
[2025-04-08] VITALS (26 sets, daily range): BP systolic 104–114; BP diastolic 58–81; PULSE 79–97; RESP 14–28; TEMP 36.6–36.8; O2SAT 96–100
[2025-04-08] MEDS: IPRATROPIUM BR 0.02% INH SOLN 0.5 MG/2.5 ML VIAL INHALATION ×4 (02:18→20:30)
[2025-04-08] MEDS: LEVALBUTEROL NEB 1.25 MG/3 ML INHALATION ×4 (02:18→20:31)
[2025-04-08 04:54] LABS: Basophils Percent Auto 0.6 % (0.2-1.2); Eosinophils Absolute Auto 0.2 K/mm3 (0-0.3); Eosinophils Percent Auto 4.4 % (0-4.4); Hematocrit 44.8 % (42.0-52.0); Hemoglobin 14.9 g/dL (14.0-18.0); Immature Granulocyte Absolute 0.02 K/mm3 (0.00-0.031); Immature Granulocyte Percent A 0.4 % (0-0.5); Lymphocytes Absolute Auto 1.37 K/mm3 (0.9-3.2); Lymphocytes Percent Auto 27.7 % (18.3-44.2); Mean Corpuscular HGB Conc 33.3 g/dl (32-36); Mean Corpuscular Hemoglobin 28.2 pg (26-34); Mean Corpuscular Volume 84.8 fl (80-100); Mean Platelet Volume 11.1 fl (7.4-10.4); Monocytes Absolute Auto 0.5 K/mm3 (0.1-0.6); Monocytes Percent Auto 10.1 % (2.6-8.5); Neutrophils Absolute Auto 2.8 K/mm3 (1.3-6.7); Neutrophils Percent Auto 56.8 % (45.5-73.1); Platelet Count Result 220 k/mm3 (150-375); Red Blood Count 5.28 M/mm3 (4.6-6.20); Red Cell Distribution Width 13.7 % (11.5-14.5)
[2025-04-08 05:07] LABS: Alanine Aminotransferase 23 U/L (6-50); Albumin Level 3.8 g/dL (3.5-5.1); Alkaline Phosphatase 77 U/L (38-126); Anion Gap 8 mmol/L (4-12); Aspartate Amino Transferase 42 U/L (17-59); Bilirubin,Total 1.3 mg/dL (0.2-1.3); Blood Urea Nitrogen 8 mg/dL (9-20); Calcium 8.8 mg/dL (8.4-10.2); Carbon Dioxide 25 mmol/L (22-30); Chloride 104 mmol/L (98-107); Estimated CRCL calculation 112 ml/min; Estimated Glomerular Filt Rate > 60; Glucose 98 mg/dL (65-110); Magnesium 1.9 mg/dL (1.6-2.3); Potassium 3.6 mmol/L (3.4-5.0); Sodium 137 mmol/L (137-145)
[2025-04-08] MEDS: SACUBITRIL/VALSARTAN 24-26 MG TABLET 1 TAB PO ×2 (09:32→20:56)
[2025-04-08] MEDS: DOXYCYCLINE 100 MG/NS 100 ML 100 MG/100 ML BAG IVPB ×2 (09:32→20:58)
--- NOTE | 2025-04-08 10:29 | P.PNCA_ITS ---
Progress Note: A&P Assessment and Plan (1) Cardiomyopathy: Code(s): I42.9 - Cardiomyopathy, unspecified Status: Acute Plan Add carvedilol and spironolactone to the Entresto today. Plans are for patient to remain in the hospital and arrange for left heart catheterization on Thursday Adria Macias MD [facility] Subjective Date/time seen: Date of service: 04/08/25 10:29 Interval history: Follow-up visit in this 44-year-old man with: Newly diagnosed cardiomyopathy with low ejection fraction and shortness of breath. Patient with mild pulmonary congestion on chest x-ray on admission. So far tolerating Entresto without any difficulty with hypotension after the 1st 2 doses. Long conversation with the patient and his significant other regarding additional medical therapy to be started to complete GDMT and the need to discuss timing of angiography to rule out ischemic heart disease. Exam Const: General: comfortable and no acute distress Other: Pleasant healthy-appearing young man no distress HENMT: Mouth: Yes moist mucous membranes Eyes: Sclera: sclerae normal Neck: Neck: supple and no JVD Resp: Effort & Inspection: normal respiratory effort Auscultation: clear to auscultation bilaterally Cardio: Rate: regular rate and tachycardic Rhythm: regular rhythm GI: GI Palp: Yes Soft to palpation Auscultation: normal bowel sounds Skin: General skin exam: normal color Neuro: Other: Normal cognition Extrem: Other: No edema, adequate perfusion Objective Data Vital Signs Vital Signs: Vital Signs - 24 hr 04/07/25 12:00 04/07/25 12:00 04/07/25 12:00 Temperature 36.6 C Pulse Rate 88 92 Respiratory Rate 16 Blood Pressure 116/74 Pulse Oximetry 97 98 Oxygen Delivery Room Air Fraction of Inspired Oxygen 04/07/25 14:00 04/07/25 14:15 04/07/25 14:29 Temperature Pulse Rate 85 87 82 Respiratory Rate 14 14 Blood Pressure Pulse Oximetry Oxygen Delivery Fraction of Inspired Oxygen 04/07/25 16:00 04/07/25 16:00 04/07/25 16:00 Temperature 36.6 C Pulse Rate 88 90 Respiratory Rate 16 Blood Pressure 109/75 Pulse Oximetry 99 99 Oxygen Delivery Room Air Fraction of Inspired Oxygen 04/07/25 18:00 04/07/25 20:00 04/07/25 20:00 Temperature 36.7 C Pulse Rate 87 86 Respiratory Rate 16 Blood Pressure 104/71 Pulse Oximetry 100 Oxygen Delivery Room Air Fraction of Inspired Oxygen 04/07/25 20:00 04/07/25 20:52 04/07/25 20:55 Temperature Pulse Rate 86 84 Respiratory Rate 16 Blood Pressure Pulse Oximetry 97 Oxygen Delivery Room Air Fraction of Inspired Oxygen 04/07/25 21:08 04/07/25 22:00 04/07/25 23:58 Temperature 36.7 C Pulse Rate 81 85 83 Respiratory Rate 16 16 Blood Pressure 107/73 Pulse Oximetry 100 Oxygen Delivery Fraction of Inspired Oxygen 04/07/25 23:59 04/08/25 00:00 04/08/25 02:00 Temperature Pulse Rate 79 81 Respiratory Rate Blood Pressure Pulse Oximetry Oxygen Delivery Room Air Fraction of Inspired Oxygen 04/08/25 02:21 04/08/25 02:36 04/08/25 04:00 Temperature Pulse Rate 80 79 Respiratory Rate 16 16 Blood Pressure Pulse Oximetry Oxygen Delivery Room Air Fraction of Inspired Oxygen 04/08/25 04:00 04/08/25 04:00 04/08/25 06:00 Temperature 36.8 C Pulse Rate 84 89 85 Respiratory Rate 16 Blood Pressure 114/78 Pulse Oximetry 100 Oxygen Delivery Fraction of Inspired Oxygen 04/08/25 07:25 04/08/25 08:15 04/08/25 08:15 Temperature 36.6 C Pulse Rate 84 83 Respiratory Rate 14 28 H Blood Pressure 110/81 Pulse Oximetry 98 96 Oxygen Delivery Room Air Fraction of Inspired Oxygen 04/08/25 08:32 Temperature Pulse Rate 86 Respiratory Rate 24 H Blood Pressure Pulse Oximetry Oxygen Delivery Fraction of Inspired Oxygen Intake/Output Intake/Output: Intake & Output 04/05/25 04/06/25 04/07/25 04/08/25 23:59 23:59 23:59 23:59 Intake Total 294 964 2099 710 Output Total 225 700 Balance 391 024 6058 10 Meds/Results Medications: Active Medications Generic Name Dose Route Start Last Admin Trade Name Freq PRN Reason Stop Dose Admin Acetaminophen 650 mg 04/05/25 09:54 Acetaminophen 325 Mg Tablet PO Q4H PRN Mild Pain (1-3) or Fever Alprazolam 0.5 mg 04/07/25 19:39 04/07/25 20:43 Alprazolam (*Crx) 0.5 Mg Tablet PO 0.5 mg TID PRN Administration Anxiety Calcium Carbonate 200 mg 04/05/25 18:19 04/06/25 16:06 Calcium Carbonate (Tums) 500 Mg (200 Mg Elemental) PO 200 mg Q6H PRN Administration Indigestion Guaifenesin 1,200 mg 04/07/25 21:00 04/08/25 09:33 Guaifenesin 12 Hr 600 Mg Tabcr PO Not Given Q12HR GABY Ceftriaxone Sodium 1 gm in 50 mls @ 100 mls/hr 04/06/25 09:00 04/08/25 09:33 Rocephin 1 Gm/Ns 50 Ml IVPB 100 mls/hr Q24H GABY Administration Doxycycline Hyclate 100 mg in 100 mls @ 100 mls/hr 04/05/25 21:00 04/08/25 09:32 Vibramycin 100 Mg/Ns 100 Ml IVPB 100 mls/hr Q12H GABY Administration Levofloxacin/Dextrose 750 mg in 150 mls @ 100 mls/hr 04/05/25 16:00 04/07/25 18:01 Levaquin 750 Mg/D5w 150 Ml IVPB 100 mls/hr Q24H GABY Administration Ipratropium [place] 0.5 mg 04/06/25 02:00 04/08/25 08:15 Ipratropium Br 0.02% Inh Soln 0.5 Mg/2.5 Ml Vial INHALATION 0.5 mg Q6HRT GABY Administration Levalbuterol HCl 1.25 mg 04/06/25 02:00 04/08/25 08:15 Levalbuterol Neb 1.25 Mg/3 Ml INHALATION 1.25 mg Q6HRT GABY Administration Metoclopramide HCl 10 mg 04/05/25 18:35 04/08/25 02:30 Metoclopramide Hcl Inj 10 Mg/2 Ml Vial IV PUSH Not Given Q6HR GABY Sacubitril/Valsartan 1 tab 04/07/25 21:00 04/08/25 09:32 Sacubitril/Valsartan 24-26 Mg Tablet PO 1 tab Q12HR GABY Administration Radiology Results: ITS Impressions Chest X-Ray 04/05/25 08:27 IMPRESSION: Early infiltrate suspected within the right upper lobe. Chest CTA 04/05/25 08:36 IMPRESSION: No pulmonary embolus. No thoracic aortic dissection. Multifocal infiltrates versus pulmonary edema affecting the right upper middle and lower lobes and left lower lobe. Mediastinal, hilar and upper abdominal lymphadenopathy is also detected, most likely reactive, but a systemic abnormality cannot be excluded based on the CT appearance. The lack of axillary lymphadenopathy makes the possibility of a systemic abnormality less likely. Labs Labs: Laboratory Results - last 24 hr 04/08/25 03:57 WBC 5.0 RBC 5.28 Hgb 14.9 Hct 44.8 MCV 84.8 MCH 28.2 MCHC 33.3 RDW 13.7 Plt Count 220 MPV 11.1 H Immature Gran % (Auto) 0.4 Neut % (Auto) 56.8 Lymph % (Auto) 27.7 [place] % (Auto) 10.1 H Eos % (Auto) 4.4 Baso % (Auto) 0.6 Lymph # (Auto) 1.37 [place] # (Auto) 0.5 Eos # (Auto) 0.2 Baso # (Auto) 0.0 Abs Immat Gran (auto) 0.02 Absolute Neuts (auto) 2.8 Absolute Nucleated RBC 0.000 Nucleated RBC % 0.0 Sodium 137 Potassium 3.6 Chloride 104 Carbon Dioxide 25 Anion Gap 8 BUN 8 L Creatinine 0.73 Estim Creat Clear Calc 112 Estimated GFR > 60 Glucose 98 Calcium 8.8 Magnesium 1.9 Total Bilirubin 1.3 AST 42 ALT 23 Alkaline Phosphatase 77 Total Protein 7.0 Albumin 3.8
[2025-04-08] MEDS: SPIRONOLACTONE 25 MG TABLET PO (11:36)
--- NOTE | 2025-04-08 15:44 | P.PNIM_ITS ---
Progress Note: A&P Assessment and Plan (1) Multifocal pneumonia: Code(s): J18.9 - Pneumonia, unspecified organism Status: Acute Plan Community-acquired pneumonia CT chest reviewed Blood cultures, on Levaquin. Monitor. Cardiomegaly and MR ECHO EF 25% CT Chest no pleural effusion or edema Continue Entresto and Spironolactone per cards For Cardiac cath on Thursday Monitor Hypersomnolence Continue Adderall Patient follows Neurology outpatient. DVT prophylaxis subQ Lovenox Full code Subjective Date/time seen: 04/08/25 15:44 Interval history: Comfortable at bedside for Cardiac cath tomorrow Review of Systems Review of Systems: All other systems reviewed and negative except the history above. Exam Narrative: General: alert and comfortable Eyes: EOMI, PERRLA ENNT External ears normal, Neck is supple, no masses, Respiratory systems: Clear to auscultation Cardiovascular S1, S2, normal rhythm, no murmur, rub, or gallop; no thrill or palpable murmurs on palpation. Gastrointestinal: soft, non-tender, and non-distended abdomen with no masses; BS present Skin: no rash, lesions, ulcerations, subcutaneous nodules or induration Musculoskeletal: no abnormality and no tenderness, normal ROM Neurologic: Alert and oriented x3, non focal Mental Status Exam: normal affect Objective Data Vital Signs Vital Signs: Vital Signs - 24 hr 04/07/25 16:00 04/07/25 16:00 04/07/25 16:00 Temperature 98 F Pulse Rate 88 90 Respiratory Rate 16 Blood Pressure 109/75 Pulse Oximetry 99 99 Oxygen Delivery Room Air Fraction of Inspired Oxygen 04/07/25 18:00 04/07/25 20:00 04/07/25 20:00 Temperature 98.0 F Pulse Rate 87 86 Respiratory Rate 16 Blood Pressure 104/71 Pulse Oximetry 100 Oxygen Delivery Room Air Fraction of Inspired Oxygen 04/07/25 20:00 04/07/25 20:52 04/07/25 20:55 Temperature Pulse Rate 86 84 Respiratory Rate 16 Blood Pressure Pulse Oximetry 97 Oxygen Delivery Room Air Fraction of Inspired Oxygen 04/07/25 21:08 04/07/25 22:00 04/07/25 23:58 Temperature 98.0 F Pulse Rate 81 85 83 Respiratory Rate 16 16 Blood Pressure 107/73 Pulse Oximetry 100 Oxygen Delivery Fraction of Inspired Oxygen 04/07/25 23:59 04/08/25 00:00 04/08/25 02:00 Temperature Pulse Rate 79 81 Respiratory Rate Blood Pressure Pulse Oximetry Oxygen Delivery Room Air Fraction of Inspired Oxygen 04/08/25 02:21 04/08/25 02:36 04/08/25 04:00 Temperature Pulse Rate 80 79 Respiratory Rate 16 16 Blood Pressure Pulse Oximetry Oxygen Delivery Room Air Fraction of Inspired Oxygen 04/08/25 04:00 04/08/25 04:00 04/08/25 06:00 Temperature 98.2 F Pulse Rate 84 89 85 Respiratory Rate 16 Blood Pressure 114/78 Pulse Oximetry 100 Oxygen Delivery Fraction of Inspired Oxygen 04/08/25 07:25 04/08/25 08:00 04/08/25 08:00 Temperature 97.9 F Pulse Rate 84 83 Respiratory Rate 14 Blood Pressure 110/81 Pulse Oximetry 98 96 Oxygen Delivery Room Air Fraction of Inspired Oxygen 04/08/25 08:15 04/08/25 08:15 04/08/25 08:32 Temperature Pulse Rate 83 86 Respiratory Rate 28 H 24 H Blood Pressure Pulse Oximetry 96 Oxygen Delivery Room Air Fraction of Inspired Oxygen 04/08/25 10:00 04/08/25 11:36 04/08/25 12:00 Temperature 98 F Pulse Rate 97 92 Respiratory Rate 18 Blood Pressure 107/65 Pulse Oximetry 99 99 Oxygen Delivery Room Air Fraction of Inspired Oxygen 04/08/25 12:00 04/08/25 13:17 04/08/25 14:00 Temperature Pulse Rate 89 83 Respiratory Rate Blood Pressure 107/68 Pulse Oximetry Oxygen Delivery Fraction of Inspired Oxygen 04/08/25 14:03 04/08/25 14:03 04/08/25 14:16 Temperature Pulse Rate 82 83 Respiratory Rate 24 H 24 H Blood Pressure Pulse Oximetry 99 Oxygen Delivery Room Air Fraction of Inspired Oxygen 04/08/25 15:31 Temperature 98.2 F Pulse Rate 93 Respiratory Rate 18 Blood Pressure 104/58 L Pulse Oximetry 99 Oxygen Delivery Fraction of Inspired Oxygen Intake/Output Intake/Output: Intake & Output 04/05/25 04/06/25 04/07/25 04/08/25 23:59 23:59 23:59 23:59 Intake Total 735 716 4673 1100 Output Total 225 700 Balance 291 786 5454 400 Meds/Results Medications: Active Medications Generic Name Dose Route Start Last Admin Trade Name Freq PRN Reason Stop Dose Admin Acetaminophen 650 mg 04/05/25 09:54 Acetaminophen 325 Mg Tablet PO Q4H PRN Mild Pain (1-3) or Fever Alprazolam 0.5 mg 04/07/25 19:39 04/07/25 20:43 Alprazolam (*Crx) 0.5 Mg Tablet PO 0.5 mg TID PRN Administration Anxiety Calcium Carbonate 200 mg 04/05/25 18:19 04/06/25 16:06 Calcium Carbonate (Tums) 500 Mg (200 Mg Elemental) PO 200 mg Q6H PRN Administration Indigestion Carvedilol 6.25 mg 04/08/25 21:00 Carvedilol 6.25 Mg Tablet PO Q12HR GABY Guaifenesin 1,200 mg 04/07/25 21:00 04/08/25 09:33 Guaifenesin 12 Hr 600 Mg Tabcr PO Not Given Q12HR GABY Ceftriaxone Sodium 1 gm in 50 mls @ 100 mls/hr 04/06/25 09:00 04/08/25 10:03 Rocephin 1 Gm/Ns 50 Ml IVPB Infused Q24H GABY Infusion Doxycycline Hyclate 100 mg in 100 mls @ 100 mls/hr 04/05/25 21:00 04/08/25 10:32 Vibramycin 100 Mg/Ns 100 Ml IVPB Infused Q12H GABY Infusion Levofloxacin/Dextrose 750 mg in 150 mls @ 100 mls/hr 04/05/25 16:00 04/07/25 19:31 Levaquin 750 Mg/D5w 150 Ml IVPB Infused Q24H GABY Infusion Ipratropium [place] 0.5 mg 04/06/25 02:00 04/08/25 14:03 Ipratropium Br 0.02% Inh Soln 0.5 Mg/2.5 Ml Vial INHALATION 0.5 mg Q6HRT GABY Administration Levalbuterol HCl 1.25 mg 04/06/25 02:00 04/08/25 14:03 Levalbuterol Neb 1.25 Mg/3 Ml INHALATION 1.25 mg Q6HRT GABY Administration Sacubitril/Valsartan 1 tab 04/07/25 21:00 04/08/25 09:32 Sacubitril/Valsartan 24-26 Mg Tablet PO 1 tab Q12HR GABY Administration Spironolactone 25 mg 04/08/25 10:30 04/08/25 11:36 Spironolactone 25 Mg Tablet PO 25 mg QAM GABY Administration Radiology Results: ITS Impressions Chest X-Ray 04/05/25 08:27 IMPRESSION: Early infiltrate suspected within the right upper lobe. Chest CTA 04/05/25 08:36 IMPRESSION: No pulmonary embolus. No thoracic aortic dissection. Multifocal infiltrates versus pulmonary edema affecting the right upper middle and lower lobes and left lower lobe. Mediastinal, hilar and upper abdominal lymphadenopathy is also detected, most likely reactive, but a systemic abnormality cannot be excluded based on the CT appearance. The lack of axillary lymphadenopathy makes the possibility of a systemic abnormality less likely. Labs Labs: Laboratory Results - last 24 hr 04/08/25 03:57 WBC 5.0 RBC 5.28 Hgb 14.9 Hct 44.8 MCV 84.8 MCH 28.2 MCHC 33.3 RDW 13.7 Plt Count 220 MPV 11.1 H Immature Gran % (Auto) 0.4 Neut % (Auto) 56.8 Lymph % (Auto) 27.7 [place] % (Auto) 10.1 H Eos % (Auto) 4.4 Baso % (Auto) 0.6 Lymph # (Auto) 1.37 [place] # (Auto) 0.5 Eos # (Auto) 0.2 Baso # (Auto) 0.0 Abs Immat Gran (auto) 0.02 Absolute Neuts (auto) 2.8 Absolute Nucleated RBC 0.000 Nucleated RBC % 0.0 Sodium 137 Potassium 3.6 Chloride 104 Carbon Dioxide 25 Anion Gap 8 BUN 8 L Creatinine 0.73 Estim Creat Clear Calc 112 Estimated GFR > 60 Glucose 98 Calcium 8.8 Magnesium 1.9 Total Bilirubin 1.3 AST 42 ALT 23 Alkaline Phosphatase 77 Total Protein 7.0 Albumin 3.8
[2025-04-08] MEDS: levoFLOXacin 750 MG/D5W 150 ML 750 MG/150 ML BAG 100 MG IVPB (15:58)
[2025-04-08] MEDS: carvediloL 6.25 MG TABLET PO (20:57)
[2025-04-08] MEDS: ALPRAZolam (*CRX) 0.5 MG TABLET PO (21:00)
[2025-04-09] VITALS (24 sets, daily range): BP systolic 90–108; BP diastolic 55–70; PULSE 73–88; RESP 14–20; TEMP 36.5–37; O2SAT 97–100
[2025-04-09] MEDS: IPRATROPIUM BR 0.02% INH SOLN 0.5 MG/2.5 ML VIAL INHALATION ×3 (02:23→20:17)
[2025-04-09] MEDS: LEVALBUTEROL NEB 1.25 MG/3 ML INHALATION ×3 (02:23→20:17)
[2025-04-09 04:35] LABS: Basophils Percent Auto 0.7 % (0.2-1.2); Eosinophils Absolute Auto 0.5 K/mm3 (0-0.3); Eosinophils Percent Auto 8.2 % (0-4.4); Hematocrit 45.9 % (42.0-52.0); Hemoglobin 15.2 g/dL (14.0-18.0); Immature Granulocyte Absolute 0.03 K/mm3 (0.00-0.031); Immature Granulocyte Percent A 0.5 % (0-0.5); Lymphocytes Absolute Auto 1.87 K/mm3 (0.9-3.2); Lymphocytes Percent Auto 33.2 % (18.3-44.2); Mean Corpuscular HGB Conc 33.1 g/dl (32-36); Mean Corpuscular Hemoglobin 28.3 pg (26-34); Mean Corpuscular Volume 85.3 fl (80-100); Mean Platelet Volume 10.9 fl (7.4-10.4); Monocytes Absolute Auto 0.5 K/mm3 (0.1-0.6); Monocytes Percent Auto 9.2 % (2.6-8.5); Neutrophils Absolute Auto 2.7 K/mm3 (1.3-6.7); Neutrophils Percent Auto 48.2 % (45.5-73.1); Platelet Count Result 255 k/mm3 (150-375); Red Blood Count 5.38 M/mm3 (4.6-6.20); Red Cell Distribution Width 13.8 % (11.5-14.5); White Blood Count 5.6 K/mm3 (4.5-10.0)
[2025-04-09 04:52] LABS: Alanine Aminotransferase 27 U/L (6-50); Albumin Level 3.7 g/dL (3.5-5.1); Alkaline Phosphatase 77 U/L (38-126); Anion Gap 9 mmol/L (4-12); Aspartate Amino Transferase 38 U/L (17-59); Blood Urea Nitrogen 8 mg/dL (9-20); Calcium 8.9 mg/dL (8.4-10.2); Carbon Dioxide 22 mmol/L (22-30); Chloride 105 mmol/L (98-107); Estimated CRCL calculation 115 ml/min; Estimated Glomerular Filt Rate > 60; Glucose 97 mg/dL (65-110); Magnesium 1.8 mg/dL (1.6-2.3); Potassium 3.9 mmol/L (3.4-5.0); Sodium 136 mmol/L (137-145)
[2025-04-09 05:17] LABS: Large Platelets Present; Platelet Estimate Adequate (Adequate)
[2025-04-09 05:19] LABS: Burr Cells 1+; Schistocytes None Seen; Smudge Cells PRESENT
[2025-04-09] MEDS: SPIRONOLACTONE 25 MG TABLET PO (08:33)
[2025-04-09] MEDS: SACUBITRIL/VALSARTAN 24-26 MG TABLET 1 TAB PO ×2 (08:33→21:17)
[2025-04-09] MEDS: carvediloL 6.25 MG TABLET PO ×2 (08:33→21:16)
[2025-04-09] MEDS: DOXYCYCLINE 100 MG/NS 100 ML 100 MG/100 ML BAG IVPB (08:34)
--- NOTE | 2025-04-09 10:09 | PM.IMPN ---
Progress Note: A&P Assessment and Plan (1) Multifocal pneumonia: Code(s): J18.9 - Pneumonia, unspecified organism Status: Acute Plan Community-acquired pneumonia CT chest reviewed Blood cultures, on Levaquin. Monitor. Cardiomegaly and MR ECHO EF 25% CT Chest no pleural effusion or edema tolerating Entresto and Spironolactone per cards For Cardiac cath on Thursday Monitor Hypersomnolence Continue Adderall Patient follows Neurology outpatient. DVT prophylaxis subQ Lovenox Full code Subjective Date/time seen: 04/09/25 10:09 Interval history: Comfortable at bedside for Cardiac cath tomorrow Review of Systems Review of Systems: All other systems reviewed and negative except the history above. Exam Narrative: General: alert and comfortable Eyes: EOMI, PERRLA ENNT External ears normal, Neck is supple, no masses, Respiratory systems: Clear to auscultation Cardiovascular S1, S2, normal rhythm, no murmur, rub, or gallop; no thrill or palpable murmurs on palpation. Gastrointestinal: soft, non-tender, and non-distended abdomen with no masses; BS present Skin: no rash, lesions, ulcerations, subcutaneous nodules or induration Musculoskeletal: no abnormality and no tenderness, normal ROM Neurologic: Alert and oriented x3, non focal Mental Status Exam: normal affect Objective Data Vital Signs Vital Signs: Vital Signs - 24 hr 04/08/25 11:36 04/08/25 12:00 04/08/25 12:00 Temperature 98 F Pulse Rate 92 89 Respiratory Rate 18 Blood Pressure 107/65 Pulse Oximetry 99 99 Oxygen Delivery Room Air Fraction of Inspired Oxygen 04/08/25 13:17 04/08/25 14:00 04/08/25 14:03 Temperature Pulse Rate 83 Respiratory Rate Blood Pressure 107/68 Pulse Oximetry 99 Oxygen Delivery Room Air Fraction of Inspired Oxygen 21 04/08/25 14:03 04/08/25 14:16 04/08/25 15:31 Temperature 98.2 F Pulse Rate 82 83 93 Respiratory Rate 24 H 24 H 18 Blood Pressure 104/58 L Pulse Oximetry 99 Oxygen Delivery Fraction of Inspired Oxygen 04/08/25 16:00 04/08/25 16:00 04/08/25 18:00 Temperature Pulse Rate 87 94 Respiratory Rate Blood Pressure Pulse Oximetry 99 Oxygen Delivery Room Air Fraction of Inspired Oxygen 04/08/25 20:00 04/08/25 20:00 04/08/25 20:30 Temperature 98.2 F Pulse Rate 88 88 88 Respiratory Rate 16 18 Blood Pressure 105/70 Pulse Oximetry 99 Oxygen Delivery Fraction of Inspired Oxygen 04/08/25 20:34 04/08/25 20:45 04/08/25 20:57 Temperature Pulse Rate 88 91 Respiratory Rate 18 Blood Pressure Pulse Oximetry 99 Oxygen Delivery Room Air Fraction of Inspired Oxygen 21 04/08/25 22:00 04/09/25 00:00 04/09/25 00:00 Temperature 97.7 F Pulse Rate 84 76 78 Respiratory Rate 16 Blood Pressure 98/65 L Pulse Oximetry 98 Oxygen Delivery Fraction of Inspired Oxygen 04/09/25 02:00 04/09/25 02:23 04/09/25 02:35 Temperature Pulse Rate 73 88 88 Respiratory Rate 18 18 Blood Pressure Pulse Oximetry Oxygen Delivery Fraction of Inspired Oxygen 04/09/25 04:00 04/09/25 04:00 04/09/25 04:00 Temperature 97.9 F Pulse Rate 79 77 Respiratory Rate 16 Blood Pressure 101/58 L Pulse Oximetry 97 Oxygen Delivery Room Air Fraction of Inspired Oxygen 04/09/25 06:00 04/09/25 08:00 04/09/25 08:00 Temperature 98.2 F Pulse Rate 78 81 Respiratory Rate 14 Blood Pressure 108/70 Pulse Oximetry 99 99 Oxygen Delivery Room Air Fraction of Inspired Oxygen 04/09/25 08:28 04/09/25 08:28 04/09/25 08:33 Temperature Pulse Rate 80 80 81 Respiratory Rate 18 20 Blood Pressure Pulse Oximetry 98 Oxygen Delivery Room Air Fraction of Inspired Oxygen 04/09/25 08:40 Temperature Pulse Rate 83 Respiratory Rate 18 Blood Pressure Pulse Oximetry Oxygen Delivery Fraction of Inspired Oxygen Intake/Output Intake/Output: Intake & Output 04/06/25 04/07/25 04/08/25 04/09/25 23:59 23:59 23:59 23:59 Intake Total 760 1800 2140 400 Output Total 225 1550 1000 Balance 760 1575 590 -600 Meds/Results Medications: Active Medications Generic Name Dose Route Start Last Admin Trade Name Freq PRN Reason Stop Dose Admin Acetaminophen 650 mg 04/05/25 09:54 Acetaminophen 325 Mg Tablet PO Q4H PRN Mild Pain (1-3) or Fever Alprazolam 0.5 mg 04/07/25 19:39 04/08/25 21:00 Alprazolam (*Crx) 0.5 Mg Tablet PO 0.5 mg TID PRN Administration Anxiety Calcium Carbonate 200 mg 04/05/25 18:19 04/06/25 16:06 Calcium Carbonate (Tums) 500 Mg (200 Mg Elemental) PO 200 mg Q6H PRN Administration Indigestion Carvedilol 6.25 mg 04/08/25 21:00 04/09/25 08:33 Carvedilol 6.25 Mg Tablet PO 6.25 mg Q12HR GABY Administration Guaifenesin 1,200 mg 04/07/25 21:00 04/09/25 08:41 Guaifenesin 12 Hr 600 Mg Tabcr PO Not Given Q12HR GABY Ceftriaxone Sodium 1 gm in 50 mls @ 100 mls/hr 04/06/25 09:00 04/09/25 08:33 Rocephin 1 Gm/Ns 50 Ml IVPB 100 mls/hr Q24H GABY Administration Doxycycline Hyclate 100 mg in 100 mls @ 100 mls/hr 04/05/25 21:00 04/09/25 08:34 Vibramycin 100 Mg/Ns 100 Ml IVPB 100 mls/hr Q12H GABY Administration Levofloxacin/Dextrose 750 mg in 150 mls @ 100 mls/hr 04/05/25 16:00 04/08/25 17:28 Levaquin 750 Mg/D5w 150 Ml IVPB Infused Q24H GABY Infusion Ipratropium [place] 0.5 mg 04/06/25 02:00 04/09/25 08:30 Ipratropium Br 0.02% Inh Soln 0.5 Mg/2.5 Ml Vial INHALATION 0.5 mg Q6HRT GABY Administration Levalbuterol HCl 1.25 mg 04/06/25 02:00 04/09/25 08:30 Levalbuterol Neb 1.25 Mg/3 Ml INHALATION 1.25 mg Q6HRT GABY Administration Sacubitril/Valsartan 1 tab 04/07/25 21:00 04/09/25 08:33 Sacubitril/Valsartan 24-26 Mg Tablet PO 1 tab Q12HR GABY Administration Spironolactone 25 mg 04/08/25 10:30 04/09/25 08:33 Spironolactone 25 Mg Tablet PO 25 mg QAM GABY Administration Radiology Results: ITS Impressions Chest X-Ray 04/05/25 08:27 IMPRESSION: Early infiltrate suspected within the right upper lobe. Chest CTA 04/05/25 08:36 IMPRESSION: No pulmonary embolus. No thoracic aortic dissection. Multifocal infiltrates versus pulmonary edema affecting the right upper middle and lower lobes and left lower lobe. Mediastinal, hilar and upper abdominal lymphadenopathy is also detected, most likely reactive, but a systemic abnormality cannot be excluded based on the CT appearance. The lack of axillary lymphadenopathy makes the possibility of a systemic abnormality less likely. Labs Labs: Laboratory Results - last 24 hr 04/09/25 04:06 WBC 5.6 RBC 5.38 Hgb 15.2 Hct 45.9 MCV 85.3 MCH 28.3 MCHC 33.1 RDW 13.8 Plt Count 255 MPV 10.9 H Immature Gran % (Auto) 0.5 Neut % (Auto) 48.2 Lymph % (Auto) 33.2 [place] % (Auto) 9.2 H Eos % (Auto) 8.2 H Baso % (Auto) 0.7 Lymph # (Auto) 1.87 [place] # (Auto) 0.5 Eos # (Auto) 0.5 H Baso # (Auto) 0.0 Abs Immat Gran (auto) 0.03 Absolute Neuts (auto) 2.7 Absolute Nucleated RBC 0.000 Band Neutrophils % Not Reportable Nucleated RBC % 0.0 [place] Cells Present Platelet Estimate Adequate Large Platelets Present [place] Cells 1+ Schistocytes None seen Sodium 136 L Potassium 3.9 Chloride 105 Carbon Dioxide 22 Anion Gap 9 BUN 8 L Creatinine 0.71 Estim Creat Clear Calc 115 Estimated GFR > 60 Glucose 97 Calcium 8.9 Magnesium 1.8 Total Bilirubin 1.0 AST 38 ALT 27 Alkaline Phosphatase 77 Total Protein 7.0 Albumin 3.7
--- NOTE | 2025-04-09 11:17 | P.PNCA_ITS ---
Progress Note: A&P Assessment and Plan (1) Cardiomyopathy: Code(s): I42.9 - Cardiomyopathy, unspecified Status: Acute Plan 44-year-old man with newly diagnosed systolic heart failure. Guideline directed medical therapy is being initiated and he is tolerating current doses of Entresto, carvedilol and spironolactone without difficulty. Will check BMP tomorrow morning and plan for left heart catheterization tomorrow to ensure that ischemic heart disease is not a concern. This is highly unlikely. Amphetamine should not be continued in my opinion Adria Macias MD [facility] Subjective Date/time seen: Date of service: 04/09/25 11:17 Interval history: Follow-up visit in this 44-year-old man with: Newly diagnosed cardiomyopathy with low ejection fraction and shortness of breath. Patient with mild pulmonary congestion on chest x-ray on admission. So far tolerating Entresto without any difficulty with hypotension after the 1st 2 doses. Long conversation with the patient and his significant other regarding additional medical therapy to be started to complete GDMT and the need to disc uss timing of angiography to rule out ischemic heart disease. 04/09/2025: Patient is asymptomatic. No difficulty with hypotension and now is on starting doses of Entresto, carvedilol and spironolactone. Family wanted to discuss the patient's prescription for amphetamine. I told them that I would favor him not continuing amphetamine given his cardiomyopathy diagnosed. Exam Const: General: comfortable, no acute distress, alert and awake Orientation/consciousness: patient oriented x3 Other: Pleasant healthy-appearing young man no distress HENMT: Head: normal to inspection Mouth: Yes moist mucous membranes Eyes: General: appearance normal, both eyes and all related structures Sclera: sclerae normal Pupils: Equal, round and reactive pupils present Neck: Neck: normal visual inspection, supple and no JVD Resp: Effort & Inspection: normal respiratory effort Auscultation: clear to auscultation bilaterally, crackles and wheezes expiratory wheezes, left lower and posterior Cardio: Rate: regular rate and tachycardic Rhythm: regular rhythm Heart sounds: S1 normal heart sound present, S2 normal heart sound present and no murmurs GI: Auscultation: normal bowel sounds Skin: General skin exam: normal color Neuro: General: patient oriented x3 Cranial nerves: Yes Equal, round and reactive pupils present Other: Normal cognition Extrem: General: normal to inspection Other: No edema, adequate perfusion Psych: Appearance: grossly normal Mental Status: mental status grossly normal Objective Data Vital Signs Vital Signs: Vital Signs - 24 hr 04/08/25 11:36 04/08/25 12:00 04/08/25 12:00 Temperature 36.6 C Pulse Rate 92 89 Respiratory Rate 18 Blood Pressure 107/65 Pulse Oximetry 99 99 Oxygen Delivery Room Air Fraction of Inspired Oxygen 04/08/25 13:17 04/08/25 14:00 04/08/25 14:03 Temperature Pulse Rate 83 Respiratory Rate Blood Pressure 107/68 Pulse Oximetry 99 Oxygen Delivery Room Air Fraction of Inspired Oxygen 21 04/08/25 14:03 04/08/25 14:16 04/08/25 15:31 Temperature 36.8 C Pulse Rate 82 83 93 Respiratory Rate 24 H 24 H 18 Blood Pressure 104/58 L Pulse Oximetry 99 Oxygen Delivery Fraction of Inspired Oxygen 04/08/25 16:00 04/08/25 16:00 04/08/25 18:00 Temperature Pulse Rate 87 94 Respiratory Rate Blood Pressure Pulse Oximetry 99 Oxygen Delivery Room Air Fraction of Inspired Oxygen 04/08/25 20:00 04/08/25 20:00 04/08/25 20:30 Temperature 36.8 C Pulse Rate 88 88 88 Respiratory Rate 16 18 Blood Pressure 105/70 Pulse Oximetry 99 Oxygen Delivery Fraction of Inspired Oxygen 04/08/25 20:34 04/08/25 20:45 04/08/25 20:57 Temperature Pulse Rate 88 91 Respiratory Rate 18 Blood Pressure Pulse Oximetry 99 Oxygen Delivery Room Air Fraction of Inspired Oxygen 04/08/25 22:00 04/09/25 00:00 04/09/25 00:00 Temperature 36.5 C Pulse Rate 84 76 78 Respiratory Rate 16 Blood Pressure 98/65 L Pulse Oximetry 98 Oxygen Delivery Fraction of Inspired Oxygen 04/09/25 02:00 04/09/25 02:23 04/09/25 02:35 Temperature Pulse Rate 73 88 88 Respiratory Rate 18 18 Blood Pressure Pulse Oximetry Oxygen Delivery Fraction of Inspired Oxygen 04/09/25 04:00 04/09/25 04:00 04/09/25 04:00 Temperature 36.6 C Pulse Rate 79 77 Respiratory Rate 16 Blood Pressure 101/58 L Pulse Oximetry 97 Oxygen Delivery Room Air Fraction of Inspired Oxygen 04/09/25 06:00 04/09/25 08:00 04/09/25 08:00 Temperature 36.8 C Pulse Rate 78 81 Respiratory Rate 14 Blood Pressure 108/70 Pulse Oximetry 99 99 Oxygen Delivery Room Air Fraction of Inspired Oxygen 04/09/25 08:28 04/09/25 08:28 04/09/25 08:33 Temperature Pulse Rate 80 80 81 Respiratory Rate 18 20 Blood Pressure Pulse Oximetry 98 Oxygen Delivery Room Air Fraction of Inspired Oxygen 21 04/09/25 08:40 Temperature Pulse Rate 83 Respiratory Rate 18 Blood Pressure Pulse Oximetry Oxygen Delivery Fraction of Inspired Oxygen Intake/Output Intake/Output: Intake & Output 04/06/25 04/07/25 04/08/25 04/09/25 23:59 23:59 23:59 23:59 Intake Total 760 1800 2140 400 Output Total 225 1550 1000 Balance 760 1575 590 -600 Meds/Results Medications: Active Medications Generic Name Dose Route Start Last Admin Trade Name Freq PRN Reason Stop Dose Admin Acetaminophen 650 mg 04/05/25 09:54 Acetaminophen 325 Mg Tablet PO Q4H PRN Mild Pain (1-3) or Fever Alprazolam 0.5 mg 04/07/25 19:39 04/08/25 21:00 Alprazolam (*Crx) 0.5 Mg Tablet PO 0.5 mg TID PRN Administration Anxiety Calcium Carbonate 200 mg 04/05/25 18:19 04/06/25 16:06 Calcium Carbonate (Tums) 500 Mg (200 Mg Elemental) PO 200 mg Q6H PRN Administration Indigestion Carvedilol 6.25 mg 04/08/25 21:00 04/09/25 08:33 Carvedilol 6.25 Mg Tablet PO 6.25 mg Q12HR GABY Administration Guaifenesin 1,200 mg 04/07/25 21:00 04/09/25 08:41 Guaifenesin 12 Hr 600 Mg Tabcr PO Not Given Q12HR GABY Ceftriaxone Sodium 1 gm in 50 mls @ 100 mls/hr 04/06/25 09:00 04/09/25 08:33 Rocephin 1 Gm/Ns 50 Ml IVPB 100 mls/hr Q24H GABY Administration Doxycycline Hyclate 100 mg in 100 mls @ 100 mls/hr 04/05/25 21:00 04/09/25 08:34 Vibramycin 100 Mg/Ns 100 Ml IVPB 100 mls/hr Q12H GABY Administration Levofloxacin/Dextrose 750 mg in 150 mls @ 100 mls/hr 04/05/25 16:00 04/08/25 17:28 Levaquin 750 Mg/D5w 150 Ml IVPB Infused Q24H GABY Infusion Ipratropium [place] 0.5 mg 04/06/25 02:00 04/09/25 08:30 Ipratropium Br 0.02% Inh Soln 0.5 Mg/2.5 Ml Vial INHALATION 0.5 mg Q6HRT GABY Administration Levalbuterol HCl 1.25 mg 04/06/25 02:00 04/09/25 08:30 Levalbuterol Neb 1.25 Mg/3 Ml INHALATION 1.25 mg Q6HRT GABY Administration Sacubitril/Valsartan 1 tab 04/07/25 21:00 04/09/25 08:33 Sacubitril/Valsartan 24-26 Mg Tablet PO 1 tab Q12HR GABY Administration Spironolactone 25 mg 04/08/25 10:30 04/09/25 08:33 Spironolactone 25 Mg Tablet PO 25 mg QAM GABY Administration Radiology Results: ITS Impressions Chest X-Ray 04/05/25 08:27 IMPRESSION: Early infiltrate suspected within the right upper lobe. Chest CTA 04/05/25 08:36 IMPRESSION: No pulmonary embolus. No thoracic aortic dissection. Multifocal infiltrates versus pulmonary edema affecting the right upper middle and lower lobes and left lower lobe. Mediastinal, hilar and upper abdominal lymphadenopathy is also detected, most likely reactive, but a systemic abnormality cannot be excluded based on the CT appearance. The lack of axillary lymphadenopathy makes the possibility of a systemic abnormality less likely. Labs Labs: Laboratory Results - last 24 hr 04/09/25 04:06 WBC 5.6 RBC 5.38 Hgb 15.2 Hct 45.9 MCV 85.3 MCH 28.3 MCHC 33.1 RDW 13.8 Plt Count 255 MPV 10.9 H Immature Gran % (Auto) 0.5 Neut % (Auto) 48.2 Lymph % (Auto) 33.2 [place] % (Auto) 9.2 H Eos % (Auto) 8.2 H Baso % (Auto) 0.7 Lymph # (Auto) 1.87 [place] # (Auto) 0.5 Eos # (Auto) 0.5 H Baso # (Auto) 0.0 Abs Immat Gran (auto) 0.03 Absolute Neuts (auto) 2.7 Absolute Nucleated RBC 0.000 Band Neutrophils % Not Reportable Nucleated RBC % 0.0 [place] Cells Present Platelet Estimate Adequate Large Platelets Present [place] Cells 1+ Schistocytes None seen Sodium 136 L Potassium 3.9 Chloride 105 Carbon Dioxide 22 Anion Gap 9 BUN 8 L Creatinine 0.71 Estim Creat Clear Calc 115 Estimated GFR > 60 Glucose 97 Calcium 8.9 Magnesium 1.8 Total Bilirubin 1.0 AST 38 ALT 27 Alkaline Phosphatase 77 Total Protein 7.0 Albumin 3.7
--- NOTE | 2025-04-09 13:21 | PCRCNOTE ---
Patient wanted to rest at this time and refused his 1400 breathing treatment. The RN is aware.
[2025-04-09] MEDS: SACCHAROMYCES BOULARDII 250 MG CAPSULE PO (17:10)
[2025-04-09] MEDS: CEFDINIR 300 MG CAPSULE PO (21:16)
[2025-04-09] MEDS: DOXYCYCLINE HYCLATE 100 MG TABLET PO (21:17)
[2025-04-09] MEDS: guaiFENesin 12 HR 600 MG TABCR 1200 MG PO (21:18)
[2025-04-09] MEDS: ALPRAZolam (*CRX) 0.5 MG TABLET PO (21:24)
[2025-04-10] VITALS (30 sets, daily range): BP systolic 88–110; BP diastolic 58–78; PULSE 60–92; RESP 12–26; TEMP 36.6–36.8; O2SAT 92–100
[2025-04-10] MEDS: IPRATROPIUM BR 0.02% INH SOLN 0.5 MG/2.5 ML VIAL INHALATION ×2 (02:33→07:38)
[2025-04-10] MEDS: LEVALBUTEROL NEB 1.25 MG/3 ML INHALATION ×2 (02:34→07:38)
[2025-04-10 05:00] LABS: Anion Gap 5 mmol/L (4-12); Blood Urea Nitrogen 13 mg/dL (9-20); Calcium 8.9 mg/dL (8.4-10.2); Carbon Dioxide 25 mmol/L (22-30); Chloride 105 mmol/L (98-107); Estimated CRCL calculation 100 ml/min; Estimated Glomerular Filt Rate > 60; Glucose 102 mg/dL (65-110); Potassium 4.2 mmol/L (3.4-5.0); Sodium 135 mmol/L (137-145)
--- NOTE | 2025-04-10 08:41 | P.PNCA_ITS ---
Progress Note: A&P Assessment and Plan (1) Cardiomyopathy: Code(s): I42.9 - Cardiomyopathy, unspecified Status: Acute (2) Mitral regurgitation: Code(s): I34.0 - Nonrheumatic mitral (valve) insufficiency Status: Acute (3) Multifocal pneumonia: Code(s): J18.9 - Pneumonia, unspecified organism Status: Acute Plan 44-year-old man presented with shortness of breath found to have new onset systolic heart failure with moderate mitral regurgitation and dilated left atrium New onset systolic heart failure -patient states that he will discontinue Adderall -given his borderline blood pressures, we will switch his carvedilol to metoprolol succinate 25 mg p.o. daily -we will also add Jardiance 10 mg p.o. daily -we will define his coronary anatomy today Moderate mitral regurgitation -will rule out ischemic causes today -if no significant CAD, likely secondary to annular dilatation and LV dysfunction -can reassess in 3-6 months after GDMT initiation Pneumonia -currently on antibiotics Subjective Date/time seen: 04/10/25 08:41 Interval history: No shortness of breath. Denies any chest discomfort. Has some coughing when he lays flat. Review of Systems Cardiovascular: Cardiovascular: Reports as per HPI Respiratory: Respiratory: Reports as per HPI Exam Const: General: comfortable HENMT: Mouth: Yes dry mucous membranes Eyes: EOM: EOMs intact bilaterally Neck: Neck: no JVD Resp: Auscultation: rales Cardio: Rate: regular rate Rhythm: regular rhythm GI: GI Palp: Yes Soft to palpation Neuro: Speech: normal speech Extrem: General: no pedal edema Objective Data Vital Signs Vital Signs: Vital Signs - 24 hr 04/09/25 10:00 04/09/25 11:40 04/09/25 12:00 Temperature 36.5 C Pulse Rate 75 80 Respiratory Rate 14 Blood Pressure 101/67 Pulse Oximetry 100 100 Oxygen Delivery Room Air Fraction of Inspired Oxygen 04/09/25 12:00 04/09/25 14:00 04/09/25 15:26 Temperature 36.6 C Pulse Rate 78 87 81 Respiratory Rate 15 Blood Pressure 90/55 L Pulse Oximetry 100 Oxygen Delivery Fraction of Inspired Oxygen 04/09/25 16:00 04/09/25 16:00 04/09/25 16:16 Temperature Pulse Rate 76 Respiratory Rate Blood Pressure 90/70 L Pulse Oximetry 100 Oxygen Delivery Room Air Fraction of Inspired Oxygen 04/09/25 18:00 04/09/25 18:44 04/09/25 20:00 Temperature 37.0 C Pulse Rate 79 86 85 Respiratory Rate 18 18 Blood Pressure 108/70 Pulse Oximetry 100 100 Oxygen Delivery Room Air Fraction of Inspired Oxygen 04/09/25 20:00 04/09/25 20:00 04/09/25 20:17 Temperature Pulse Rate 80 80 79 Respiratory Rate 16 20 Blood Pressure Pulse Oximetry 100 98 Oxygen Delivery Room Air Fraction of Inspired Oxygen 21 04/09/25 20:17 04/09/25 20:30 04/09/25 21:16 Temperature Pulse Rate 79 86 85 Respiratory Rate 20 18 Blood Pressure Pulse Oximetry Oxygen Delivery Fraction of Inspired Oxygen 04/09/25 23:00 04/10/25 00:00 04/10/25 00:00 Temperature Pulse Rate 78 73 73 Respiratory Rate 16 Blood Pressure Pulse Oximetry 100 Oxygen Delivery Room Air Fraction of Inspired Oxygen 04/10/25 00:00 04/10/25 02:33 04/10/25 02:33 Temperature 36.6 C Pulse Rate 78 74 74 Respiratory Rate 16 18 18 Blood Pressure 96/59 L Pulse Oximetry 96 96 Oxygen Delivery Room Air Fraction of Inspired Oxygen 21 04/10/25 02:45 04/10/25 03:00 04/10/25 04:00 Temperature Pulse Rate 75 81 80 Respiratory Rate 16 16 Blood Pressure Pulse Oximetry 96 Oxygen Delivery Room Air Fraction of Inspired Oxygen 04/10/25 04:00 04/10/25 07:25 04/10/25 07:40 Temperature 36.8 C Pulse Rate 80 84 Respiratory Rate 12 Blood Pressure 88/59 L Pulse Oximetry 99 98 Oxygen Delivery Room Air Fraction of Inspired Oxygen 04/10/25 07:40 04/10/25 07:52 Temperature Pulse Rate 79 81 Respiratory Rate 18 18 Blood Pressure Pulse Oximetry Oxygen Delivery Fraction of Inspired Oxygen Intake/Output Intake/Output: Intake & Output 04/07/25 04/08/25 04/09/25 04/10/25 23:59 23:59 23:59 23:59 Intake Total 1800 2140 2130 Output Total 225 1550 1000 Balance 7075 432 7485 Meds/Results Medications: Active Medications Generic Name Dose Route Start Last Admin Trade Name Freq PRN Reason Stop Dose Admin Acetaminophen 650 mg 04/05/25 09:54 Acetaminophen 325 Mg Tablet PO Q4H PRN Mild Pain (1-3) or Fever Alprazolam 0.5 mg 04/07/25 19:39 04/09/25 21:24 Alprazolam (*Crx) 0.5 Mg Tablet PO 0.5 mg TID PRN Administration Anxiety Calcium Carbonate 200 mg 04/05/25 18:19 04/06/25 16:06 Calcium Carbonate (Tums) 500 Mg (200 Mg Elemental) PO 200 mg Q6H PRN Administration Indigestion Carvedilol 6.25 mg 04/08/25 21:00 04/09/25 21:16 Carvedilol 6.25 Mg Tablet PO 6.25 mg Q12HR GABY Administration Cefdinir 300 mg 04/09/25 21:00 04/09/25 21:16 Cefdinir 300 Mg Capsule PO 300 mg Q12HR GABY Administration Doxycycline Hyclate 100 mg 04/09/25 21:00 04/09/25 21:17 Doxycycline Hyclate 100 Mg Tablet PO 100 mg Q12HR GABY Administration Guaifenesin 1,200 mg 04/07/25 21:00 04/09/25 21:18 Guaifenesin 12 Hr 600 Mg Tabcr PO 1,200 mg Q12HR GABY Administration Ipratropium [place] 0.5 mg 04/06/25 02:00 04/10/25 07:38 Ipratropium Br 0.02% Inh Soln 0.5 Mg/2.5 Ml Vial INHALATION 0.5 mg Q6HRT GABY Administration Levalbuterol HCl 1.25 mg 04/06/25 02:00 04/10/25 07:38 Levalbuterol Neb 1.25 Mg/3 Ml INHALATION 1.25 mg Q6HRT GABY Administration Levofloxacin 750 mg 04/10/25 09:00 Levofloxacin 750 Mg Tablet PO DAILY GABY Saccharomyces Boulardii 250 mg 04/09/25 17:00 04/09/25 17:10 Saccharomyces [place]oulardii 250 Mg Capsule PO 250 mg BID GABY Administration Sacubitril/Valsartan 1 tab 04/07/25 21:00 04/09/25 21:17 Sacubitril/Valsartan 24-26 Mg Tablet PO 1 tab Q12HR GABY Administration Spironolactone 25 mg 04/08/25 10:30 04/09/25 08:33 Spironolactone 25 Mg Tablet PO 25 mg QAM GABY Administration Radiology Results: ITS Impressions Chest X-Ray 04/05/25 08:27 IMPRESSION: Early infiltrate suspected within the right upper lobe. Chest CTA 04/05/25 08:36 IMPRESSION: No pulmonary embolus. No thoracic aortic dissection. Multifocal infiltrates versus pulmonary edema affecting the right upper middle and lower lobes and left lower lobe. Mediastinal, hilar and upper abdominal lymphadenopathy is also detected, most likely reactive, but a systemic abnormality cannot be excluded based on the CT appearance. The lack of axillary lymphadenopathy makes the possibility of a systemic abnormality less likely. Labs Labs: Laboratory Results - last 24 hr 04/10/25 04:09 Sodium 135 L Potassium 4.2 Chloride 105 Carbon Dioxide 25 Anion Gap 5 BUN 13 D Creatinine 0.82 Estim Creat Clear Calc 100 Estimated GFR > 60 Glucose 102 Calcium 8.9
[2025-04-10] MEDS: levoFLOXacin 750 MG TABLET PO (09:01)
[2025-04-10] MEDS: SACUBITRIL/VALSARTAN 24-26 MG TABLET 1 TAB PO (09:01)
[2025-04-10] MEDS: DOXYCYCLINE HYCLATE 100 MG TABLET PO (09:01)
[2025-04-10] MEDS: guaiFENesin 12 HR 600 MG TABCR 1200 MG PO (09:02)
[2025-04-10] MEDS: CEFDINIR 300 MG CAPSULE PO (09:02)
[2025-04-10] MEDS: EMPAGLIFLOZIN 10 MG TABLET PO (09:11)
[2025-04-10] MEDS: METOPROLOL SUCCINATE EXT REL 25 MG TABCR PO (09:11)
--- NOTE | 2025-04-10 10:08 | P.SEDATION_ITS ---
Moderate Sedation Note-Pt Data Patient Data Allergies Allergy/AdvReac Type Severity Reaction Status Date / Time latex Allergy Hives Verified 04/05/25 14:39 Home Medications ?Medication ?Instructions ?Recorded ?Confirmed ?Type ibuprofen 600 mg tablet (IBU) 600 mg PO Q6H PRN pain #20 tabs 03/14/22 04/05/25 Rx dextroamphetamine-amphetamine 10 10 mg PO DAILY 1 month #30 tabs 03/21/25 04/05/25 Rx mg tablet (Adderall) dextroamphetamine-amphetamine ER 25 mg PO DAILY 1 month #30 caps 03/21/25 04/05/25 Rx 25 mg 24hr capsule,extend release (Adderall XR) Current Medications: Active Medications Acetaminophen (Acetaminophen 325 Mg Tablet) 650 mg PO Q4H PRN PRN Reason: Mild Pain (1-3) or Fever Alprazolam (Alprazolam (*Crx) 0.5 Mg Tablet) 0.5 mg PO TID PRN PRN Reason: Anxiety Last Admin: 04/09/25 21:24 Dose: 0.5 mg Calcium Carbonate (Calcium Carbonate (Tums) 500 Mg (200 Mg Elemental)) 200 mg PO Q6H PRN PRN Reason: Indigestion Last Admin: 04/06/25 16:06 Dose: 200 mg Cefdinir (Cefdinir 300 Mg Capsule) 300 mg PO Q12HR [facility] Last Admin: 04/10/25 09:02 Dose: 300 mg Doxycycline Hyclate (Doxycycline Hyclate 100 Mg Tablet) 100 mg PO Q12HR [facility] Last Admin: 04/10/25 09:01 Dose: 100 mg Empagliflozin (Empagliflozin 10 Mg Tablet) 10 mg PO DAILY [facility] Last Admin: 04/10/25 09:11 Dose: 10 mg Guaifenesin (Guaifenesin 12 Hr 600 Mg Tabcr) 1,200 mg PO Q12HR [facility] Last Admin: 04/10/25 09:02 Dose: 1,200 mg Ipratropium [place] (Ipratropium Br 0.02% Inh Soln 0.5 Mg/2.5 Ml Vial) 0.5 mg INHALATION Q6HRT [facility] Last Admin: 04/10/25 07:38 Dose: 0.5 mg Levalbuterol HCl (Levalbuterol Neb 1.25 Mg/3 Ml) 1.25 mg INHALATION Q6HRT [facility] Last Admin: 04/10/25 07:38 Dose: 1.25 mg Levofloxacin (Levofloxacin 750 Mg Tablet) 750 mg PO DAILY [facility] Last Admin: 04/10/25 09:01 Dose: 750 mg Metoprolol Succinate (Metoprolol Succinate Ext Rel 25 Mg Tabcr) 25 mg PO QAM [facility] Last Admin: 04/10/25 09:11 Dose: 25 mg Saccharomyces Boulardii (Saccharomyces Boulardii 250 Mg Capsule) 250 mg PO BID [facility] Last Admin: 04/09/25 17:10 Dose: 250 mg Sacubitril/Valsartan (Sacubitril/Valsartan 24-26 Mg Tablet) 1 tab PO Q12HR [facility] Last Admin: 04/10/25 09:01 Dose: 1 tab Spironolactone (Spironolactone 25 Mg Tablet) 25 mg PO QAM [facility] Last Admin: 04/10/25 08:47 Dose: Not Given Sedation/Anesthesia: No previous sedation/anesthesia problems (including family history). [facility] Past Medical History Medical History Idiopathic hypersomnia Anxiety Depression Family History Family History Mother Diabetes mellitus Grandparent Cancer Grandparent Cancer Social History Social History Smoking status: Former smoker Tobacco type: cigars Smoking end date: 11/09/12 Additional smoking assessment comments: 2003 Alcohol intake: current Drinks per week: 1 Alcohol use details: 1 deshawn a week Substance use: unknown Do You Feel Safe in your Home?: Yes Lack of Transportation: No Lack of Food: Never True Current Housing: I Have Housing Concerned About Future Housing: No Difficulty Paying Gas/Electric Bills: No Difficulty Paying for Meds: No Currently Unemployed: No Education: Bachelor's Degree Difficulty w/ Childcare or Family Care: No Spiritual care concerns: No Mod Sed Physical Exam Physical Exam Pre Procedural Exam: Normal: Heart Rate and Heart Rhythm and Variation: Lungs (rales) Hours since solid foods: 12 Hours since liquid intake: 12 Mallampati Classification: class II Internal Medicine - PN: Obj Da Vital Signs Vital Signs: Vital Signs - 24 hr 04/09/25 11:40 04/09/25 12:00 04/09/25 12:00 Temperature 36.5 C Pulse Rate 80 78 Respiratory Rate 14 Blood Pressure 101/67 Pulse Oximetry 100 100 Oxygen Delivery Room Air Fraction of Inspired Oxygen 04/09/25 14:00 04/09/25 15:26 04/09/25 16:00 Temperature 36.6 C Pulse Rate 87 81 Respiratory Rate 15 Blood Pressure 90/55 L Pulse Oximetry 100 100 Oxygen Delivery Room Air Fraction of Inspired Oxygen 04/09/25 16:00 04/09/25 16:16 04/09/25 18:00 Temperature Pulse Rate 76 79 Respiratory Rate Blood Pressure 90/70 L Pulse Oximetry Oxygen Delivery Fraction of Inspired Oxygen 04/09/25 18:44 04/09/25 20:00 04/09/25 20:00 Temperature 37.0 C Pulse Rate 86 85 80 Respiratory Rate 18 18 Blood Pressure 108/70 Pulse Oximetry 100 100 Oxygen Delivery Room Air Fraction of Inspired Oxygen 04/09/25 20:00 04/09/25 20:17 04/09/25 20:17 Temperature Pulse Rate 80 79 79 Respiratory Rate 16 20 20 Blood Pressure Pulse Oximetry 100 98 Oxygen Delivery Room Air Fraction of Inspired Oxygen 04/09/25 20:30 04/09/25 21:16 04/09/25 23:00 Temperature Pulse Rate 86 85 78 Respiratory Rate 18 Blood Pressure Pulse Oximetry Oxygen Delivery Fraction of Inspired Oxygen 04/10/25 00:00 04/10/25 00:00 04/10/25 00:00 Temperature 36.6 C Pulse Rate 73 73 78 Respiratory Rate 16 16 Blood Pressure 96/59 L Pulse Oximetry 100 96 Oxygen Delivery Room Air Fraction of Inspired Oxygen 04/10/25 02:33 04/10/25 02:33 04/10/25 02:45 Temperature Pulse Rate 74 74 75 Respiratory Rate 18 18 16 Blood Pressure Pulse Oximetry 96 Oxygen Delivery Room Air Fraction of Inspired Oxygen 04/10/25 03:00 04/10/25 04:00 04/10/25 04:00 Temperature Pulse Rate 81 80 80 Respiratory Rate 16 Blood Pressure Pulse Oximetry 96 Oxygen Delivery Room Air Fraction of Inspired Oxygen 04/10/25 07:25 04/10/25 07:40 04/10/25 07:40 Temperature 36.8 C Pulse Rate 84 79 Respiratory Rate 12 18 Blood Pressure 88/59 L Pulse Oximetry 99 98 Oxygen Delivery Room Air Fraction of Inspired Oxygen 04/10/25 07:52 04/10/25 08:00 04/10/25 08:00 Temperature Pulse Rate 81 92 85 Respiratory Rate 18 18 Blood Pressure Pulse Oximetry 98 Oxygen Delivery Room Air Fraction of Inspired Oxygen 21 04/10/25 09:11 Temperature Pulse Rate 85 Respiratory Rate Blood Pressure Pulse Oximetry Oxygen Delivery Fraction of Inspired Oxygen Intake/Output Intake/Output: Intake & Output 04/07/25 04/08/25 04/09/25 04/10/25 23:59 23:59 23:59 23:59 Intake Total 1800 2140 2130 Output Total 225 1550 1000 Balance 7513 459 7250 Meds/Results Medications: Active Medications Generic Name Dose Route Start Last Admin Trade Name Freq PRN Reason Stop Dose Admin Acetaminophen 650 mg 04/05/25 09:54 Acetaminophen 325 Mg Tablet PO Q4H PRN Mild Pain (1-3) or Fever Alprazolam 0.5 mg 04/07/25 19:39 04/09/25 21:24 Alprazolam (*Crx) 0.5 Mg Tablet PO 0.5 mg TID PRN Administration Anxiety Calcium Carbonate 200 mg 04/05/25 18:19 04/06/25 16:06 Calcium Carbonate (Tums) 500 Mg (200 Mg Elemental) PO 200 mg Q6H PRN Administration Indigestion Cefdinir 300 mg 04/09/25 21:00 04/10/25 09:02 Cefdinir 300 Mg Capsule PO 300 mg Q12HR G[facility]Y Administration Doxycycline Hyclate 100 mg 04/09/25 21:00 04/10/25 09:01 Doxycycline Hyclate 100 Mg Tablet PO 100 mg Q12HR G[facility] Administration Empagliflozin 10 mg 04/10/25 09:00 04/10/25 09:11 Empagliflozin 10 Mg Tablet PO 10 mg DAILY [facility] Administration Guaifenesin 1,200 mg 04/07/25 21:00 04/10/25 09:02 Guaifenesin 12 Hr 600 Mg Tabcr PO 1,200 mg Q12HR [facility] Administration Ipratropium [place] 0.5 mg 04/06/25 02:00 04/10/25 07:38 Ipratropium Br 0.02% Inh Soln 0.5 Mg/2.5 Ml Vial INHALATION 0.5 mg Q6HRT [facility]Y Administration Levalbuterol HCl 1.25 mg 04/06/25 02:00 04/10/25 07:38 Levalbuterol Neb 1.25 Mg/3 Ml INHALATION 1.25 mg Q6HRT [facility] Administration Levofloxacin 750 mg 04/10/25 09:00 04/10/25 09:01 Levofloxacin 750 Mg Tablet PO 750 mg DAILY [facility] Administration Metoprolol Succinate 25 mg 04/10/25 09:00 04/10/25 09:11 Metoprolol Succinate Ext Rel 25 Mg Tabcr PO 25 mg QAM G[facility]Y Administration Saccharomyces Boulardii 250 mg 04/09/25 17:00 04/09/25 17:10 Saccharomyces Boulardii 250 Mg Capsule PO 250 mg BID G[facility]Y Administration Sacubitril/Valsartan 1 tab 04/07/25 21:00 04/10/25 09:01 Sacubitril/Valsartan 24-26 Mg Tablet PO 1 tab Q12HR GABY Administration Spironolactone 25 mg 04/08/25 10:30 04/10/25 08:47 Spironolactone 25 Mg Tablet PO Not Given QAM [facility] Radiology Results: ITS Impressions Chest X-Ray 04/05/25 08:27 IMPRESSION: Early infiltrate suspected within the right upper lobe. Chest CTA 04/05/25 08:36 IMPRESSION: No pulmonary embolus. No thoracic aortic dissection. Multifocal infiltrates versus pulmonary edema affecting the right upper middle and lower lobes and left lower lobe. Mediastinal, hilar and upper abdominal lymphadenopathy is also detected, most likely reactive, but a systemic abnormality cannot be excluded based on the CT appearance. The lack of axillary lymphadenopathy makes the possibility of a systemic abnormality less likely. Labs 04/09/25 04:06 04/10/25 04:09 Labs: Laboratory Results - last 24 hr 04/10/25 04:09 Sodium 135 L Potassium 4.2 Chloride 105 Carbon Dioxide 25 Anion Gap 5 BUN 13 D Creatinine 0.82 Estim Creat Clear Calc 100 Estimated GFR > 60 Glucose 102 Calcium 8.9 ASA Classification/Sedation ASA Classification/Sedation ASA Class: III Emergent: No Risks: Risks, benefits and alternatives explained and patient/family accepted plan for sedation. Patient re-evaluated immediately prior to sedation.
--- NOTE | 2025-04-10 10:08 | WPDHPUPDATE1 ---
History and Physical Update Update Date/Time: 04/10/25 09:08 History and Physical has been reviewed, including an updated exam of the patient. There are NO changes in the patient's condition. Risks, benefits, and alternatives have been discussed and questions answered. Patient agrees to proceed with procedure.
--- NOTE | 2025-04-10 12:24 | WPDCARDPROC ---
Cardiac Cath Procedure Note Date of procedure:: 04/10/25 Performing physician:: CATHETERIZATION LABORATORY REPORT Procedure Date: 04/10/2025 Referring Physician: Dr. Keith Anesthesia: Versed and Fentanyl were ordered and given in my presence at 1152, procedure ended at 1218. Supervision of nurse, Martha Atwood monitored moderate sedation with 2mg Versed and 100mcg Fentanyl was provided for 26 minutes. Pre-op Diagnosis: New onset systolic heart failure Post-op Diagnosis: new onset systolic heart failure Procedure(s): Left heart catheterization with coronary angiography Access Site: Right radial artery Brief History and Clinical Indications: 44-year-old man who presented with shortness of breath found to have new onset systolic heart failure is here to define his coronary anatomy. All risks, benefits and alternatives to left heart catheterization with or without percutaneous coronary intervention was discussed at length with the patient. Risk of complications including but not limited to bleeding, infection, arrhythmia, stroke, worsening kidney function, blood loss, groin hematoma, limb loss, emergency coronary artery bypass grafting, and even were discussed with the patient and all questions were answered. The patient understood and wished to proceed. Time out called, patient name, date of , medical record number, allergies, procedure performed, identify System Admin, patient and staff member concurred with accurate data, procedure carried on. Findings: LEFT HEART CATHETERIZATION FINDINGS: 1. Left main: The left main coronary artery is widely patent without any significant obstructive disease. 2. Left anterior descending: The LAD and the diagonal branches was non-selectively assessed revealing RUDDY 3 flow with no angiographic high-grade stenosis. 3. Left circumflex: The left circumflex artery and the main marginal branches Is angiographically normal.. 4. Right coronary artery: The right coronary artery is a large dominant vessel that has a anonymous takeoff from the left coronary cusps with a separate ostium very close to the left main coronary artery. This vessel is angiographically free of disease. 5. Left ventricle: A. End-diastolic pressure 20 mmHg. B. LV gram deferred. C. No significant gradient across aortic valve on catheter pullback. 6. Opening AO pressure 94/68 and closing AO pressure 94/65 Description of Procedure: Informed consent signed and placed in the chart. Patient transferred to labor supervisor room. Prepped and draped in usual sterile fashion. 2% lidocaine injected subcutaneously in right wrist area. 22-gauge venipuncture catheter used to access the right radial artery with the Seldinger technique. 6-FR slender sheath placed in right radial artery. Nitroglycerin 200mcg, Verapamil 2.5mg, and Heparin 5000U was given intraarterial through the sheath. J wire advanced under fluoroscopy 5F Ultra diagnostic catheter kept disengaging from the Left Main Coronary Artery and was switched to a JL3.5 and then a Digna without success as the catheters used kept selecting the right coronary artery ostium that was adjacent to the LMCA takeoff. As a result, the LAD and its branches were nonselectively assessed. 5F Ultra diagnostic catheter engaged Right Coronary Artery Multiple orthogonal angiogram obtained and reviewed 5F Pigtail catheter crossed aortic valve to obtain LVEDP, LV angiogram deferred. Hemostasis was achieved by application of TR band. Assessment: nonischemic cardiomyopathy. Post Operative Condition: Stable No significant blood loss Disposition: Home Plan: Continue guideline directed medical therapy. Patient will have to follow up at [facility] outpatient for a coronary CTA to define the course of the anonymous right coronary artery. Avoid strenuous physical activity in the meantime. Patient can be discharged from the cardiology perspective for follow-up at the [facility]. Kenan Helton Interventional Cardiology
[2025-04-10] MEDS: SODIUM CHLORIDE 0.9% IV 1,000 ML 125 ML IV CONT (15:30)
[2025-04-10] MEDS: ONDANSETRON INJ 4 MG/2 ML VIAL IV PUSH (15:55)
--- NOTE | 2025-04-10 16:08 | PM.DS ---
DS: Admitting Diagnosis Discharge Date 04/10/25 Admitting Diagnosis Shortness of breath. DS: Discharge Diagnosis Discharge Diagnosis (1) Cardiomyopathy: Code(s): I42.9 - Cardiomyopathy, unspecified Status: Acute (2) Multifocal pneumonia: Code(s): J18.9 - Pneumonia, unspecified organism Status: Acute DS: Summary Hospital Course Hospital Course: 44-year-old male with its past medical history of PTSD hypersomnolence tinnitus presented to [facility] Worsening shortness of breadth. Upper extremity shortness of breath since Thursday associated with vomiting which has worsened in the last 24 was causing him to present to the ER for proper evaluation and care. Denies abdominal pain diarrhea dysuria leg tenderness full consciousness no weakness. Also reported more shortness of breath has been going on about a month ago followed up with his primary care physician who obtained a chest x-ray and he was told his heart is enlarged and echo was recommended. ER evaluation notable for respiratory 34, saturation 98% on room air. Labs notable for BNP 822, CT chest showed multifocal pneumonia. Patient was managed for Pneumonia and dsicharged on 4 mroe days of Cefdinir and Doxycycline. ECHO showed EF 20-25%, with tethering ot the sergio valve leaflets. Cardiology was consulted and patient was started on Empagliflozin, Entresto, spironolactone, Metoprolol. 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 Patient will follow up with Cardiology at [facility] F/u with PCP in 3-5 days F/u with cardiology at [facility] Time Spent with Patient Time attestation: Total time spent providing and/or coordinating discharge services: DS: Data Data Completed and Pending Labs on day of discharge: Labs from last 24 hours 04/10/25 04:09 Sodium 135 L Potassium 4.2 Chloride 105 Carbon Dioxide 25 Anion Gap 5 BUN 13 D Creatinine 0.82 Estim Creat Clear Calc 100 Estimated GFR > 60 Glucose 102 Calcium 8.9 Preliminary micro results at discharge 04/08/25 09:30 Sputum Culture - Preliminary Sputum 04/05/25 10:04 Blood Culture - Preliminary Blood 04/05/25 10:08 Blood Culture - Preliminary Blood Discharge Plan Discharge Attending physician on discharge: Mona Keith Consulting providers: Clark Greenberg; Kenan Helton Discharging Clinician: Mona Keith Anticipated Discharge Date/Time: 04/10/25 16:04 Patient Disposition: Home Activity: as tolerated Diet: as tolerated and heart healthy Patient Instructions: Antibiotic Form, Spironolactone (By mouth), Carvedilol (By mouth), Sacubitril/Valsartan (By mouth), Heart Failure (DC), Dilated Cardiomyopathy (DC), Community Acquired Pneumonia (DC) Patient Language: Wallisian Stand Alone Forms: General Discharge Information Follow-up/Referrals: Kenan Helton MD [Physician] - (F/u with cardiology as instructed ) [facility] [Primary Care Provider] - (F/u with PCP in 3-5 days) Discharge Medications: New Jardiance 10 mg Tablet 10 mg PO DAILY 30 Days Qty: 30 1RF metoprolol succinate [Toprol XL] 25 mg Tablet Extended Release 24 Hr 25 mg PO QAM 30 Days Qty: 30 1RF Entresto 24-26 mg Tablet 1 tab PO Q12HR 30 Days Qty: 60 1RF spironolactone 25 mg Tablet 25 mg PO QAM 30 Days Qty: 30 1RF cefdinir 300 mg Capsule 300 mg PO Q12HR 4 Days Qty: 8 0RF doxycycline hyclate 100 mg Tablet 100 mg PO Q12HR 4 Days Qty: 8 0RF Saccharomyces boulardii [Florastor] 250 mg Capsule 250 mg PO BID 30 Days Qty: 60 0RF Continued ibuprofen [IBU] 600 mg tablet 600 mg PO Q6H PRN (Reason: pain) Qty: 20 0RF dextroamphetamine-amphetamine [Adderall] 10 mg tablet 10 mg PO DAILY 30 Days Qty: 30 0RF Rx Instructions: Take in the afternoon. dextroamphetamine-amphetamine [Adderall XR] 25 mg capsule,extended release 24hr 25 mg PO DAILY 30 Days Qty: 30 0RF Rx Instructions: Take in the morning. Date of admission: 04/08/25 11:12 Primary Care Provider: BETTY ADMIN,SHANNEN Admitting Provider: Mona Keith Attending physician on admission: Mona Keith Condition: Stable
--- NOTE | 2025-04-10 17:29 | PC.NURSE ---
discussed discharge papers with patient including current medication list, when taken last and when do again. Family member at bedside. Verbalizes understanding at this time. Denies further questions. Patient wanted to walk. This RN walked with patient to front entrance where he was picked up by spouse in personal vehicle.
[2025-04-11 16:14] LABS: Pneumococcal Antigen Urine NOT DETECTED
[2025-04-11 16:58] LABS: Mycoplasma IgM Antibody Titer 117 U/mL
[2025-04-12 18:14] LABS: Legionella pneumophila Ag Ur NOT DETECTED
[2025-04-13 19:28] LABS: Adenovirus DNA Not Detected (Not Detected); Chlamydophila pneumoniae Not Detected (Not Detected); Coronavirus 229E Not Detected (Not Detected); Coronavirus HKU1 Not Detected (Not Detected); Coronavirus NL63 Not Detected (Not Detected); Coronavirus OC43 Not Detected (Not Detected); Human Metapneumovirus Detected (Not Detected); Human Parainfluenza Virus 1 Not Detected (Not Detected); Human Parainfluenza Virus 2 Not Detected (Not Detected); Human Parainfluenza Virus 3 Not Detected (Not Detected); Human Parainfluenza Virus 4 Not Detected (Not Detected); Human RSV B Not Detected (Not Detected); Influenza A Not Detected (Not Detected); Influenza B Not Detected (Not Detected); Mycoplasma pneumoniae Not Detected (Not Detected); Rhinovirus/Enterovirus Not Detected (Not Detected)
== END 2025-04-10 17:20 | disposition home or self-care (01) | DRG 286 ==
LOC: ANHED 10:08 → ANHIMU 10:41
PROVIDERS: Internal Medicine; Physician Assistant; Specialist; Admitting Provider Internal Medicine; Emergency Provider Emergency Medicine; Visit Provider Internal Medicine
PROC: 4A023N7 Measurement of Cardiac Sampling and Pressure, Left Heart, Percutaneous Approach (ICD-10-PCS; CPT 93452; principal; 2025-04-10 11:30)
DX: I50.20 Unspecified systolic (congestive) heart failure (principal); J18.9 Pneumonia, unspecified organism; I42.8 Other cardiomyopathies; F43.10 Post-traumatic stress disorder, unspecified; F32.A Depression, unspecified; F41.9 Anxiety disorder, unspecified; G47.11 Idiopathic hypersomnia with long sleep time; H93.19 Tinnitus, unspecified ear; I51.7 Cardiomegaly; I34.0 Nonrheumatic mitral (valve) insufficiency; Z87.891 Personal history of nicotine dependence; Z20.822 Contact with and (suspected) exposure to COVID-19
CPT/HCPCS: 36415; 71046; 71275; 80048; 80053; 81001; 83605; 83690; 83735; 83880; 84145; 84484; 85025; 85610; 85730; 86738; 87040; 87070; 87205; 87449; 87633; 87637; 87899; 93005; 93458; 94640; 96365; 96367; 96375; 96376; 99285; A9270; C1769; C1887; C1894; C8929; G0378; J0696; J1644; J1956; J2003; J2250; J2305; J2405; J2765; J3010; J7030; J7040; Q9957; Q9967